=== PATIENT | male | born 1945 | race Caucasian/White ===

== ENCOUNTER 2024-07-08 11:10 | Inpatient (IN) ==
--- NOTE | 2024-07-08 13:04 | Emergency Department Note ---
Impression & Plan Acute right flank pain, Pneumonia ED Provider Note NAME: EPHRAIM PÉREZ AGE: 79 SEX: Male INFORMANT: Patient ED PROVIDER(S): Juan Membreno MD CHIEF COMPLAINT: Right flank pain PLAN: Disposition: Admitted Outpatient prescription management: none Referral: None MEDICAL DECISION MAKING: Patient presented with acute right flank pain. He noted a pleuritic component and on examination he did have tenderness in the right upper quadrant with Alvarez sign. Discussed the possible etiologies. Patient underwent CT imaging of the abdomen pelvis and blood work was obtained. He was given IV Dilaudid and Zofran for symptom control. Patient did require several doses. He had an unremarkable CT scan of the abdomen pelvis. His gallbladder seemed prominent and his bilirubin was mildly elevated. He underwent ultrasound imaging but no abnormalities were found to suggest cholecystitis or acute cholangitis. Patient did have a mild leukocytosis and radiology thought there may be an early infiltrative process in the right lower lobe with pleural effusion. Under the circumstances with his level of pleuritic chest pain on the right side he underwent CT PE study. No obvious pulmonary embolism was noted. I did review the CT with Dr. Palmer who did evaluate the patient's CT scan of the abdomen pelvis. He did feel there was a infiltrate and effusion noted on the right side. Initial report did not note this in the chest. Patient was treated with IV Rocephin and doxycycline. Cultures were ordered. Given the patient's level of discomfort and doses of pain medication received he was requiring supplemental nasal cannula oxygen. I discussed further management in the hospital with him and family and they were very much in agreement. Consultation [facility] with the [facility]. Patient was evaluated in the ER and admitted for further management Care/management discussed with: international marketing manager Level of care consideration(s): After review of the information above and other included data, I feel the patient requires escalation of care to admission Triage Nursing notes: reviewed and agree them. Vital Signs: reviewed and remarkable for no significant abnormalities Additional History obtained from: none Chronic Medical/Social Conditions affecting care: Hypertension Prior/ Outside/ External records reviewed: none Differential Diagnosis: Renal colic, UTI, appendicitis, diverticulitis, mesenteric ischemia, aortic pathology, infections, inflammatory bowel disease, PUD, biliary pathology, cardiac sources, PE, as well as other pathologies. Diagnostics, independently interpreted by me: ECG: Twelve-lead ECG reveals atrial fibrillation [address] elevation or depression. Cardiac Monitoring: Cardiac monitoring ordered by me: The patient was placed on continuous cardiac monitoring and observed. It revealed a atrial fibrillation at 74 bpm. Medical decision rules: none Imaging studies: CT scan of the abdomen pelvis and chest as above. Right pleural effusion and right infiltrate noted. HPI: 79 year old Male arrives for evaluation of right flank pain. This started this morning and is worsened by a deep breath. The patient also notes the following associated symptoms, none. The patient has not taken any medication for relieving factors. Current pain is rated as 8/10. Pt denies LOC, headache, fevers, chills, diaphoresis, visual changes, neck pain nausea, vomiting, L abdominal pain, L back pain, melena, hematochezia, urinary symptoms, numbness, weakness, lymphadenopathy, rash, or other complaints. . PAST MEDICAL HISTORY: See Below, CAD, Afib PAST SURGICAL HISTORY: See Below, SOCIAL HISTORY: See Below, HOME MEDICATIONS: See Below ALLERGIES: See Below VITALS: See Below PHYSICAL EXAMINATION: GENERAL: Awake, alert, well-appearing, in no distress HENT: Normocephalic, atraumatic. Oropharynx unremarkable. EYES: Normal conjunctiva. Sclera non-icteric. NECK: Inspection normal. Non-tender. Supple. No nuchal rigidity. FROM. No masses. RESPIRATORY: Clear to auscultation. No wheezes. No rales. Normal respiratory effort. CARDIAC: Normal rate. Normal rhythm. No murmurs. No rubs. Extremities warm and well perfused. Pulses equal. No JVD. GI: Soft, non-distended. RUQ tenderness to palpation. No rebound or guarding. No masses. RECTAL: Deferred. MUSCULOSKELETAL: Atraumatic. Chest examination reveals no tenderness. The back is symmetrical on inspection without obvious abnormality. There is no CVA tenderness to palpation. No joint edema. LOWER EXTREMITIES: Calves are equal size bilaterally and non-tender. No edema. No discoloration. NEURO: Normal sensorium. No sensory or motor deficits noted. SKIN: No rash or jaundice noted. PROCEDURES: none CRITICAL CARE: none OBSERVATION NOTE: none Past Med/Surg History Problem List (Updated 07/08/24 @ 22:16 by Juan Membreno MD) Pneumonia (Acute) Right lower lobe pneumonia Pleurisy Acute right flank pain (Acute) Encounter for pre-operative examination Hypercalcemia Medical History CAD (coronary artery disease) CABG x 4 (2020) Follows with [facility] cardio Peripheral neuropathy Sleep apnea Home study showed he was having periods of apnea. Formal sleep study recommended (not done yet) Atrial fibrillation Taking Eliquis Hypertension Hyperlipidemia Surgical History Hx of cardiac catheterization (04/2021) 04/2021 > CABG x4 (05/2021) History of tonsillectomy History of inguinal hernia repair x2, right side History of cataract surgery (2020) Bilateral History of cystoscopy History of colonoscopy History of coronary artery bypass graft CABG x4 (2020) Family History Mother Hypertension Father Viral encephalitis Brother Coronary heart disease Other History of coronary artery bypass graft Social History Smoking Status: Former smoker Tobacco Type: Cigarettes Second Hand Exposure: No; Do You Dip or Chew Tobacco: Yes (1/2 can per day); Hx Alcohol Use: Yes Hx Substance Use: Yes Last Used Substance Other:: medical maijuana every night to sleep Preferred Language: Azeri Communication Ability: Effective Comic Artist Required: No Beliefs That Will Affect Care: None Current Living Situation: Spouse current occupation: Retired Feels Safe at Home: Yes Assistive Devices: Cane, Denture - Upper, Denture - Lower, Glasses, Hearing Aid - Bilateral and Walker Allergies Allergies Allergy/AdvReac Type Severity Reaction Status Date / Time lisinopril Allergy Severe Angioedema Verified 07/01/24 11:22 Home Meds Home Medications Medication Instructions Recorded Confirmed apixaban 5 mg tablet 5 mg PO BID 05/24/21 07/08/24 atorvastatin 80 mg tablet 40 mg PO PM 05/24/21 07/08/24 magnesium oxide 500 mg PO DAILY 05/24/21 07/08/24 potassium chloride 20 mEq 20 meq PO QAM 05/24/21 07/08/24 tablet,extended release aspirin 81 mg tablet,delayed 81 mg PO QAM 12/16/21 07/08/24 release (Adult Aspirin Regimen) coenzyme Q10 200 mg capsule 200 mg PO DAILY 12/16/21 07/08/24 cyanocobalamin (vitamin B-12) 500 500 mcg PO DAILY 12/16/21 07/08/24 mcg tablet folic acid 0.8 mg capsule 0.8 mg PO DAILY 12/16/21 07/08/24 furosemide 40 mg tablet 40 mg PO QAM 12/16/21 07/08/24 losartan 50 mg tablet 100 mg PO QAM 12/16/21 07/08/24 metoprolol succinate 25 mg 25 mg PO QAM 12/16/21 07/08/24 tablet,extended release 24 hr nitroglycerin 0.4 mg sublingual 0.4 mg sublingual Q5M PRN Chest 12/16/21 07/08/24 tablet Pain omeprazole 20 mg capsule,delayed 20 mg PO QAM 12/16/21 07/08/24 release vit 168-iron 27 mg-folic 1 cap PO QAM 12/16/21 07/08/24 acid 800 mcg-omega3 235 mg capsule (One-A-Day -1) vit C 250 mg-vit E 90 mg-zinc 40 1 tab PO DAILY 12/16/21 07/08/24 mg-copper 1 [id number] capsule (PreserVision AREDS-2) vitamin B complex (B 1 tab PO DAILY 12/21/21 07/08/24 Complex-Vitamin B12 tablet) amlodipine 5 mg tablet 5 mg PO QAM 07/01/24 07/08/24 evolocumab 140 mg/mL subcutaneous 140 mg subcut UD 07/01/24 07/08/24 pen injector (Elizabeth Brown) hydralazine 25 mg tablet 25 mg PO TID 07/01/24 07/08/24 Results & Data (ED) Vital Signs Vital Signs - 24 hr 07/08/24 11:14 07/08/24 12:01 07/08/24 12:12 Temperature 37.4 C Temperature Source Temporal Artery Scan Pulse Rate 96 H 88 Pulse Rate [Apical] Pulse Rate from SpO2 Sensor Pulse Rhythm Respiratory Rate 22 Respiratory Effort / Characteristics Non-Labored Non-Labored Respiratory Depth Normal Normal Respiratory Pattern Regular Blood Pressure 141/78 H Blood Pressure [Left Arm] Blood Pressure [Right Arm] Blood Pressure Mean 99 Blood Pressure Mean [Left Arm] Blood Pressure Mean [Right Arm] Pulse Oximetry 95 Oxygen Delivery Method Room Air Room Air Oxygen Flow Rate Sepsis Recent Fever Within 48 Hours No Sepsis New/Unexplained Change in Mental Status No Sepsis Action Taken by Nursing No Action Required Oxygen Flow Rate - Titration Pulse Oximetry Post Tiitration 07/08/24 12:12 07/08/24 12:28 07/08/24 13:44 Temperature Temperature Source Pulse Rate 79 Pulse Rate [Apical] 84 Pulse Rate from SpO2 Sensor Pulse Rhythm Irregular Respiratory Rate 18 18 Respiratory Effort / Characteristics Respiratory Depth Respiratory Pattern Blood Pressure Blood Pressure [Left Arm] 123/64 Blood Pressure [Right Arm] Blood Pressure Mean Blood Pressure Mean [Left Arm] 83 Blood Pressure Mean [Right Arm] Pulse Oximetry 95 90 Oxygen Delivery Method Room Air Room Air Oxygen Flow Rate Sepsis Recent Fever Within 48 Hours Sepsis New/Unexplained Change in Mental Status Sepsis Action Taken by Nursing Oxygen Flow Rate - Titration Pulse Oximetry Post Tiitration 07/08/24 15:48 07/08/24 15:51 07/08/24 16:00 Temperature Temperature Source Pulse Rate 85 Pulse Rate [Apical] 86 Pulse Rate from SpO2 Sensor Pulse Rhythm Respiratory Rate 24 27 H Respiratory Effort / Characteristics Non-Labored Spontaneous Respiratory Depth Normal Respiratory Pattern Regular Blood Pressure Blood Pressure [Left Arm] Blood Pressure [Right Arm] 141/71 H Blood Pressure Mean Blood Pressure Mean [Left Arm] Blood Pressure Mean [Right Arm] 94 Pulse Oximetry 90 87 L Oxygen Delivery Method Room Air Nasal Cannula Oxygen Flow Rate 0 Sepsis Recent Fever Within 48 Hours Sepsis New/Unexplained Change in Mental Status Sepsis Action Taken by Nursing Oxygen Flow Rate - Titration 2 Pulse Oximetry Post Tiitration 95 07/08/24 16:02 07/08/24 16:12 07/08/24 16:20 Temperature Temperature Source Pulse Rate 94 H 89 Pulse Rate [Apical] Pulse Rate from SpO2 Sensor 92 H Pulse Rhythm Respiratory Rate 24 Respiratory Effort / Characteristics Respiratory Depth Respiratory Pattern Blood Pressure 139/80 Blood Pressure [Left Arm] Blood Pressure [Right Arm] Blood Pressure Mean 104 Blood Pressure Mean [Left Arm] Blood Pressure Mean [Right Arm] Pulse Oximetry 92 Oxygen Delivery Method Nasal Cannula Oxygen Flow Rate 2 Sepsis Recent Fever Within 48 Hours Sepsis New/Unexplained Change in Mental Status Sepsis Action Taken by Nursing Oxygen Flow Rate - Titration Pulse Oximetry Post Tiitration 07/08/24 17:00 07/08/24 17:21 07/08/24 17:42 Temperature Temperature Source Pulse Rate 91 H 91 H 90 Pulse Rate [Apical] Pulse Rate from SpO2 Sensor Pulse Rhythm Respiratory Rate 22 21 21 Respiratory Effort / Characteristics Respiratory Depth Respiratory Pattern Blood Pressure Blood Pressure [Left Arm] Blood Pressure [Right Arm] Blood Pressure Mean Blood Pressure Mean [Left Arm] Blood Pressure Mean [Right Arm] Pulse Oximetry 96 98 Oxygen Delivery Method Nasal Cannula Nasal Cannula Oxygen Flow Rate 2 2 Sepsis Recent Fever Within 48 Hours Sepsis New/Unexplained Change in Mental Status Sepsis Action Taken by Nursing Oxygen Flow Rate - Titration Pulse Oximetry Post Tiitration Laboratory Data 07/08/24 Unknown 07/08/24 Unknown Lab Results 07/08/24 07/08/24 Range/Units 12:01 14:11 Lactate 0.7 (0.4-2.0) mmol/L Urine Color Yellow Urine Appearance Clear (Clear) Urine pH 6.5 (4.5-7.5) Ur Specific [place] 1.005 (1.000-1.030) Urine Protein Negative (Negative) Urine Glucose (UA) Negative (Negative) Urine Ketones Negative (Negative) Urine Blood Negative (Negative) Urine Nitrite Negative (Negative) Urine Bilirubin Negative (Negative) Urine Urobilinogen Negative (Negative) Ur Leukocyte Esterase Negative (Negative) Administered Medications Discontinued Medications Hydromorphone HCl (Hydromorphone Inj 0.5 Mg/0.5 Ml Syr) 0.25 mg IV Q15M PRN PRN Reason: Pain Stop: 07/22/24 13:06 Last Admin: 07/08/24 14:47 Dose: 0.25 mg Documented By: Admin: 07/08/24 13:30 Dose: 0.25 mg Documented By: MANNY Ceftriaxone Sodium (Rocephin) 2,000 mg in 50 mls @ 100 mls/hr IV NOW STA Stop: 07/08/24 17:59 Last Infusion: 07/08/24 20:12 Dose: Infused Documented By: Admin: 07/08/24 18:57 Dose: 100 mls/hr Documented By: PERICO Doxycycline Hyclate 100 mg/ (Dextrose) 100 mls @ 50 mls/hr IV NOW STA Stop: 07/08/24 19:29 Last Infusion: 07/08/24 21:30 Dose: Infused Documented By: Admin: 07/08/24 19:27 Dose: 50 mls/hr Documented By: KIRAN Acetaminophen (Ofirmev) 1,000 mg in 100 mls @ 400 mls/hr IV NOW STA Stop: 07/08/24 17:49 Last Infusion: 07/08/24 18:51 Dose: Infused Documented By: Admin: 07/08/24 18:10 Dose: 400 mls/hr Documented By: JOEL Ioversol (Optiray 320 125ml) 119 ml IV ONCE ONE Stop: 07/08/24 16:27 Last Admin: 07/08/24 16:26 Dose: 119 ml Documented By: WILNER Ketorolac Tromethamine (Ketorolac Tromethamine 15 Mg/Ml Vial) 15 mg IV NOW ONE Stop: 07/08/24 18:39 Last Admin: 07/08/24 19:08 Dose: 15 mg Documented By: PERICO Lidocaine (Lidocaine 5% 1 Patch) 1 patch TD NOW STA Stop: 07/08/24 18:39 Last Admin: 07/08/24 19:09 Dose: 1 patch Documented By: PERICO Ondansetron HCl (Ondansetron Inj 2 Mg/Ml 2 Ml Vial) 4 mg IV NOW STA Stop: 07/08/24 13:08 Last Admin: 07/08/24 13:30 Dose: 4 mg Documented By: MANNY Imaging Data Radiologist's Impression: Abdomen/Pelvis CT 07/08/24 13:07 CT SCAN OF THE ABDOMEN AND PELVIS WITHOUT IV CONTRAST CLINICAL HISTORY: Right upper quadrant abdominal pain/right flank pain. COMPARISON STUDY: No priors. TECHNIQUE: CT scan of the abdomen and pelvis is performed from the lung bases to the proximal femora. Images are reviewed in the axial, sagittal, and coronal planes. IV contrast was not administered for this examination. A dose lowering technique was utilized adhering to the principles of ALARA. CT DOSE: 826.04 mGy.cm FINDINGS: Lung bases: The patient is status post midline sternotomy. The heart is enlarged and without pericardial effusion. The coronary arteries are densely calcified. The main pulmonary arteries are dilated suggesting pulmonary artery hypertension. Fibrotic changes seen at both lung bases. Question superimposed airspace opacities at the right lung base. Trace pleural fluid is seen on the right. A 6 mm pleural-based nodule in the right middle lobe along the minor fissure is seen on image #1. A 9 mm left basilar nodule as seen on image #18. There is a small hiatal hernia. Liver: The unenhanced liver is normal in size, contour, and attenuation. There is no intrahepatic biliary ductal dilatation. Gallbladder: Unremarkable. Spleen: Normal in size and attenuation. Pancreas: Unremarkable. Adrenal glands: Unremarkable. Kidneys: The unenhanced kidneys are normal in size and without hydronephrosis. There is a 3 mm nonobstructing right renal calculus. There are at least 5 nonobstructing left renal calculi which measure up to 4 mm. No ureteral stone is seen. Simple and complex renal cysts measuring up to 2.5 cm. Abdominal vasculature: The abdominal aorta is normal in course and caliber noting advanced atherosclerotic calcification. Bowel: There is mild colonic diverticulosis without CT evidence of acute diverticulitis. No bowel obstruction is seen. Mild fecal retention is seen throughout the colon. A duodenal diverticulum is noted. The appendix is well- visualized and normal. Peritoneum: There is no intraperitoneal free air or abdominal ascites. There is a small fat-containing umbilical hernia. Lymphadenopathy: None. Pelvic viscera: The prostate gland is diminutive and heterogeneous. The bladder is mildly distended, and the wall appears thickened/trabeculated indicating chronic outlet obstruction. Skeletal structures: The skeletal structures are osteopenic. There is moderate lumbosacral spondylosis. No lytic or blastic lesions are seen. IMPRESSION: 1. No acute infectious or inflammatory findings are identified in the abdomen or pelvis. 2. Cardiomegaly with fibrotic change seen at both lung bases. 3. Question superimposed airspace consolidation at the right lung base, and there is also trace pleural fluid on the right. Correlate clinically for evidence of a superimposed pneumonia/aspiration pneumonitis. 4. Bibasilar pulmonary nodules measuring up to 9 mm. Correlate with any prior outside imaging studies to assess for stability. If no prior studies are available a 3-4 month follow-up chest CT is recommended for reevaluation and full assessment of the thorax. 5. Bilateral nephrolithiasis. 6. Additional findings as above. ACT 112: Negative or not required by law. Electronically signed by: Ken Palmer M.D. 07/08/2024 1:40 PM Gallbladder Ultrasound 07/08/24 14:32 US gallbladder CLINICAL HISTORY: RUQ pain TECHNIQUE: Multiple real-time sonographic images of the right upper quadrant were obtained. Comparison: Comparison is made to CT abdomen pelvis 07/08/2024 FINDINGS: The liver is diffusely homogenous with normal contour and echogenicity. No focal mass lesions are seen. No intrahepatic ductal dilatation is seen. No gallstones or sludge are identified within the gallbladder. The gallbladder wall is not thickened. There is no pericholecystic fluid present. A sonographic Alvarez's sign was not elicited by the business intelligence administrator. The common duct measures 0.5 cm in diameter at the level of the hepatic artery. The visualized portions of the pancreas appear normal. The right kidney shows normal echogenicity, cortical thickness and renal contour. The right kidney shows no evidence of hydronephrosis. A cyst in the upper pole measures 1.5 x 1.6 x 1.3 cm. No ascites or free fluid is seen in Zimmer's pouch. IMPRESSION: Unremarkable right upper quadrant ultrasound. ACT 112: Negative or not required by law. Electronically signed by: Ramsey Fraga M.D. 07/08/2024 3:45 PM Chest CTA 07/08/24 15:47 CT angio chest PE protocol CLINICAL HISTORY: RUQ abd, pleuritic CP ?PE TECHNIQUE: Multidetector row helical CT of the chest was performed with angiographic protocol. Coronal and sagittal reformations were obtained. Coronal and sagittal MIPS were obtained from the axial data set and were submitted for review. Automated dose lowering techniques and/or adjustment according to patient size were utilized for this exam. CT DOSE: 483.27 mGy.cm Comparison: None available at the time of this dictation. FINDINGS: Lungs and pleura: Peripheral interstitial thickening is seen. Right fissural nodule is noted. There is an 8 mm nodule left lower lobe (series 4 image 96). Heart and pericardium: Cardiomegaly is seen with biatrial enlargement. Atrial appendage clip is seen. Vessels: No evidence of pulmonary embolism. Severe atherosclerotic disease is seen. Mediastinum and liz: Unremarkable. Chest wall and lower neck: Unremarkable. Abdomen: A hiatal hernia is seen. Bones: Degenerative changes in the thoracic spine. IMPRESSION: 1. No acute abnormality and in particular no evidence of pulmonary embolus. 2. Left lower lobe pulmonary nodule. According to Fleischner criteria, 3 month follow-up CT is recommended. 3. Interstitial lung disease. ACT 112: Negative or not required by law. Electronically signed by: Ramsey Fraga M.D. 07/08/2024 4:41 PM Discharge Plan Visit Data Chief Complaint: Back Injury/Pain Stated Complaint: BACK PAIN TO FRONT, SOB W/ PAIN, CONSTIPATION ED Provider: Juan Membreno Discharge Problem: Acute right flank pain, Pneumonia Discharge Instructions Interventions: ED Discharge Assessment Last Done: 07/08/24 21:18
[2024-07-08 13:09] LABS: Appearance Urine Clear (Clear); Bilirubin Urine Negative (Negative); Blood Urine Negative (Negative); Color Urine Yellow; Glucose Urine UA Negative (Negative); Ketones Urine Negative (Negative); Leukocyte Esterase Urine Negative (Negative); Nitrite Urine Negative (Negative); Protein Urine Negative (Negative); Specific Gravity Urine 1.005 (1.000-1.030); Urobilinogen Urine Negative (Negative); pH Urine 6.5 (4.5-7.5)
[2024-07-08 13:12] LABS: Basophils # (auto) 0.03 K/uL (0.00-0.20); Basophils % (auto) 0.3 %; Eosinophils # (auto) 0.04 K/uL (0.00-0.50); Eosinophils % (auto) 0.3 %; Hematocrit (blood only) 38.9 % (42.0-52.0); Hemoglobin 13.2 g/dl (14.0-18.0); Immature Granulocytes # (auto) 0.04 K/uL (0.01-0.20); Immature Granulocytes % (auto) 0.3 %; Lymphocytes % (auto) 8.7 %; Mean Corpuscular Hemoglobin 32.5 pg (25.0-34.0); Mean Corpuscular Hgb Conc 33.9 g/dL (32.0-36.0); Mean Corpuscular Volume 95.8 fL (80.0-100.0); Mean Platelet Volume 10.6 fL (9.4-12.4); Monocytes # (auto) 1.22 K/uL (0.11-0.59); Monocytes % (auto) 10.7 %; Neutrophils # (auto) 9.11 K/uL (1.40-6.50); Neutrophils % (auto) 79.7 %; Platelet Count 159 K/uL (130-400); RDW Standard Deviation 45.5 fL (36.4-46.3); Red Blood Count 4.06 M/uL (4.70-6.10); White Blood Count 11.44 K/ul (4.8-10.8)
[2024-07-08] MEDS: ONDANSETRON INJ 2 MG/ML 2 ML VIAL IV STA (13:30)
[2024-07-08] MEDS: HYDROmorphone INJ 0.5 MG/0.5 ML SYR IV PRN (13:30)
[2024-07-08 13:40] LABS: Albumin Globulin Ratio 1.4 (0.9-2); Albumin Level 4.7 gm/dl (3.4-5.0); BUN Creatinine Ratio 14.8 (10-20); Bilirubin,Total 1.2 mg/dl (0.2-1.0); Calcium 10.8 mg/dl (8.6-10.3); Creatinine Clr Calc Pharmacy 93.3 ml/min; Globulin 3.3 gm/dl (2.5-4.0); Potassium 3.5 mmol/L (3.5-5.1)
[2024-07-08 13:42] LABS: Troponin I High Sensitivity 5.3 pg/ml (0-20)
--- NOTE | 2024-07-08 13:42 | CT Scan Report ---
CT SCAN OF THE ABDOMEN AND PELVIS WITHOUT IV CONTRAST CLINICAL HISTORY: Right upper quadrant abdominal pain/right flank pain. COMPARISON STUDY: No priors. TECHNIQUE: CT scan of the abdomen and pelvis is performed from the lung bases to the proximal femora. Images are reviewed in the axial, sagittal, and coronal planes. IV contrast was not administered for this examination. A dose lowering technique was utilized adhering to the principles of ALARA. CT DOSE: 826.04 mGy.cm FINDINGS: Lung bases: The patient is status post midline sternotomy. The heart is enlarged and without pericard ial effusion. The coronary arteries are densely calcified. The main pulmonary arteries are dilated nj ggesting pulmonary artery hypertension. Fibrotic changes seen at both lung bases. Question superimpos ed airspace opacities at the right lung base. Trace pleural fluid is seen on the right. A 6 mm pleura l-based nodule in the right middle lobe along the minor fissure is seen on image #1. A 9 mm left basi lar nodule as seen on image #18. There is a small hiatal hernia. Liver: The unenhanced liver is normal in size, contour, and attenuation. There is no intrahepatic ruthie iary ductal dilatation. Gallbladder: Unremarkable. Spleen: Normal in size and attenuation. Pancreas: Unremarkable. Adrenal glands: Unremarkable. Kidneys: The unenhanced kidneys are normal in size and without hydronephrosis. There is a 3 mm nonobs tructing right renal calculus. There are at least 5 nonobstructing left renal calculi which measure u p to 4 mm. No ureteral stone is seen. Simple and complex renal cysts measuring up to 2.5 cm. Abdominal vasculature: The abdominal aorta is normal in course and caliber noting advanced atheroscle rotic calcification. Bowel: There is mild colonic diverticulosis without CT evidence of acute diverticulitis. No bowel obs truction is seen. Mild fecal retention is seen throughout the colon. A duodenal diverticulum is noted . The appendix is well-visualized and normal. Peritoneum: There is no intraperitoneal free air or abdominal ascites. There is a small fat-containin g umbilical hernia. Lymphadenopathy: None. Pelvic viscera: The prostate gland is diminutive and heterogeneous. The bladder is mildly distended, and the wall appears thickened/trabeculated indicating chronic outlet obstruction. Skeletal structures: The skeletal structures are osteopenic. There is moderate lumbosacral spondylosi s. No lytic or blastic lesions are seen. IMPRESSION: 1. No acute infectious or inflammatory findings are identified in the abdomen or pelvis. 2. Cardiomegaly with fibrotic change seen at both lung bases. 3. Question superimposed airspace consolidation at the right lung base, and there is also trace pleur al fluid on the right. Correlate clinically for evidence of a superimposed pneumonia/aspiration pneum onitis. 4. Bibasilar pulmonary nodules measuring up to 9 mm. Correlate with any prior outside imaging studies to assess for stability. If no prior studies are available a 3-4 month follow-up chest CT is recomme nded for reevaluation and full assessment of the thorax. 5. Bilateral nephrolithiasis. 6. Additional findings as above. ACT 112: Negative or not required by law. Electronically signed by: Ken Palmer M.D. 07/08/2024 1:40 PM
--- NOTE | 2024-07-08 15:46 | Ultrasound Report ---
US gallbladder CLINICAL HISTORY: RUQ pain TECHNIQUE: Multiple real-time sonographic images of the right upper quadrant were obtained. Comparison: Comparison is made to CT abdomen pelvis 07/08/2024 FINDINGS: The liver is diffusely homogenous with normal contour and echogenicity. No focal mass lesions are see n. No intrahepatic ductal dilatation is seen. No gallstones or sludge are identified within the g allbladder. The gallbladder wall is not thickened. There is no pericholecystic fluid present. A sonog raphic Alvarez's sign was not elicited by the extension service specialist in charge. The common duct measures 0.5 cm in diamet er at the level of the hepatic artery. The visualized portions of the pancreas appear normal. The right kidney shows normal echogenicity, cortical thickness and renal contour. The right kidney sh ows no evidence of hydronephrosis. A cyst in the upper pole measures 1.5 x 1.6 x 1.3 cm. No ascites or free fluid is seen in Zimmer's pouch. IMPRESSION: Unremarkable right upper quadrant ultrasound. ACT 112: Negative or not required by law. Electronically signed by: Ramsey Fraga M.D. 07/08/2024 3:45 PM
--- NOTE | 2024-07-08 16:24 | Electrocardiogram Report ---
Test Reason : Blood Pressure : */* mmHG Vent. Rate : 87 BPM Atrial Rate : * BPM P-R Int : * ms QRS Dur : 92 ms QT Int : 372 ms P-R-T Axes : * 42 56 degrees QTcB Int : 447 ms Atrial fibrillation Abnormal ECG No previous ECGs available Confirmed by Raman Dwyer ([id number]) on 07/08/2024 4:24:04 PM Referred By: REFERRED SELF Confirmed By: Raman Dwyer
[2024-07-08] MEDS: OPTIRAY 320 125ml IV ONE (16:26)
--- NOTE | 2024-07-08 16:43 | CT Scan Report ---
CT angio chest PE protocol CLINICAL HISTORY: RUQ abd, pleuritic CP ?PE TECHNIQUE: Multidetector row helical CT of the chest was performed with angiographic protocol. Alford l and sagittal reformations were obtained. Coronal and sagittal MIPS were obtained from the axial jd a set and were submitted for review. Automated dose lowering techniques and/or adjustment according to patient size were utilized for this exam. CT DOSE: 483.27 mGy.cm Comparison: None available at the time of this dictation. FINDINGS: Lungs and pleura: Peripheral interstitial thickening is seen. Right fissural nodule is noted. There i s an 8 mm nodule left lower lobe (series 4 image 96). Heart and pericardium: Cardiomegaly is seen with biatrial enlargement. Atrial appendage clip is seen. Vessels: No evidence of pulmonary embolism. Severe atherosclerotic disease is seen. Mediastinum and liz: Unremarkable. Chest wall and lower neck: Unremarkable. Abdomen: A hiatal hernia is seen. Bones: Degenerative changes in the thoracic spine. IMPRESSION: 1. No acute abnormality and in particular no evidence of pulmonary embolus. 2. Left lower lobe pulmonary nodule. According to Fleischner criteria, 3 month follow-up CT is recom mended. 3. Interstitial lung disease. ACT 112: Negative or not required by law. Electronically signed by: Ramsey Fraga M.D. 07/08/2024 4:41 PM
--- NOTE | 2024-07-08 18:02 | History & Physical Report ---
Date of Service July 08, 2024 Assessment & Plan (1) Pleurisy: (2) Right lower lobe pneumonia: (3) CAD (coronary artery disease): (4) Atrial fibrillation: (5) Hypertension: (6) Hyperlipidemia: Plan This is a 79-year-old male who has significant past medical history of CAD with CABG x 4 ((ANTUNEZ to LAD, SVG to ramus, OM, PDA), radiofrequency atrial ablation, and ligation of the left atrial appendage with a 45 mm Atricure clip by Dr. Lazo), PAF with history of maze procedure, HTN, HLD, prediabetes, mild aortic regurgitation, mild mitral regurgitation, suspected sleep apnea, cerebellar ataxia, chronic bilateral low back pain, autoimmune cerebellar degeneration who presents to ED secondary to shortness of breath and right flank pain x 1 day. Pt Underwent FERNIE on 07/03, ? if pt had episode of aspiration R lung Pleurisy RLL Pneumonia admit to Pager tx with IV unasyn and oral doxy, + probiotic incentive spirometry, prn neb, Lidocaine patch give one time dose of Toradol x 1 now biofire pending --CT Question superimposed airspace consolidation at the right lung base, and there is also trace pleural fluid on the right. Correlate clinically for evidence of a superimposed pneumonia/aspiration pneumonitis. CAD s/p CABG x 4 - no CP, continue asa, eliquis, losartan, hydralazine, repatha PAF with ANAMIKA - rate controlled on metoprolol, continue apixaban HTN: chronic, stable on losartan, hydralazine, lasix, metoprolol, amlodipine HLD: chronic, stable on statin and repatha Pulmonary Nodule: incidental finding on CT, Left lower lobe pulmonary nodule. According to Fleischner criteria, 3 month follow-up CT is recommended. DVT ppx: Eliquis FULL CODE PCP: Ariana Dispo: admit to Pager Pt was seen and examined in collaboration with Dr. Peres, please see addendum I spent a total of 76 minutes minutes reviewing notes, outpatient records, labs, medication, coordinating, documenting and providing care for this patient excluding time spent in the performance of separately billed services. History of Present Illness Chief Complaint: Shortness of breath and right flank pain x 1 day. Primary Care Provider: Dk Lane MD This is a 79-year-old male who has significant past medical history of CAD with CABG x 4 ((ANTUNEZ to LAD, SVG to ramus, OM, PDA), radiofrequency atrial ablation, and ligation of the left atrial appendage with a 45 mm Atricure clip by Dr. Lazo), PAF with history of maze procedure, HTN, HLD, prediabetes, mild aortic regurgitation, mild mitral regurgitation, suspected sleep apnea, cerebellar ataxia, chronic bilateral low back pain, autoimmune cerebellar degeneration who presents to ED secondary to shortness of breath and right flank pain x 1 day. History obtained from patient, family at bedside and chart review. Patient recently underwent Trans esophageal echocardiogram on 07/03/2024 which reserved a preserved EF 55 to 60%, status post a surgical left atrial appendage occlusion with atrial clip device. There is no residual flow within the left atrial appendage. There is a mobile linear echodensity on the aortic aspect of the aortic valve measuring 9 mm x 2 mm consistent with a Lambl's excrescence. Pt reports Pain to his R flank and around to this R lower abdomen since last evening. It abruptly woke him from sleep at 2 a.m. to the point he was having difficulty breathing. He states the pain is so severe it takes his breath away. He complains of severe pain with inspiration and inability to take a deep breath. He has a minimal cough. He is unaware of an aspirating event during his procedure. He denies f/c/s, hemoptysis, n/v/d, abd pain, change in bowel or urinary habits. Allergies Allergy/AdvReac Type Severity Reaction Status Date / Time lisinopril Allergy Severe Angioedema Verified 07/01/24 11:22 Home Medications Medication Instructions Recorded Confirmed Type apixaban 5 mg tablet 5 mg PO BID 05/24/21 07/08/24 History atorvastatin 80 mg tablet 40 mg PO PM 05/24/21 07/08/24 History magnesium oxide 500 mg PO DAILY 05/24/21 07/08/24 History potassium chloride 20 mEq 20 meq PO QAM 05/24/21 07/08/24 History tablet,extended release aspirin 81 mg tablet,delayed 81 mg PO QAM 12/16/21 07/08/24 History release (Adult Aspirin Regimen) coenzyme Q10 200 mg capsule 200 mg PO DAILY 12/16/21 07/08/24 History cyanocobalamin (vitamin B-12) 500 500 mcg PO DAILY 12/16/21 07/08/24 History mcg tablet folic acid 0.8 mg capsule 0.8 mg PO DAILY 12/16/21 07/08/24 History furosemide 40 mg tablet 40 mg PO QAM 12/16/21 07/08/24 History losartan 50 mg tablet 100 mg PO QAM 12/16/21 07/08/24 History metoprolol succinate 25 mg 25 mg PO QAM 12/16/21 07/08/24 History tablet,extended release 24 hr nitroglycerin 0.4 mg sublingual 0.4 mg sublingual Q5M PRN Chest 12/16/21 07/08/24 History tablet Pain omeprazole 20 mg capsule,delayed 20 mg PO QAM 12/16/21 07/08/24 History release vit 168-iron 27 mg-folic 1 cap PO QAM 12/16/21 07/08/24 History acid 800 mcg-omega3 235 mg capsule (One-A-Day -1) vit C 250 mg-vit E 90 mg-zinc 40 1 tab PO DAILY 12/16/21 07/08/24 History mg-copper 1 [id number]-olfguo capsule (PreserVision AREDS-2) vitamin B complex (B 1 tab PO DAILY 12/21/21 07/08/24 History Complex-Vitamin B12 tablet) amlodipine 5 mg tablet 5 mg PO QAM 07/01/24 07/08/24 History evolocumab 140 mg/mL subcutaneous 140 mg subcut UD 07/01/24 07/08/24 History pen injector (Elizabeth Brown) hydralazine 25 mg tablet 25 mg PO TID 07/01/24 07/08/24 History Past Med/Surg History Problem List (Updated 07/08/24 @ 18:52 by Jeimy Anderson PA-C) Right lower lobe pneumonia Pleurisy Acute right flank pain (Acute) Encounter for pre-operative examination Hypercalcemia Medical History CAD (coronary artery disease) CABG x 4 (2020) Follows with [facility] Peripheral neuropathy Sleep apnea Home study showed he was having periods of apnea. Formal sleep study recommended (not done yet) Atrial fibrillation Taking Eliquis Hypertension Hyperlipidemia Surgical History Hx of cardiac catheterization (04/2021) 04/2021 > CABG x4 (05/2021) History of tonsillectomy History of inguinal hernia repair x2, right side History of cataract surgery (2020) Bilateral History of cystoscopy History of colonoscopy History of coronary artery bypass graft CABG x4 (2020) Family History Mother Hypertension Father Viral encephalitis Brother Coronary heart disease Other History of coronary artery bypass graft Social History Smoking Status: Former smoker Tobacco Type: Cigarettes Second Hand Exposure: No; Do You Dip or Chew Tobacco: Yes (1/2 can per day); Hx Alcohol Use: Yes Hx Substance Use: Yes Last Used Substance Other:: medical joaquim every night to sleep Preferred Language: Stateless Communication Ability: Effective Web Knitter Required: No Beliefs That Will Affect Care: None Current Living Situation: Spouse current occupation: Retired Feels Safe at Home: Yes Assistive Devices: Cane, Denture - Upper, Denture - Lower, Glasses, Hearing Aid - Bilateral and Walker Review of Systems Review of Systems: All systems reviewed & are unremarkable except as noted in HPI & below Physical Exam Physical Exam: Constitutional: WD/WN, vitals as above, NAD, sitting up in bed, pleasant, conversing easily Head: Normocephalic, Atraumatic Eyes: PERRL, conjunctivae normal, anicteric sclerae ENMT: external ear and nose normal, oropharynx normal Neck: trachea midline, no thyromegaly normal visual inspection Respiratory: normal respiratory effort, +guarding with inspiration, + rales to RLL, lungs clear to auscultation, no wheeze,rhonchi. on 2L of O2 Heart: IRR/IRR, no murmur noted Chest: normal inspection of chest Abdomen: normal bowel sounds, soft, nontender, no hepatosplenomegaly Musculoskeletal: no cyanosis or clubbing, extremities motor strength 5/5 Skin: no rashes, warm and dry normal turgor Neurologic: PERRL, EOMI, accommodation nl, no face palsy, no dysarthria CN's II-XI intact bilaterally and moves all extremities Psychiatric: A+Ox3, euthymic affect Lymphatic: no cervical or axillary lymphadenopathy : deferred Results & Data Results & Data Vital Signs (Past 12 Hours) Vital Signs Temp Pulse Pulse Resp BP BP BP 07/08/24 16:20 89 07/08/24 15:51 07/08/24 15:48 86 24 141/71 H 07/08/24 13:44 84 18 123/64 07/08/24 12:28 79 18 07/08/24 12:12 07/08/24 12:12 07/08/24 12:01 88 07/08/24 11:14 37.4 C 96 H 22 141/78 H Pulse Ox O2 Del Method O2 Flow Rate 07/08/24 16:20 07/08/24 15:51 87 L Nasal Cannula 0 07/08/24 15:48 90 Room Air 07/08/24 13:44 90 07/08/24 12:28 95 Room Air 07/08/24 12:12 Room Air 07/08/24 12:12 Room Air 07/08/24 12:01 07/08/24 11:14 95 Room Air Laboratory Results I have independently reviewed and interpreted patient's admitting labs including CBC, CMP, trop, lipase, urine Diagnostic Findings Abdomen/Pelvis CT 07/08/24 13:07 CT SCAN OF THE ABDOMEN AND PELVIS WITHOUT IV CONTRAST CLINICAL HISTORY: Right upper quadrant abdominal pain/right flank pain. COMPARISON STUDY: No priors. TECHNIQUE: CT scan of the abdomen and pelvis is performed from the lung bases to the proximal femora. Images are reviewed in the axial, sagittal, and coronal planes. IV contrast was not administered for this examination. A dose lowering technique was utilized adhering to the principles of ALARA. CT DOSE: 826.04 mGy.cm FINDINGS: Lung bases: The patient is status post midline sternotomy. The heart is enlarged and without pericardial effusion. The coronary arteries are densely calcified. The main pulmonary arteries are dilated suggesting pulmonary artery hypertension. Fibrotic changes seen at both lung bases. Question superimposed airspace opacities at the right lung base. Trace pleural fluid is seen on the right. A 6 mm pleural-based nodule in the right middle lobe along the minor fissure is seen on image #1. A 9 mm left basilar nodule as seen on image #18. There is a small hiatal hernia. Liver: The unenhanced liver is normal in size, contour, and attenuation. There is no intrahepatic biliary ductal dilatation. Gallbladder: Unremarkable. Spleen: Normal in size and attenuation. Pancreas: Unremarkable. Adrenal glands: Unremarkable. Kidneys: The unenhanced kidneys are normal in size and without hydronephrosis. There is a 3 mm nonobstructing right renal calculus. There are at least 5 nonobstructing left renal calculi which measure up to 4 mm. No ureteral stone is seen. Simple and complex renal cysts measuring up to 2.5 cm. Abdominal vasculature: The abdominal aorta is normal in course and caliber noting advanced atherosclerotic calcification. Bowel: There is mild colonic diverticulosis without CT evidence of acute diverti culitis. No bowel obstruction is seen. Mild fecal retention is seen throughout the colon. A duodenal diverticulum is noted. The appendix is well-visualized and normal. Peritoneum: There is no intraperitoneal free air or abdominal ascites. There is a small fat-containing umbilical hernia. Lymphadenopathy: None. Pelvic viscera: The prostate gland is diminutive and heterogeneous. The bladder is mildly distended, and the wall appears thickened/trabeculated indicating chronic outlet obstruction. Skeletal structures: The skeletal structures are osteopenic. There is moderate lumbosacral spondylosis. No lytic or blastic lesions are seen. IMPRESSION: 1. No acute infectious or inflammatory findings are identified in the abdomen or pelvis. 2. Cardiomegaly with fibrotic change seen at both lung bases. 3. Question superimposed airspace consolidation at the right lung base, and there is also trace pleural fluid on the right. Correlate clinically for evidence of a superimposed pneumonia/aspiration pneumonitis. 4. Bibasilar pulmonary nodules measuring up to 9 mm. Correlate with any prior outside imaging studies to assess for stability. If no prior studies are available a 3-4 month follow-up chest CT is recommended for reevaluation and full assessment of the thorax. 5. Bilateral nephrolithiasis. 6. Additional findings as above. ACT 112: Negative or not required by law. Electronically signed by: Ken Palmer M.D. 07/08/2024 1:40 PM Gallbladder Ultrasound 07/08/24 14:32 US gallbladder CLINICAL HISTORY: RUQ pain TECHNIQUE: Multiple real-time sonographic images of the right upper quadrant were obtained. Comparison: Comparison is made to CT abdomen pelvis 07/08/2024 FINDINGS: The liver is diffusely homogenous with normal contour and echogenicity. No focal mass lesions are seen. No intrahepatic ductal dilatation is seen. No gallstones or sludge are identified within the gallbladder. The gallbladder wall is not thickened. There is no pericholecystic fluid present. A sonographic Alvarez's sign was not elicited by the supervisor print line. The common duct measures 0.5 cm in diameter at the level of the hepatic artery. The visualized portions of the pancreas appear normal. The right kidney shows normal echogenicity, cortical thickness and renal contour. The right kidney shows no evidence of hydronephrosis. A cyst in the upper pole measures 1.5 x 1.6 x 1.3 cm. No ascites or free fluid is seen in Zimmer's pouch. IMPRESSION: Unremarkable right upper quadrant ultrasound. ACT 112: Negative or not required by law. Electronically signed by: Ramsey Fraga M.D. 07/08/2024 3:45 PM Chest CTA 07/08/24 15:47 CT angio chest PE protocol CLINICAL HISTORY: RUQ abd, pleuritic CP ?PE TECHNIQUE: Multidetector row helical CT of the chest was performed with angiographic protocol. Coronal and sagittal reformations were obtained. Coronal and sagittal MIPS were obtained from the axial data set and were submitted for review. Automated dose lowering techniques and/or adjustment according to patient size were utilized for this exam. CT DOSE: 483.27 mGy.cm Comparison: None available at the time of this dictation. FINDINGS: Lungs and pleura: Peripheral interstitial thickening is seen. Right fissural nodule is noted. There is an 8 mm nodule left lower lobe (series 4 image 96). Heart and pericardium: Cardiomegaly is seen with biatrial enlargement. Atrial appendage clip is seen. Vessels: No evidence of pulmonary embolism. Severe atherosclerotic disease is seen. Mediastinum and liz: Unremarkable. Chest wall and lower neck: Unremarkable. Abdomen: A hiatal hernia is seen. Bones: Degenerative changes in the thoracic spine. IMPRESSION: 1. No acute abnormality and in particular no evidence of pulmonary embolus. 2. Left lower lobe pulmonary nodule. According to Fleischner criteria, 3 month follow-up CT is recommended. 3. Interstitial lung disease. ACT 112: Negative or not required by law. Electronically signed by: Ramsey Fraga M.D. 07/08/2024 4:41 PM Medications Administered Medication List Hydromorphone HCl (Hydromorphone Inj 0.5 Mg/0.5 Ml Syr) 0.25 mg IV Q15M PRN PRN Reason: Pain Stop: 07/22/24 13:06 Last Admin: 07/08/24 14:47 Dose: 0.25 mg Documented By: Admin: 07/08/24 13:30 Dose: 0.25 mg Documented By: MANNY Discontinued Medications Ioversol (Optiray 320 125ml) 119 ml IV ONCE ONE Stop: 07/08/24 16:27 Last Admin: 07/08/24 16:26 Dose: 119 ml Documented By: WILNER Ondansetron HCl (Ondansetron Inj 2 Mg/Ml 2 Ml Vial) 4 mg IV NOW STA Stop: 07/08/24 13:08 Last Admin: 07/08/24 13:30 Dose: 4 mg Documented By: MANNY ECG Additional Comments: I have independently reviewed and interpreted patient's admitting EKG which revealed: 87 atrial fib, qtc 447ms COVID-19 Results Results COVID-19 Adm Lab Results: RBC 4.06 M/uL (4.70-6.10) L 07/08/24 WBC 11.44 K/ul (4.8-10.8) H 07/08/24 Hgb 13.2 g/dl (14.0-18.0) L 07/08/24 Hct 38.9 % (42.0-52.0) L 07/08/24 Plt Count 159 K/uL (130-400) 07/08/24 Neutrophils (%) (Auto) 79.7 % 07/08/24 Lymphocytes (%) (Auto) 8.7 % 07/08/24 Monocytes # (Auto) 1.22 K/uL (0.11-0.59) H 07/08/24 Eosinophils # (Auto) 0.04 K/uL (0.00-0.50) 07/08/24 Immature Granulocyte % (Auto) 0.3 % 07/08/24 Lymphocytes # (Auto) 1.00 K/uL (1.20-3.40) L 07/08/24 Monocytes # (Auto) 1.22 K/uL (0.11-0.59) H 07/08/24 Eosinophils # (Auto) 0.04 K/uL (0.00-0.50) 07/08/24 Basophils # (Auto) 0.03 K/uL (0.00-0.20) 07/08/24 Immature Granulocyte # (Auto) 0.04 K/uL (0.01-0.20) 4 Na 137 mmol/L (136-145) 07/08/24 K 3.5 mmol/L (3.5-5.1) 07/08/24 Cl 100 mmol/L (98-107) 07/08/24 CO2 28 mmol/L (21-32) 07/08/24 Anion Gap 9 (3-11) 07/08/24 BUN 9 mg/dl (6-23) 07/08/24 Creatinine 0.61 mg/dl (0.6-1.4) 07/08/24 BUN/Creatinine Ratio 14.8 (10-20) 07/08/24 Glucose Level 103 mg/dl (70-99(Fasting)) H 07/08/24 Ca 10.8 mg/dl (8.6-10.3) H 07/08/24 Total Bilirubin 1.2 mg/dl (0.2-1.0) H 07/08/24 AST/SGOT 22 U/L (13-39) 07/08/24 ALT/SGPT 16 U/L (7-52) 07/08/24 Alkaline Phosphatase 48 U/L (34-104) 07/08/24 Total Protein 8.0 gm/dl (6.0-8.3) 07/08/24 Albumin 4.7 gm/dl (3.4-5.0) 07/08/24 Globulin 3.3 gm/dl (2.5-4.0) 07/08/24 Albumin/Globulin Ratio 1.4 (0.9-2) 07/08/24 Procalcitonin 0.03 ng/ml (0-0.5) 07/08/24 Adenovirus (PCR) Pending 07/08/24 B. parapertussis DNA (PCR) Pending 07/08/24 B. pertussis DNA (PCR) Pending 07/08/24 C. pneumoniae DNA (PCR) Pending 07/08/24 Coronavirus Type OC43 (PCR) Pending 07/08/24 Coronavirus Type HKU1 (PCR) Pending 07/08/24 Coronavirus Type 229E (PCR) Pending 07/08/24 COVID-19 PCR Pending 07/08/24 Coronavirus Type NL63 (PCR) Pending 07/08/24 Human Metapneumovirus (PCR) Pending 07/08/24 Influenza Virus Type B (PCR) Pending 07/08/24 M. pneumoniae (PCR) Pending 07/08/24 Parainfluenza Type 1 (PCR) Pending 07/08/24 Parainfluenza Type 2 (PCR) Pending 07/08/24 Parainfluenza Type 3 (PCR) Pending 07/08/24 Parainfluenza Type 4 (PCR) Pending 07/08/24 RSV (PCR) Pending 07/08/24 Enterovirus/Rhinovirus (PCR) Pending 07/08/24 Code Status & VTE Plan Code Status FULL CODE Supervising Physician Co-Signing Physician Notes Jamarcus Marinelli is a 79-year-old male with CAD with CABG x 4 ((ANTUNEZ to LAD, SVG to ramus, OM, PDA), radiofrequency atrial ablation, and ligation of the left atrial appendage with [place] [facility] [place] PAF with history of maze procedure, HTN, HLD, prediabetes, mild aortic regurgitation, mild mitral regurgitation, suspected sleep apnea, cerebellar ataxia, chronic bilateral low back pain and autoimmune cerebellar degeneration. He [place] 07[place]03[place]24 [place] [facility] [place] Pt presented to the ED today with RUQ pain and right flank pain. RUQ US is negative. CT PE study is negative for PE but positive for right lower lobe infiltrate and pleural effusion. General- adult elderly male seen at bedside with Jeimy Anderson PA-C. His son and are present. Head- atraumatic Eyes- PERRL, EOMI, anicteric ENT- oropharynx clear Neck- supple, no JVD, no adenopathy, no thyromegaly; carotids +2/2, no bruits appreciated Lungs-diminished breath sounds and crackles in the right base Heart-irregularly irregular with a controlled rate Abdomen- normal bowel sounds, soft, nontender, no masses or hepatosplenomegaly Extremities- no pretibial edema, no calf tenderness; peripheral pulses intact Neuro- alert, oriented x 3; PERRL, EOMI; no facial palsy; no dysarthria; motor 5/5 bilaterally; Chart and data reviewed. Continue IV Unasyn for suspected aspiration pneumonitis. I agree with the assessment and plan by the JOAN as outlined above. Total of 35 minutes spent in documentation, chart review, x-ray reviews and care coordination for this patient
[2024-07-08] MEDS: ACETAMINOPHEN 1,000 MG/100 ML VIAL IV STA (18:10)
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
--- OUTSIDE RECORDS SUMMARY | 2024-07-08 18:46 | External Medical Summary | Summary of Care ---
Author Name Unknown Organization [facility] Address [address] [place] [address] Phone [phone] Care Team Providers Care It Infrastructure Architect Name Role Phone Dk Lane MD Primary Care Provide r Encounter Details Date Type Department Care Team (Late st Contact Info) Description 07/03/2024 Result Scan Unspecified Department <No scans attached> Allergies Active Allergy Reactions Criticality Noted Date [...] . Active Furosemide 40 MG Oral Tablet (Lasix)Indications :Essential hypertension with goal blood pressure less than 140/90 TAKE ONE TABLET BY MOUTH EVERY DAY 100 Tablet 3 07/26/2023 4 Active Losartan Potassium 100 MG Oral Tablet (Cozaar)Indication s:Essential hypertension with goal blood pressure less than 140/90 TAKE ONE TABLET BY MOUTH EVERY MORNING 100 Tablet 3 07/26/2023 5 Active Omeprazole 20 MG Oral Capsule Delayed Release (PriLOSEC)Indicati ons:Gastroesophage al reflux disease TAKE ONE CAPSULE BY MOUTH EVERY DAY 100 Capsule 2 07/27/2023 4 Active Apixaban 5 MG Oral Tablet (Eliquis)Indicatio ns:Paroxysmal atrial fibrillation (HCC) TAKE ONE TABLET BY MOUTH TWICE A DAY 180 Tablet 3 08/21/2023 4 Active hydrALAZINE HCl 25 MG Oral Tablet (Apresoline)Indica tions:Essential hypertension with goal blood pressure less than 140/90 Take 1 Tablet by mouth in the morning and 1 Tablet at noon and 1 Tablet before bedtime. 270 Tablet 3 09/05/2023 Active Potassium Chloride Shawna ER 20 MEQ Oral Tablet Extended ReleaseIndications :Hypokalemia TAKE ONE TABLET BY MOUTH EVERY DAY 100 Tablet 3 11/16/2023 5 Active Atorvastatin Calcium 40 MG Oral Tablet (Lipitor)Indicatio ns:Dyslipidemia, goal LDL below 70 Take 1 Tablet by mouth daily. 100 Tablet 3 11/21/2023 Active 27-1 MG Oral TabletIndications: Dyslipidemia, goal LDL below 70,S/P CABG x 4,Atherosclerosis of [place] coronary artery of [place] heart without angina pectoris TAKE ONE TABLET BY MOUTH EVERY DAY IN THE MORNING 90 Tablet 3 12/03/2023 5 Active Metoprolol Succinate ER 25 MG Oral Tablet Extended Release 24 Hour (toPROL XL)Indications:Par oxysmal atrial fibrillation (HCC),Essential hypertension with goal blood [...] Active amLODIPine Besylate 5 MG Oral Tablet (Norvasc)Indicatio ns:Essential hypertension with goal blood pressure less than 140/90 Take 1 Tablet by mouth in the morning. 100 Tablet 1 05/15/2024 Active Magnesium 500 MG Oral Capsule Take 1 Capsule by mouth in the morning. Active documented as of this encounter (statuses as [...] CABG x 4 06/14/2021 Coronary atherosclerosis of [place] coronary sneha ry 06/09/2021 Paroxysmal atrial fibrillation [...] MCG/0.3 mL, 12 YRS AND ABOVE, IM (RuffaloCODY-ComirnatEnhanced Surface Dynamics) 07/12/2023 COVID-19, MRNA-LNP, 24-25, P R, 30MCG/0.3ML, IM, 12YRS AND ABOVE (Convozine-ComirnatEnhanced Surface Dynamics) 06/23/2024 COVID-19, mRNA, LNP-s, PF, B ooster, [...] money to buy more. Never true 09/07/20 Within the past 12 months, t he [...] No 09/07/2023 Does the household have a [facility] source of income? (Household - for ages [...] No 06/10/2021 documented as of this encounter Plan of Treatment Upcoming Encounters Date Type Department Care Team (Late st Contact Info) Description 08/08/2024 11:20 AM EST Office Visit Neurology [facility] [place] [address] [facility] [place] [address] Susan Sheriff MD [address] [facility] [place] [address] 09/09/2024 11:00 AM EST Nurse Only Ancillary Tenisha Reyes [address] [place] [address] Stefan, Nurse [address] [place] [address] 10/08/2024 10:00 AM EST Office Visit Sleep [facility]tr [facility] [address] [facility] [place] [phone] Sarah Byrd CRNP [address] [place] [address] 12/17/2024 11:45 AM EDT Office Visit Urology, [facility] [address] [place] [address] Marlo Prescott MD [address] [place] [address] 01/08/2025 10:00 AM EDT Office Visit Cardiology [address] [place] [address] Isauro King PA-C [address] [place] [address] 01/21/2025 11:00 AM EDT Office Visit Nephrology, [facility] [address] [facility] [place] [address] Shiv Kinney MD [address] [facility] [place] [address] 02/02/2025 6:20 PM EDT Office Visit Family Medicine [address] [place] [phone] MD [address] [place] [address] [place] [address] 02/11/2025 10:00 AM EDT Imaging Radiology [facility] [address] [place] [address] Scheduled Procedures Name Priority Associated Diagnoses Date/Ti [...] this encounter Medical Devices Implanted Type Area Hoisting Pile Driving Engineer Device Identifier Shelf Expiration Date Model / Serial / Lot Lens Intraoc 17.5 - [id number] - [id number] Implanted:Qty : 1 on 03/24/2021 by Tomi Duarte MD at OR [facility] Right: Eye BAUSCH [employer] LOMB 06/23/2025 [id number] / [id number] Lens Intraoc 17.0 - [id number] - [id number] Implanted:Qty : 1 on 03/31/2021 by Tomi Duarte MD at OR [facility] Left: Eye BAUSCH & LOMB 10/24/2025 [id number] / [id number] / Clip Occl Atri Flex V 45mm - [id number] Implanted:Qty : 1 on 06/09/2021 by Lester Lazo MD at [place] [facility] [place] N/A: Heart ATRICURE [id number] 02/23/2024 [id number] / / [id number] Suture Steel 6 B&S19 M654g - [id number] Implanted:Qty : 7 on 06/09/2021 at OR [facility] [place] N/A: Sternum JNJ : [employer] 01/21/2026 M654G / / [id number] documented as of this encounter Procedures Procedure Name Priority Date/Time Associated Diagnosis Comments ECHOCARDIOLOGY SCANNED RESULT 07/03/2024 documented in this encounter Results * ECHOCARDIOLOGY SCANNED RESULT (07/03/2024) 07/03/2024 No Physician Data Unknown ECHOCARDIOLOGY documented in this encounter Advance Directives * Full Code (Latest Code Status on File) Date Activated Date Inactivated Comments 06/09/2021 7:33 PM 06/14/2021 4:55 PM This order r eflects the patients wishes and were consensually agreed upon. Care Teams It Infrastructure Architect Relationship Specialty Start Date End Date Dk Lane MD [address] [place] [address] [place] [phone] PCP - General Family Medicine 09/03/15 documented as of this encounter
[2024-07-08] MEDS: cefTRIAXone SODIUM 2,000 MG/50 ML BAG IV STA (18:57)
[2024-07-08] MEDS: KETOROLAC TROMETHAMINE 15 MG/ML VIAL IV ONE (19:08)
[2024-07-08] MEDS: LIDOCAINE 5% 1 PATCH TD STA (19:09)
[2024-07-08] MEDS: DOXYCYCLINE HYCLATE 100 MG in DEXTROSE 5% MINI-B 100 ML IV STA (19:27)
[2024-07-08 20:13] LABS: Adenovirus PCR Not Detected (NotDetected); Bordetella parapertussis PCR Not Detected (NotDetected); Bordetella pertussis PCR Not Detected (NotDetected); Chlamydia pneumoniae PCR Not Detected (NotDetected); Coronavirus 229E PCR Not Detected (NotDetected); Coronavirus CoV-2 (COVID19)PCR Not Detected (NotDetected); Coronavirus HKU1 PCR Not Detected (NotDetected); Coronavirus NL63 PCR Not Detected (NotDetected); Coronavirus OC43PCR Not Detected (NotDetected); Human Metapneumovirus PCR Not Detected (NotDetected); Influenza A PCR Not Detected (NotDetected); Influenza B PCR Not Detected (NotDetected); Mycoplasma pneumoniae PCR Not Detected (NotDetected); Parainfluenza Virus 1 PCR Not Detected (NotDetected); Parainfluenza Virus 2 PCR Not Detected (NotDetected); Parainfluenza Virus 3 PCR Not Detected (NotDetected); Parainfluenza Virus 4 PCR Not Detected (NotDetected); Respiratory Syncytial VirusPCR Not Detected (NotDetected); Rhinovirus/Enterovirus PCR Not Detected (NotDetected)
[2024-07-08] MEDS ORDERED: FAMOTIDINE 20 MG TAB PO PRN (21:59)
[2024-07-08] MEDS ORDERED: ALUMINUM/MAGNESIUM SUSP 30 ML UDC PO PRN (21:59)
[2024-07-08] MEDS ORDERED: LEVALBUTEROL HCL 0.63 MG/3 ML NEB NEB PRN (21:59)
[2024-07-08] MEDS ORDERED: ONDANSETRON INJ 2 MG/ML 2 ML VIAL IV PRN (21:59)
[2024-07-08] MEDS: APIXABAN 5 MG TABLET PO SCH (22:41)
[2024-07-08] MEDS: ATORVASTATIN 40 MG TAB PO SCH (22:42)
[2024-07-08] MEDS: hydrALAZINE HCL 25 MG TAB PO SCH (22:42)
[2024-07-08] MEDS: MELATONIN 3 MG TAB PO PRN (22:42)
[2024-07-08] MEDS: AMPICILLIN/SULBACTAM SOD 3,000 MG/100 ML BAG IV SCH (22:43)
[2024-07-09] MEDS ORDERED: ACETAMINOPHEN 1,000 MG/100 ML VIAL IV STA (01:56)
[2024-07-09] MEDS: ACETAMINOPHEN 10MG/ML Custom 550 MG in EMPTY BAG 0 ML IV ONE (02:15)
[2024-07-09 06:26] LABS: Basophils # (auto) 0.04 K/uL (0.00-0.20); Basophils % (auto) 0.2 %; Eosinophils # (auto) 0.03 K/uL (0.00-0.50); Eosinophils % (auto) 0.2 %; Hematocrit (blood only) 33.9 % (42.0-52.0); Hemoglobin 11.8 g/dl (14.0-18.0); Immature Granulocytes # (auto) 0.09 K/uL (0.01-0.20); Immature Granulocytes % (auto) 0.5 %; Lymphocytes # (auto) 0.83 K/uL (1.20-3.40); Lymphocytes % (auto) 4.9 %; Mean Corpuscular Hemoglobin 32.9 pg (25.0-34.0); Mean Corpuscular Hgb Conc 34.8 g/dL (32.0-36.0); Mean Corpuscular Volume 94.4 fL (80.0-100.0); Mean Platelet Volume 10.3 fL (9.4-12.4); Monocytes # (auto) 1.71 K/uL (0.11-0.59); Neutrophils # (auto) 14.32 K/uL (1.40-6.50); Neutrophils % (auto) 84.2 %; Platelet Count 147 K/uL (130-400); RDW Standard Deviation 44.8 fL (36.4-46.3); Red Blood Count 3.59 M/uL (4.70-6.10); White Blood Count 17.02 K/ul (4.8-10.8)
[2024-07-09 06:29] LABS: Albumin Globulin Ratio 1.3 (0.9-2); BUN Creatinine Ratio 18.6 (10-20); Bilirubin,Total 1.1 mg/dl (0.2-1.0); Calcium 9.8 mg/dl (8.6-10.3); Creatinine Clr Calc Pharmacy 44.8 ml/min; Potassium 3.6 mmol/L (3.5-5.1)
[2024-07-09] MEDS: oxyCODONE HCL IR 5 MG TAB (IMMEDIATE RELEASE) PO STA ×2 (06:47→11:38)
[2024-07-09] MEDS ORDERED: NON-FORMULARY MEDICATION (Prenatal 168-Iron-Folic-Omega3 [One-A-Day Prenatal-1] 27 mg iron PO SCH (09:00)
[2024-07-09] MEDS ORDERED: NON-FORMULARY MEDICATION (Coenzyme Q10 200 mg capsule) PO SCH (09:00)
[2024-07-09] MEDS: amLODIPine BESYLATE 5 MG TAB PO SCH (10:34)
[2024-07-09] MEDS: DOXYCYCLINE HYCLATE 100 MG CAP PO SCH (10:36)
[2024-07-09] MEDS: ASPIRIN 81 MG ECTAB PO SCH (10:37)
[2024-07-09] MEDS: FUROSEMIDE 40 MG TAB PO SCH (10:38)
[2024-07-09] MEDS: LOSARTAN POTASSIUM 50 MG TAB PO SCH (10:41)
[2024-07-09] MEDS: ADVANCED PROBIOTIC 625 MG CAPSULE PO SCH (10:41)
[2024-07-09] MEDS: METOPROLOL SUCC 25MG EXT REL TAB PO SCH (10:42)
[2024-07-09] MEDS: PANTOprazole 40 MG TAB PO SCH (10:42)
--- NOTE | 2024-07-09 10:48 | Hospitalist Progress Note ---
Date of Service July 09, 2024 Assessment & Plan (1) Pleurisy: (2) Right lower lobe pneumonia: (3) CAD (coronary artery disease): (4) Atrial fibrillation: (5) Hypertension: (6) Hyperlipidemia: Plan This is a 79-year-old male who has significant past medical history of CAD with CABG x 4 ((ANTUNEZ to LAD, SVG to ramus, OM, PDA), radiofrequency atrial ablation, and ligation of the left atrial appendage with a 45 mm Atricure clip by Dr. Lazo), PAF with history of maze procedure, HTN, HLD, prediabetes, mild aortic regurgitation, mild mitral regurgitation, suspected sleep apnea, cerebellar ataxia, chronic bilateral low back pain, autoimmune cerebellar degeneration who presents to the ED secondary to shortness of breath and right flank pain x 1 day. R flank Pain RLQ abdominal Pain Possible Bronchitis interstitial lung disease patient with increased oxygen requirement as well as right flank and lower abdominal pain also with leukocytosis and tachycardic at times respiratory panel negative CT abdomen pelvis with no noted acute findings Chest CT with no acute findings Liver enzymes currently within normal limits except for elevated T. bili, gallbladder ultrasound unremarkable There was a question of pneumonia, possible aspiration. Pulmonology was consulted for further recs -Recommended discontinuing IV Unasyn and continuing with oral doxycycline - advises that findings are not suggestive of pleurisy or pneumonia as a cause of symptoms Incentive spirometry, prn neb, Lidocaine patch As needed oxycodone which provides relief however would not want to suppress respiratory drive As needed Flexeril ordered for possible musculoskeletal cause if pain persists consider repeat imaging of the area continue with p.o. doxycycline Continue to monitor Pulmonary Nodules chest imaging noting the following: "Bibasilar pulmonary nodules measuring up to 9 mm. Correlate with any prior outside imaging studies to assess for stability. If no prior studies are available a 3-4 month follow-up chest CT is recommended for reevaluation and full assessment of the thorax." PCP follow-up on discharge CAD s/p CABG x 4 - no CP, continue asa, eliquis, losartan, hydralazine, repatha PAF with ANAMIKA - rate controlled on metoprolol, continue apixaban HTN: chronic, stable on losartan, hydralazine, lasix, metoprolol, amlodipine HLD: chronic, stable on statin and repatha Pulmonary Nodule: incidental finding on CT, Left lower lobe pulmonary nodule. According to Fleischner criteria, 3 month follow-up CT is recommended. DVT ppx: Eliquis FULL CODE PCP: Ariana Dispo: home once medically stable Admission and Anticipated Discharge Date Admission Date: July 08, 2024 Subjective patient was seen in the morning. Still having right lower abdomen and flank pain. States it is mostly relieved by IV Tylenol as well as p.o. oxycodone Notes he does not use oxygen at home States he is unable to take very deep breaths Review of Systems Review of Systems: All systems reviewed & are unremarkable except as noted in Subjective Physical Exam Physical Exam: General: Alert, oriented. No acute distress Psych: Appropriate mood and affect Neuro: difficulty with movements in the bed HEENT: NC/AT CV: RRR Resp: Breath sounds clear bilaterally, patient unable to take deep breaths Abdomen: Soft, tender in right lower quadrant and right flank Extremities: No edema in lower extremities bilaterally. Results & Data Results & Data Vital Signs (Past 12 Hours) Vital Signs Temp Pulse Pulse Resp BP Pulse Ox O2 Del Method 07/09/24 07:45 83 07/09/24 07:35 37 C 90 18 123/67 96 Nasal Cannula 07/09/24 03:12 37.7 C H 86 20 111/60 96 Nasal Cannula 07/08/24 22:53 Nasal Cannula 07/08/24 22:53 36.4 C L 67 17 119/71 97 Nasal Cannula O2 Flow Rate 07/09/24 07:45 07/09/24 07:35 2 07/09/24 03:12 2 07/08/24 22:53 2 07/08/24 22:53 2 Diagnostic Findings Abdomen/Pelvis CT 07/08/24 13:07 CT SCAN OF THE ABDOMEN AND PELVIS WITHOUT IV CONTRAST CLINICAL HISTORY: Right upper quadrant abdominal pain/right flank pain. COMPARISON STUDY: No priors. TECHNIQUE: CT scan of the abdomen and pelvis is performed from the lung bases to the proximal femora. Images are reviewed in the axial, sagittal, and coronal planes. IV contrast was not administered for this examination. A dose lowering technique was utilized adhering to the principles of ALARA. CT DOSE: 826.04 mGy.cm FINDINGS: Lung bases: The patient is status post midline sternotomy. The heart is enlarged and without pericardial effusion. The coronary arteries are densely calcified. The main pulmonary arteries are dilated suggesting pulmonary artery hypertension. Fibrotic changes seen at both lung bases. Question superimposed airspace opacities at the right lung base. Trace pleural fluid is seen on the right. A 6 mm pleural-based nodule in the right middle lobe along the minor fissure is seen on image #1. A 9 mm left basilar nodule as seen on image #18. There is a small hiatal hernia. Liver: The unenhanced liver is normal in size, contour, and attenuation. There is no intrahepatic biliary ductal dilatation. Gallbladder: Unremarkable. Spleen: Normal in size and attenuation. Pancreas: Unremarkable. Adrenal glands: Unremarkable. Kidneys: The unenhanced kidneys are normal in size and without hydronephrosis. There is a 3 mm nonobstructing right renal calculus. There are at least 5 nonobstructing left renal calculi which measure up to 4 mm. No ureteral stone is seen. Simple and complex renal cysts measuring up to 2.5 cm. Abdominal vasculature: The abdominal aorta is normal in course and caliber noting advanced atherosclerotic calcification. Bowel: There is mild colonic diverticulosis without CT evidence of acute diverticulitis. No bowel obstruction is seen. Mild fecal retention is seen throughout the colon. A duodenal diverticulum is noted. The appendix is well- visualized and normal. Peritoneum: There is no intraperitoneal free air or abdominal ascites. There is a small fat-containing umbilical hernia. Lymphadenopathy: None. Pelvic viscera: The prostate gland is diminutive and heterogeneous. The bladder is mildly distended, and the wall appears thickened/trabeculated indicating chronic outlet obstruction. Skeletal structures: The skeletal structures are osteopenic. There is moderate lumbosacral spondylosis. No lytic or blastic lesions are seen. IMPRESSION: 1. No acute infectious or inflammatory findings are identified in the abdomen or pelvis. 2. Cardiomegaly with fibrotic change seen at both lung bases. 3. Question superimposed airspace consolidation at the right lung base, and there is also trace pleural fluid on the right. Correlate clinically for evidence of a superimposed pneumonia/aspiration pneumonitis. 4. Bibasilar pulmonary nodules measuring up to 9 mm. Correlate with any prior outside imaging studies to assess for stability. If no prior studies are available a 3-4 month follow-up chest CT is recommended for reevaluation and full assessment of the thorax. 5. Bilateral nephrolithiasis. 6. Additional findings as above. ACT 112: Negative or not required by law. Electronically signed by: Ken Palmer M.D. 07/08/2024 1:40 PM Gallbladder Ultrasound 07/08/24 14:32 US gallbladder CLINICAL HISTORY: RUQ pain TECHNIQUE: Multiple real-time sonographic images of the right upper quadrant were obtained. Comparison: Comparison is made to CT abdomen pelvis 07/08/2024 FINDINGS: The liver is diffusely homogenous with normal contour and echogenicity. No focal mass lesions are seen. No intrahepatic ductal dilatation is seen. No gallstones or sludge are identified within the gallbladder. The gallbladder wall is not thickened. There is no pericholecystic fluid present. A sonographic Alvarez's sign was not elicited by the gun repair clerk. The common duct measures 0.5 cm in diameter at the level of the hepatic artery. The visualized portions of the pancreas appear normal. The right kidney shows normal echogenicity, cortical thickness and renal contour. The right kidney shows no evidence of hydronephrosis. A cyst in the upper pole measures 1.5 x 1.6 x 1.3 cm. No ascites or free fluid is seen in Zimmer's pouch. IMPRESSION: Unremarkable right upper quadrant ultrasound. ACT 112: Negative or not required by law. Electronically signed by: Ramsey Fraga M.D. 07/08/2024 3:45 PM Chest CTA 07/08/24 15:47 CT angio chest PE protocol CLINICAL HISTORY: RUQ abd, pleuritic CP ?PE TECHNIQUE: Multidetector row helical CT of the chest was performed with angiographic protocol. Coronal and sagittal reformations were obtained. Coronal and sagittal MIPS were obtained from the axial data set and were submitted for review. Automated dose lowering techniques and/or adjustment according to patient size were utilized for this exam. CT DOSE: 483.27 mGy.cm Comparison: None available at the time of this dictation. FINDINGS: Lungs and pleura: Peripheral interstitial thickening is seen. Right fissural nodule is noted. There is an 8 mm nodule left lower lobe (series 4 image 96). Heart and pericardium: Cardiomegaly is seen with biatrial enlargement. Atrial appendage clip is seen. Vessels: No evidence of pulmonary embolism. Severe atherosclerotic disease is seen. Mediastinum and liz: Unremarkable. Chest wall and lower neck: Unremarkable. Abdomen: A hiatal hernia is seen. Bones: Degenerative changes in the thoracic spine. IMPRESSION: 1. No acute abnormality and in particular no evidence of pulmonary embolus. 2. Left lower lobe pulmonary nodule. According to Fleischner criteria, 3 month follow-up CT is recommended. 3. Interstitial lung disease. ACT 112: Negative or not required by law. Electronically signed by: Ramsey Fraga M.D. 07/08/2024 4:41 PM
[2024-07-09] MEDS: CYANOCOBALAMIN (B-12) 500 MCG TABLET PO SCH (10:55)
[2024-07-09] MEDS: FOLIC ACID 400 MCG TAB PO SCH (10:55)
[2024-07-09] MEDS: CEROVITE ADV FORMULA TAB PO SCH (10:56)
[2024-07-09] MEDS: VITAMIN B COMPLEX TAB PO SCH (10:56)
[2024-07-09] MEDS: MAGNESIUM OXIDE 400 MG TAB PO SCH (10:56)
[2024-07-09] MEDS: POTASSIUM CHLORIDE CRTAB 20 MEQ TABCR PO SCH (10:57)
[2024-07-09] MEDS: ACETAMINOPHEN 325 MG TAB PO PRN (11:18)
--- NOTE | 2024-07-09 11:56 | Pulmonary Consultation ---
Date of Consultation July 09, 2024 Assessment & Plan (1) Acute right flank pain: (2) Interstitial lung disease: Plan Impression: 79-year-old male admitted with right upper quadrant pain and flank pain. CT scan confirms interstitial lung disease of unclear temporal stability. The patient reports being asymptomatic from pulmonary standpoint at baseline. Has been given a diagnosis of pneumonia however he is afebrile with no significant lower respiratory symptoms and a normal procalcitonin. He describes his pain as subcostal anteriorly which is unlikely to be related to pleurisy. Recommendations: 1. I do not see clear evidence of pneumonia on his CT scan. He has a small pleural effusion which is too small to sample at this point in time. Discontinue parenteral antibiotics. Can complete a 5-day course of oral doxycycline. 2. Workup of the patient's flank and right upper quadrant pain deferred to the patient's primary admitting service. Again I am not suspicious that there is a pulmonary etiology. Alternative etiologies would include the renal cysts, GI pathology, nephrolithiasis, etc.. 3. Interstitial lung disease: Incidental finding. The patient reports he gets CT scans performed through [facility] on a regular basis. Correlation with those films would be appropriate. Would recommend outpatient follow-up pulmonary function testing. The patient can establish with [facility] pulmonary in the outpatient setting for long-term follow-up. Patient does not appear to have significant active pulmonary issues currently. Pulmonary will sign off. Disposition per primary service. Feel free to contact us with questions or concerns History of Present Illness Attending Physician: Naty Weems MD History of Present Illness Asked by hospitalist to assist in evaluation management this patient with interstitial lung disease admitted with right upper quadrant and flank pain. History is obtained from discussion with the patient as well as review the electronic medical record. The patient is a 79-year-old male who is followed at [facility]. He states he gets CT scans on a regular basis due to his prior history of coronary artery bypass grafting. This films are not available to review. He developed the acute onset of right upper quadrant right flank pain yesterday which prompted him to seek care in the emergency room. He was initial concern about potential cholecystitis however his LFTs were normal with the exception of a mild elevation in his total bilirubin. Ultrasound of the right upper quadrant was unrevealing. He had a CT of the abdomen performed which revealed bilateral nephrolithiasis with some perinephric stranding. Urinalysis was unrevealing. Bases of the lung demonstrated interstitial lung disease with small pleural effusion. He was given a diagnosis of pneumonia and placed on antibiotics and admitted to the hospitalist and pulmonary was consulted for additional evaluation management. Patient is not had prior pulmonary evaluation conducted. He is never had PFTs. He does not report any shortness of breath associated with this discomfort. He continues to complain of pain which is underneath his rib cage on the right side and worse with deep palpation. He may have somewhat of a pleuritic component. He has not had fevers, chills, or night sweats. No nausea or vomiting. Allergies Allergy/AdvReac Type Severity Reaction Status Date / Time lisinopril Allergy Severe Angioedema Verified 07/01/24 11:22 Home Medications Medication Instructions Recorded Confirmed Type apixaban 5 mg tablet 5 mg PO BID 05/24/21 07/08/24 History atorvastatin 80 mg tablet 40 mg PO PM 05/24/21 07/08/24 History magnesium oxide 500 mg PO DAILY 05/24/21 07/08/24 History potassium chloride 20 mEq 20 meq PO QAM 05/24/21 07/08/24 History tablet,extended release aspirin 81 mg tablet,delayed 81 mg PO QAM 12/16/21 07/08/24 History release (Adult Aspirin Regimen) coenzyme Q10 200 mg capsule 200 mg PO DAILY 12/16/21 07/08/24 History cyanocobalamin (vitamin B-12) 500 500 mcg PO DAILY 12/16/21 07/08/24 History mcg tablet folic acid 0.8 mg capsule 0.8 mg PO DAILY 12/16/21 07/08/24 History furosemide 40 mg tablet 40 mg PO QAM 12/16/21 07/08/24 History losartan 50 mg tablet 100 mg PO QAM 12/16/21 07/08/24 History metoprolol succinate 25 mg 25 mg PO QAM 12/16/21 07/08/24 History tablet,extended release 24 hr nitroglycerin 0.4 mg sublingual 0.4 mg sublingual Q5M PRN Chest 12/16/21 07/08/24 History tablet Pain omeprazole 20 mg capsule,delayed 20 mg PO QAM 12/16/21 07/08/24 History release vit 168-iron 27 mg-folic 1 cap PO QAM 12/16/21 07/08/24 History acid 800 mcg-omega3 235 mg capsule (One-A-Day -1) vit C 250 mg-vit E 90 mg-zinc 40 1 tab PO DAILY 12/16/21 07/08/24 History mg-copper 1 ex-jwjjfl-smjwvh capsule (PreserVision AREDS-2) vitamin B complex (B 1 tab PO DAILY 12/21/21 07/08/24 History Complex-Vitamin B12 tablet) amlodipine 5 mg tablet 5 mg PO QAM 07/01/24 07/08/24 History evolocumab 140 mg/mL subcutaneous 140 mg subcut UD 07/01/24 07/08/24 History pen injector (Elizabeth Brown) hydralazine 25 mg tablet 25 mg PO TID 07/01/24 07/08/24 History Patient History Medical History CAD (coronary artery disease) CABG x 4 (2020) Follows with [facility] Peripheral neuropathy Sleep apnea Home study showed he was having periods of apnea. Formal sleep study recommended (not done yet) Atrial fibrillation Taking Eliquis Hypertension Hyperlipidemia Surgical History Hx of cardiac catheterization (04/2021) 04/2021 > CABG x4 (05/2021) History of tonsillectomy History of inguinal hernia repair x2, right side History of cataract surgery (2020) Bilateral History of cystoscopy History of colonoscopy History of coronary artery bypass graft CABG x4 (2020) Family History Mother Hypertension Father Viral encephalitis Brother Coronary heart disease Other History of coronary artery bypass graft Social History Smoking Status: Former smoker Tobacco Type: Smokeless Tobacco (Dip or Chew) Second Hand Exposure: No; Do You Dip or Chew Tobacco: Yes; Tobacco Cessation Education Requested by Patient: No Hx Alcohol Use: No Hx Substance Use: Yes Last Used Substance: Days (ago) Last Used Substance Othe r:: 07-07-24 Substance Use Type Other:: 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 No additions or deletions Physical Exam Constitutional: WD/WN, vitals as above Neck: trachea midline, no thyromegaly Respiratory: normal respiratory effort, lungs clear to auscultation Cardiovascular: RRR, no murmur, no edema Gastrointestinal (Abdomen): normal bowel sounds, soft, nontender, no hepatosplenomegaly Musculoskeletal: Extremities: extremities normal to inspection Skin: no rashes, warm and dry Neurologic: Nonfocal exam Lymphatic: no cervical lymphadenopathy Results & Data Results & Data Vital Signs (Past 12 Hours) Vital Signs Temp Pulse Pulse Resp BP Pulse Ox O2 Del Method 07/09/24 11:37 37.1 C 95 H 18 143/78 H 95 Nasal Cannula 07/09/24 07:45 83 07/09/24 07:35 37 C 90 18 123/67 96 Nasal Cannula 07/09/24 03:12 37.7 C H 86 20 111/60 96 Nasal Cannula O2 Flow Rate 07/09/24 11:37 2 07/09/24 07:45 07/09/24 07:35 2 07/09/24 03:12 2 Critical Care Results & Data Vital Signs (Past 12 Hours) Vital Signs Temp Pulse Pulse Resp BP Pulse Ox O2 Del Method 07/09/24 11:37 37.1 C 95 H 18 143/78 H 95 Nasal Cannula 07/09/24 07:45 83 07/09/24 07:35 37 C 90 18 123/67 96 Nasal Cannula 07/09/24 03:12 37.7 C H 86 20 111/60 96 Nasal Cannula O2 Flow Rate 07/09/24 11:37 2 07/09/24 07:45 07/09/24 07:35 2 07/09/24 03:12 2 Lab & Micro Results (Past 24 Hours) RBC 3.59 M/uL (4.70-6.10) L 07/09/24 WBC 17.02 K/ul (4.8-10.8) H 07/09/24 Hgb 11.8 g/dl (14.0-18.0) L 07/09/24 Hct 33.9 % (42.0-52.0) L 07/09/24 MCV 94.4 fL (80.0-100.0) 07/09/24 MCH 32.9 pg (25.0-34.0) 07/09/24 MCHC 34.8 g/dL (32.0-36.0) 07/09/24 RDW Standard Deviation 44.8 fL (36.4-46.3) 07/09/24 RDW Coefficient of Variation 13.0 % (11.5-14.5) 07/09/24 Plt Count 147 K/uL (130-400) 07/09/24 MPV 10.3 fL (9.4-12.4) 07/09/24 Neutrophils (%) (Auto) 84.2 % 07/09/24 Lymphocytes (%) (Auto) 4.9 % 07/09/24 Monocytes # (Auto) 1.71 K/uL (0.11-0.59) H 07/09/24 Eosinophils # (Auto) 0.03 K/uL (0.00-0.50) 07/09/24 Immature Granulocyte % (Auto) 0.5 % 07/09/24 Neutrophils # (Auto) 14.32 K/uL (1.40-6.50) H 07/09/24 Lymphocytes # (Auto) 0.83 K/uL (1.20-3.40) L 07/09/24 Monocytes # (Auto) 1.71 K/uL (0.11-0.59) H 07/09/24 Eosinophils # (Auto) 0.03 K/uL (0.00-0.50) 07/09/24 Basophils # (Auto) 0.04 K/uL (0.00-0.20) 07/09/24 Immature Granulocyte # (Auto) 0.09 K/uL (0.01-0.20) 4 Na 139 mmol/L (136-145) 07/09/24 K 3.6 mmol/L (3.5-5.1) 07/09/24 Cl 103 mmol/L (98-107) 07/09/24 CO2 27 mmol/L (21-32) 07/09/24 Anion Gap 9 (3-11) 07/09/24 BUN 13 mg/dl (6-23) 07/09/24 Creatinine 0.70 mg/dl (0.6-1.4) 07/09/24 BUN/Creatinine Ratio 18.6 (10-20) 07/09/24 Glu 108 mg/dl (70-99(Fasting)) H 07/09/24 Ca 9.8 mg/dl (8.6-10.3) 07/09/24 Total Bilirubin 1.1 mg/dl (0.2-1.0) H 07/09/24 AST 17 U/L (13-39) 07/09/24 ALT 13 U/L (7-52) 07/09/24 Alkaline Phosphatase 41 U/L (34-104) 07/09/24 TP 7.0 gm/dl (6.0-8.3) 07/09/24 Albumin 4.0 gm/dl (3.4-5.0) 07/09/24 Globulin 3.0 gm/dl (2.5-4.0) 07/09/24 Albumin/Globulin Ratio 1.3 (0.9-2) 07/09/24 Calcium Level 9.8 mg/dl (8.6-10.3) 07/09/24 05:48 Diagnostic Findings (Past 24 Hours) Abdomen/Pelvis CT 07/08/24 13:07 CT SCAN OF THE ABDOMEN AND PELVIS WITHOUT IV CONTRAST CLINICAL HISTORY: Right upper quadrant abdominal pain/right flank pain. COMPARISON STUDY: No priors. TECHNIQUE: CT scan of the abdomen and pelvis is performed from the lung bases to the proximal femora. Images are reviewed in the axial, sagittal, and coronal planes. IV contrast was not administered for this examination. A dose lowering technique was utilized adhering to the principles of ALARA. CT DOSE: 826.04 mGy.cm FINDINGS: Lung bases: The patient is status post midline sternotomy. The heart is enlarged and without pericardial effusion. The coronary arteries are densely calcified. The main pulmonary arteries are dilated suggesting pulmonary artery hypertension. Fibrotic changes seen at both lung bases. Question superimposed airspace opacities at the right lung base. Trace pleural fluid is seen on the right. A 6 mm pleural-based nodule in the right middle lobe along the minor fissure is seen on image #1. A 9 mm left basilar nodule as seen on image #18. There is a small hiatal hernia. Liver: The unenhanced liver is normal in size, contour, and attenuation. There is no intrahepatic biliary ductal dilatation. Gallbladder: Unremarkable. Spleen: Normal in size and attenuation. Pancreas: Unremarkable. Adrenal glands: Unremarkable. Kidneys: The unenhanced kidneys are normal in size and without hydronephrosis. There is a 3 mm nonobstructing right renal calculus. There are at least 5 nonobstructing left renal calculi which measure up to 4 mm. No ureteral stone is seen. Simple and complex renal cysts measuring up to 2.5 cm. Abdominal vasculature: The abdominal aorta is normal in course and caliber noting advanced atherosclerotic calcification. Bowel: There is mild colonic diverticulosis without CT evidence of acute diverticulitis. No bowel obstruction is seen. Mild fecal retention is seen throughout the colon. A duodenal diverticulum is noted. The appendix is well- visualized and normal. Peritoneum: There is no intraperitoneal free air or abdominal ascites. There is a small fat-containing umbilical hernia. Lymphadenopathy: None. Pelvic viscera: The prostate gland is diminutive and heterogeneous. The bladder is mildly distended, and the wall appears thickened/trabeculated indicating chronic outlet obstruction. Skeletal structures: The skeletal structures are osteopenic. There is moderate lumbosacral spondylosis. No lytic or blastic lesions are seen. IMPRESSION: 1. No acute infectious or inflammatory findings are identified in the abdomen or pelvis. 2. Cardiomegaly with fibrotic change seen at both lung bases. 3. Question superimposed airspace consolidation at the right lung base, and there is also trace pleural fluid on the right. Correlate clinically for evidence of a superimposed pneumonia/aspiration pneumonitis. 4. Bibasilar pulmonary nodules measuring up to 9 mm. Correlate with any prior outside imaging studies to assess for stability. If no prior studies are available a 3-4 month follow-up chest CT is recommended for reevaluation and full assessment of the thorax. 5. Bilateral nephrolithiasis. 6. Additional findings as above. ACT 112: Negative or not required by law. Electronically signed by: Ken Palmer M.D. 07/08/2024 1:40 PM Gallbladder Ultrasound 07/08/24 14:32 US gallbladder CLINICAL HISTORY: RUQ pain TECHNIQUE: Multiple real-time sonographic images of the right upper quadrant were obtained. Comparison: Comparison is made to CT abdomen pelvis 07/08/2024 FINDINGS: The liver is diffusely homogenous with normal contour and echogenicity. No focal mass lesions are seen. No intrahepatic ductal dilatation is seen. No gallstones or sludge are identified within the gallbladder. The gallbladder wall is not thickened. There is no pericholecystic fluid present. A sonographic Alvarez's sign was not elicited by the health careers instructor. The common duct measures 0.5 cm in diameter at the level of the hepatic artery. The visualized portions of the pancreas appear normal. The right kidney shows normal echogenicity, cortical thickness and renal contour. The right kidney shows no evidence of hydronephrosis. A cyst in the upper pole measures 1.5 x 1.6 x 1.3 cm. No ascites or free fluid is seen in Zimmer's pouch. IMPRESSION: Unremarkable right upper quadrant ultrasound. ACT 112: Negative or not required by law. Electronically signed by: Ramsey Fraga M.D. 07/08/2024 3:45 PM Chest CTA 07/08/24 15:47 CT angio chest PE protocol CLINICAL HISTORY: RUQ abd, pleuritic CP ?PE TECHNIQUE: Multidetector row helical CT of the chest was performed with angiographic protocol. Coronal and sagittal reformations were obtained. Coronal and sagittal MIPS were obtained from the axial data set and were submitted for review. Automated dose lowering techniques and/or adjustment according to patient size were utilized for this exam. CT DOSE: 483.27 mGy.cm Comparison: None available at the time of this dictation. FINDINGS: Lungs and pleura: Peripheral interstitial thickening is seen. Right fissural nodule is noted. There is an 8 mm nodule left lower lobe (series 4 image 96). Heart and pericardium: Cardiomegaly is seen with biatrial enlargement. Atrial appendage clip is seen. Vessels: No evidence of pulmonary embolism. Severe atherosclerotic disease is seen. Mediastinum and liz: Unremarkable. Chest wall and lower neck: Unremarkable. Abdomen: A hiatal hernia is seen. Bones: Degenerative changes in the thoracic spine. IMPRESSION: 1. No acute abnormality and in particular no evidence of pulmonary embolus. 2. Left lower lobe pulmonary nodule. According to Fleischner criteria, 3 month follow-up CT is recommended. 3. Interstitial lung disease. ACT 112: Negative or not required by law. Electronically signed by: Ramsey Fraga M.D. 07/08/2024 4:41 PM I & O Totals 24 Hours 07/08/24 07/09/24 07/10/24 06:59 06:59 06:59 Intake Total 945 / 945 100 / 100 Balance 945 / 945 100 / 100 Cumulative 07/08/24 11:10 thru 07/09/24 11:22 Intake Total 1045 Balance 1045 RT Ventilator Mngmt (Last Documented) Ventilator Ordered Settings Respiratory Rate 18 07/09/24 11:37 Ventilator - PT Measurements Respiratory Rate 18 PG Care Time/CCT Total # of Minutes Spent Total Time Spent with Patient: Total time spent is greater than 50% in coordination of care (as documented) at patient's floor/unit and/or counseling patient: Coding Level of Care Code 37813 INT INP/OBS CARE 3/75MIN Diagnoses Acute right flank pain R10.9 Interstitial lung disease J84.9
[2024-07-09] MEDS ORDERED: ACETAMINOPHEN 1,000 MG/100 ML VIAL IV SCH (16:30)
[2024-07-09] MEDS: ACETAMINOPHEN 500 MG TAB PO SCH (18:09)
[2024-07-09] MEDS: CYCLOBENZAPRINE HCL 5 MG TAB PO PRN (20:30)
[2024-07-10 06:50] LABS: Basophils # (auto) 0.04 K/uL (0.00-0.20); Basophils % (auto) 0.3 %; Hematocrit (blood only) 34.3 % (42.0-52.0); Hemoglobin 11.5 g/dl (14.0-18.0); Immature Granulocytes # (auto) 0.06 K/uL (0.01-0.20); Immature Granulocytes % (auto) 0.4 %; Lymphocytes # (auto) 1.19 K/uL (1.20-3.40); Mean Corpuscular Hemoglobin 32.5 pg (25.0-34.0); Mean Corpuscular Hgb Conc 33.5 g/dL (32.0-36.0); Mean Corpuscular Volume 96.9 fL (80.0-100.0); Mean Platelet Volume 10.2 fL (9.4-12.4); Monocytes # (auto) 1.46 K/uL (0.11-0.59); Monocytes % (auto) 9.8 %; Neutrophils # (auto) 11.78 K/uL (1.40-6.50); Neutrophils % (auto) 79.5 %; Platelet Count 152 K/uL (130-400); RDW Standard Deviation 46.7 fL (36.4-46.3); Red Blood Count 3.54 M/uL (4.70-6.10); White Blood Count 14.83 K/ul (4.8-10.8)
[2024-07-10 07:15] LABS: Albumin Globulin Ratio 1.2 (0.9-2); Albumin Level 3.7 gm/dl (3.4-5.0); BUN Creatinine Ratio 26.7 (10-20); Bilirubin,Total 1.1 mg/dl (0.2-1.0); Creatinine Clr Calc Pharmacy 78.5 ml/min; Globulin 3.2 gm/dl (2.5-4.0); Magnesium 1.8 mg/dl (1.7-2.4); Phosphorus 2.9 mg/dl (2.5-4.9); Total Protein 6.9 gm/dl (6.0-8.3)
--- NOTE | 2024-07-10 08:09 | Pulmonology Progress Note ---
Date of Service July 10, 2024 Assessment & Plan (1) Acute right flank pain: (2) Interstitial lung disease: Plan Impression: 79-year-old male admitted with right upper quadrant pain and flank pain. He had incidental finding of interstitial lung disease. Etiology of his abdominal pain is unclear. Please refer to prior notes and hospitalist notes. He is being treated for bronchitis. Recommendations: 1. Bronchitis: Can complete a 5-day course of oral doxycycline. 2. Right upper quadrant pain-resolved: Management per primary admitting service 3. Interstitial lung disease: Incidental finding. The patient reports he gets CT scans performed through [facility] on a regular basis. Correlation with those films would be appropriate. Would recommend outpatient follow-up pulmonary function testing. The patient can establish with [facility] pulmonary in the outpatient setting for long-term follow-up. 4. Pulmonary nodule: The patient reports multiple prior CT scans performed through the [facility] system. Correlation with prior imaging will be required. If the nodule is demonstrated greater than 12 months of stability, no additional radiographic follow-up is needed. If the nodule is new, consideration for a follow-up CT scan in 3 months might be appropriate Patient does not appear to have significant active pulmonary issues currently. Pulmonary will sign off. Disposition per primary service. Feel free to contact us with questions or concerns Admission and Anticipated Discharge Date Admission Date: July 08, 2024 Subjective Patient seen and examined. EMR reviewed. He feels better this morning. He continues to cough and expectorate some white to yellow phlegm. He is not had any hemoptysis. No fevers or chills overnight. His pain is also significantly improved. He is not experiencing any nausea or vomiting. No diarrhea or loose stools. No melena hematochezia or hematemesis. He has been ambulatory and feels markedly better than when he came into the hospital Review of Systems 2 Review of Systems: All systems reviewed & are unremarkable except as noted in Subjective Physical Exam 2 Constitutional: WD/WN, vitals as above Neck: trachea midline, no thyromegaly Respiratory: normal respiratory effort, lungs clear to auscultation Cardiovascular: RRR, no murmur, no edema Gastrointestinal (Abdomen): normal bowel sounds, soft, nontender, no hepatosplenomegaly Musculoskeletal: Extremities: extremities normal to inspection Skin: no rashes, warm and dry Lymphatic: no cervical lymphadenopathy Results & Data Results & Data Vital Signs (Past 12 Hours) Vital Signs Temp Pulse Pulse Resp BP Pulse Ox O2 Del Method 07/10/24 07:39 77 07/10/24 07:29 37.5 C 87 16 111/69 90 Room Air 07/10/24 03:19 37.2 C 84 20 101/49 L 92 Room Air 07/09/24 23:38 37.3 C 80 20 108/63 92 Room Air 07/09/24 21:55 84 07/09/24 21:08 Room Air Laboratory Results 07/10/24 06:03 07/10/24 06:03 Diagnostic Findings No new imaging PG Care Time/CCT Total # of Minutes Spent Total Time Spent with Patient: Total time spent is greater than 50% in coordination of care (as documented) at patient's floor/unit and/or counseling patient: Coding Level of Care Code 19246 SUB INP/OBS CARE 2/35MIN Diagnoses Acute right flank pain R10.9 Interstitial lung disease J84.9
[2024-07-10] MEDS: POLYETHYLENE (MIRALAX) 17 GM PACK PO PRN (08:59)
--- NOTE | 2024-07-10 13:22 | CT Scan Report ---
CT OF THE CHEST WITHOUT IV CONTRAST CLINICAL HISTORY: Chest pain. COMPARISON STUDY: Chest CT July 08, 2024. CT DOSE: 388.11 mGy.cm TECHNIQUE: Axial images of the chest were obtained without IV contrast. Images were reviewed in the axial, sagittal, and coronal planes. IV contrast was not administered for this examination. Automat ed exposure control was utilized for the study. A dose lowering technique was utilized adhering to t he principles of ALARA. FINDINGS: Prominent right hilar lymph nodes are better depicted on contrast enhanced CT of June 242023. There are median sternotomy wires, postoperative findings from bypass grafting and a left at rial appendage occluder device. The heart is moderately enlarged. There is no pericardial effusion. S mall right pleural effusion has increased in size since prior exam. Right lower lobe airspace opacity with volume loss has increased. Subpleural reticulation is again noted. There is no pneumothorax. Ce ntral airways are patent. A 6 mm subpleural left lower lobe nodule on image 140 of 229 is again noted . There are no acute fractures within the bony thorax. IMPRESSION: 1. Increase in size of a small right pleural effusion with associated fissural fluid. 2. Increase in right lower lobe airspace opacity with slight loss. This favors atelectasis although p neumonia could appear similar. 3. Moderate cardiomegaly. 4. 6 mm subpleural left lower lobe nodule. A chest CT in 6 months to ensure stability is recommended. 5. Subpleural reticulation consistent with interstitial lung disease. ACT 112: Negative or not required by law. Electronically signed by: Donnie Biswas M.D. 07/10/2024 1:21 PM
--- NOTE | 2024-07-10 15:50 | Urology Consultation ---
Date of Consultation July 10, 2024 Assessment & Plan (1) Acute right flank pain: We reviewed his right flank pain. This may have been passing a stone, however he had a completely negative urinalysis and CT scan did not identify any hydronephrosis. Since he is not having any flank pain at this point, would continue to monitor. If flank pain recurs, could consider reimaging to see if he is passing a stone. (2) Nephrolithiasis: We reviewed the stones in his kidney that they are nonobstructing. For now, I would recommend we continue to monitor while he is hospitalized for other issues. We briefly discussed that there are surgical options such as shockwave lithotripsy or ureteroscopy and laser lithotripsy to remove stones. We will discuss these options further as an outpatient. Plan No plan for acute urologic intervention at this point. Would continue to monitor urine output. We will coordinate outpatient follow-up. Urology will sign off for now. Please call with any questions or concerns. History of Present Illness Reason for Consultation: Flank pain, nephrolithiasis Attending Physician: Naty Weems MD History of Present Illness This is a 79-year-old male who presented to the emergency department on 07/08/2024 with acute onset of right-sided flank pain which was associated with deep breaths and pressure in the right upper quadrant. Of note, in the days leading up to his presentation, he had undergone a transesophageal echocardiogram. In the emergency department, he was requiring supplemental oxygen. Workup at that time was notable for mild leukocytosis (11.44, increased to 17.02 on 07/09/2024). His creatinine on presentation was normal at 0.61. Urinalysis was negative. He underwent a CT scan of the abdomen and pelvis on 07/08/2024. I independently reviewed these images. These were limited by lack of contrast for full evaluation of his kidneys. There is a punctate stone that does not appear to be obstructing on the right side. On the left he has small scattered calcifications which may represent stones or possible phleboliths. There are hypodense areas on the left kidney suspicious for cysts. I do not appreciate any hydronephrosis or ureteral stones bilaterally. Bladder is fairly distended. Radiology made note of possible airspace consolidation at the right lung base. Urology was consulted regarding his flank pain and kidney stones. At the bedside today, he reports that the flank pain has essentially resolved. He denies any prior history of stones or urologic intervention. Allergies Allergy/AdvReac Type Severity Reaction Status Date / Time lisinopril Allergy Severe Angioedema Verified 07/01/24 11:22 Home Medications Medication Instructions Recorded Confirmed Type apixaban 5 mg tablet 5 mg PO BID 05/24/21 07/08/24 History atorvastatin 80 mg tablet 40 mg PO PM 05/24/21 07/08/24 History magnesium oxide 500 mg PO DAILY 05/24/21 07/08/24 History potassium chloride 20 mEq 20 meq PO QAM 05/24/21 07/08/24 History tablet,extended release aspirin 81 mg tablet,delayed 81 mg PO QAM 12/16/21 07/08/24 History release (Adult Aspirin Regimen) coenzyme Q10 200 mg capsule 200 mg PO DAILY 12/16/21 07/08/24 History cyanocobalamin (vitamin B-12) 500 500 mcg PO DAILY 12/16/21 07/08/24 History mcg tablet folic acid 0.8 mg capsule 0.8 mg PO DAILY 12/16/21 07/08/24 History furosemide 40 mg tablet 40 mg PO QAM 12/16/21 07/08/24 History losartan 50 mg tablet 100 mg PO QAM 12/16/21 07/08/24 History metoprolol succinate 25 mg 25 mg PO QAM 12/16/21 07/08/24 History tablet,extended release 24 hr nitroglycerin 0.4 mg sublingual 0.4 mg sublingual Q5M PRN Chest 12/16/21 07/08/24 History tablet Pain omeprazole 20 mg capsule,delayed 20 mg PO QAM 12/16/21 07/08/24 History release vit 168-iron 27 mg-folic 1 cap PO QAM 12/16/21 07/08/24 History acid 800 mcg-omega3 235 mg capsule (One-A-Day -1) vit C 250 mg-vit E 90 mg-zinc 40 1 tab PO DAILY 12/16/21 07/08/24 History mg-copper 1 [id number] capsule (PreserVision AREDS-2) vitamin B complex (B 1 tab PO DAILY 12/21/21 07/08/24 History Complex-Vitamin B12 tablet) amlodipine 5 mg tablet 5 mg PO QAM 07/01/24 07/08/24 History evolocumab 140 mg/mL subcutaneous 140 mg subcut UD 07/01/24 07/08/24 History pen injector (Elizabeth Brown) hydralazine 25 mg tablet 25 mg PO TID 07/01/24 07/08/24 History Patient History Medical History CAD (coronary artery disease) CABG x 4 (2020) Follows with [facility] Peripheral neuropathy Sleep apnea Home study showed he was having periods of apnea. Formal sleep study recommended (not done yet) Atrial fibrillation Taking Eliquis Hypertension Hyperlipidemia Surgical History Hx of cardiac catheterization (04/2021) 04/2021 > CABG x4 (05/2021) History of tonsillectomy History of inguinal hernia repair x2, right side History of cataract surgery (2020) Bilateral History of cystoscopy History of colonoscopy History of coronary artery bypass graft CABG x4 (2020) Family History Mother Hypertension Father Viral encephalitis Brother Coronary heart disease Other History of coronary artery bypass graft Social History Smoking Status: Former smoker Tobacco Type: Smokeless Tobacco (Dip or Chew) Second Hand Exposure: No; Do You Dip or Chew Tobacco: Yes; Tobacco Cessation Education Requested by Patient: No Hx Alcohol Use: No Hx Substance Use: Yes Last Used Substance: Days (ago) Last Used Substance Other:: 07-07-24 Substance Use Type Other:: 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 Physical Exam Constitutional: well developed and well nourished; no acute distress Eyes: + anicteric sclerae; pupils not irregula r Respiratory: normal respiratory effort; no respiratory distress, does not use accessory muscles and no cough Cardiovascular: well perfused Gastrointestinal (Abdomen): Inspection/Auscultation: abdomen normal to inspection; abdomen not distended Musculoskeletal: Extremities: extremities normal to inspection Skin: normal turgor; no rashes and no lesions Neurologic: moves all extremities and awake Psychiatric: Orientation: alert and oriented x 3 Results & Data Vital Signs (Past 12 Hours) Vital Signs Temp Pulse Pulse Resp BP Pulse Ox O2 Del Method 07/10/24 15:08 37.2 C 93 H 18 94/56 L 91 Room Air 07/10/24 11:41 113/63 07/10/24 11:19 37.3 C 88 16 93/55 L 91 Room Air 07/10/24 10:00 Room Air, Nasal Cannula 07/10/24 07:39 77 07/10/24 07:29 37.5 C 87 16 111/69 90 Room Air O2 Flow Rate 07/10/24 15:08 07/10/24 11:41 07/10/24 11:19 07/10/24 10:00 2 07/10/24 07:39 07/10/24 07:29 PG Care Time/CCT Total # of Minutes Spent Total Time Spent with Patient: Total time spent is greater than 50% in coordination of care (as documented) at patient's floor/unit and/or counseling patient: Coding Level of Care Code 45245 INT INP/OBS CARE 2/55MIN Diagnoses Acute right flank pain R10.9 Nephrolithiasis N20.0
--- NOTE | 2024-07-10 17:41 | Hospitalist Progress Note ---
Date of Service July 10, 2024 Assessment & Plan (1) Pleurisy: (2) Right lower lobe pneumonia: (3) CAD (coronary artery disease): (4) Atrial fibrillation: (5) Hypertension: (6) Hyperlipidemia: Plan This is a 79-year-old male who has significant past medical history of CAD with CABG x 4 ((ANTUNEZ to LAD, SVG to ramus, OM, PDA), radiofrequency atrial ablation, and ligation of the left atrial appendage with a 45 mm Atricure clip by Dr. Lazo), PAF with history of maze procedure, HTN, HLD, prediabetes, mild aortic regurgitation, mild mitral regurgitation, suspected sleep apnea, cerebellar ataxia, chronic bilateral low back pain, autoimmune cerebellar degeneration who presents to the ED secondary to shortness of breath and right flank pain x 1 day. R flank Pain RLQ abdominal Pain Possible Bronchitis interstitial lung disease patient with increased oxygen requirement as well as right flank and lower abdominal pain also with leukocytosis and tachycardic at times respiratory panel negative CT abdomen pelvis with no noted acute findings Chest CT with no acute findings Repeat chest CT on 07/10/2024 noting increasing right-sided pleural effusion. Liver enzymes currently within normal limits except for elevated T. bili, gallbladder ultrasound unremarkable There was a question of pneumonia, possible aspiration with recent FERNIE. Pulmonology was consulted for further recs -Recommended discontinuing IV Unasyn and continuing with oral doxycycline - advises that findings are not suggestive of pleurisy or pneumonia as a cause of symptoms Incentive spirometry, prn neb, Lidocaine patch As needed oxycodone which provides relief however would not want to suppress respiratory drive As needed Flexeril ordered for possible musculoskeletal cause- has been helping if pain persists consider repeat imaging of the area continue with p.o. doxycycline Urology also consulted given location of pain and noted nonobstructive kidney stones on CT. Appreciate recs Continue to monitor CAD s/p CABG x 4 PAF with ANAMIKA Hyperlipidemia rate controlled on metoprolol, continue apixaban no CP, continue asa, losartan, hydralazine, repatha patient with history of congestive heart failure -07/10/24 Episode of right-sided chest pain. Pending EKG, Trop, repeat echo. Repeat chest CT noting increase in right-sided pleural effusion. Likely cause of right-sided chest pain and right abdomen or flank pain - cardiology consulted given findings above, appreciate recs HTN: chronic, stable on losartan, hydralazine, lasix, metoprolol, amlodipine Pulmonary Nodules chest imaging noting the following: "Bibasilar pulmonary nodules measuring up to 9 mm. Correlate with any prior outside imaging studies to assess for stability. If no prior studies are available a 3-4 month follow-up chest CT is recommended for reevaluation and full assessment of the thorax." According to Fleischner criteria, 3 month follow-up CT is recommended. PCP follow-up on discharge DVT ppx: Malcolm FULL CODE PCP: Ariana Dispo: PT/OT ordered for further recs Admission and Anticipated Discharge Date Admission Date: July 08, 2024 Subjective patient was seen multiple times during the day Initially with at bedside. Has been trying to have bowel movements Noting episode of chest pain, states its right-sided denies any associated shortness of breath but does note that it hurts to take a deep breath States that the right flank pain has improved especially with use of the as needed Flexeril Review of Systems Review of Systems: All systems reviewed & are unremarkable except as noted in Subjective Physical Exam Physical Exam: General: Alert, oriented. No acute distress Psych: Appropriate mood and affect Neuro: difficulty with movements in the bed HEENT: NC/AT CV: RRR Resp: Breath sounds clear bilaterally, patient unable to take deep breaths Abdomen: Soft, no longer tender in right lower quadrant and right flank Extremities: No edema in lower extremities bilaterally. Results & Data Results & Data Vital Signs (Past 12 Hours) Vital Signs Temp Pulse Pulse Resp BP Pulse Ox O2 Del Method 07/10/24 11:41 113/63 07/10/24 11:19 37.3 C 88 16 93/55 L 91 Room Air 07/10/24 10:00 Room Air, Nasal Cannula 07/10/24 07:39 77 07/10/24 07:29 37.5 C 87 16 111/69 90 Room Air 07/10/24 03:19 37.2 C 84 20 101/49 L 92 Room Air O2 Flow Rate 07/10/24 11:41 07/10/24 11:19 07/10/24 10:00 2 07/10/24 07:39 07/10/24 07:29 07/10/24 03:19 Diagnostic Findings Abdomen/Pelvis CT 07/08/24 13:07 CT SCAN OF THE ABDOMEN AND PELVIS WITHOUT IV CONTRAST CLINICAL HISTORY: Right upper quadrant abdominal pain/right flank pain. COMPARISON STUDY: No priors. TECHNIQUE: CT scan of the abdomen and pelvis is performed from the lung bases to the proximal femora. Images are reviewed in the axial, sagittal, and coronal planes. IV contrast was not administered for this examination. A dose lowering technique was utilized adhering to the principles of ALARA. CT DOSE: 826.04 mGy.cm FINDINGS: Lung bases: The patient is status post midline sternotomy. The heart is enlarged and without pericardial effusion. The coronary arteries are densely calcified. The main pulmonary arteries are dilated suggesting pulmonary artery hypertension. Fibrotic changes seen at both lung bases. Question superimposed airspace opacities at the right lung base. Trace pleural fluid is seen on the right. A 6 mm pleural-based nodule in the right middle lobe along the minor fissure is seen on image #1. A 9 mm left basilar nodule as seen on image #18. There is a small hiatal hernia. Liver: The unenhanced liver is normal in size, contour, and attenuation. There is no intrahepatic biliary ductal dilatation. Gallbladder: Unremarkable. Spleen: Normal in size and attenuation. Pancreas: Unremarkable. Adrenal glands: Unremarkable. Kidneys: The unenhanced kidneys are normal in size and without hydronephrosis. There is a 3 mm nonobstructing right renal calculus. There are at least 5 nonobstructing left renal calculi which measure up to 4 mm. No ureteral stone is seen. Simple and complex renal cysts measuring up to 2.5 cm. Abdominal vasculature: The abdominal aorta is normal in course and caliber noting advanced atherosclerotic calcification. Bowel: There is mild colonic diverticulosis without CT evidence of acute diverticulitis. No bowel obstruction is seen. Mild fecal retention is seen throughout the colon. A duodenal diverticulum is noted. The appendix is well- visualized and normal. Peritoneum: There is no intraperitoneal free air or abdominal ascites. There is a small fat-containing umbilical hernia. Lymphadenopathy: None. Pelvic viscera: The prostate gland is diminutive and heterogeneous. The bladder is mildly distended, and the wall appears thickened/trabeculated indicating chronic outlet obstruction. Skeletal structures: The skeletal structures are osteopenic. There is moderate lumbosacral spondylosis. No lytic or blastic lesions are seen. IMPRESSION: 1. No acute infectious or inflammatory findings are identified in the abdomen or pelvis. 2. Cardiomegaly with fibrotic change seen at both lung bases. 3. Question superimposed airspace consolidation at the right lung base, and there is also trace pleural fluid on the right. Correlate clinically for evidence of a superimposed pneumonia/aspiration pneumonitis. 4. Bibasilar pulmonary nodules measuring up to 9 mm. Correlate with any prior outside imaging studies to assess for stability. If no prior studies are available a 3-4 month follow-up chest CT is recommended for reevaluation and full assessment of the thorax. 5. Bilateral nephrolithiasis. 6. Additional findings as above. ACT 112: Negative or not required by law. Electronically signed by: Ken Palmer M.D. 07/08/2024 1:40 PM Gallbladder Ultrasound 07/08/24 14:32 US gallbladder CLINICAL HISTORY: RUQ pain TECHNIQUE: Multiple real-time sonographic images of the right upper quadrant were obtained. Comparison: Comparison is made to CT abdomen pelvis 07/08/2024 FINDINGS: The liver is diffusely homogenous with normal contour and echogenicity. No focal mass lesions are seen. No intrahepatic ductal dilatation is seen. No gallstones or sludge are identified within the gallbladder. The gallbladder wall is not thickened. There is no pericholecystic fluid present. A sonographic Alvarez's sign was not elicited by the baby nurse. The common duct measures 0.5 cm in diameter at the level of the hepatic artery. The visualized portions of the pancreas appear normal. The right kidney shows normal echogenicity, cortical thickness and renal contour. The right kidney shows no evidence of hydronephrosis. A cyst in the upper pole measures 1.5 x 1.6 x 1.3 cm. No ascites or free fluid is seen in Zimmer's pouch. IMPRESSION: Unremarkable right upper quadrant ultrasound. ACT 112: Negative or not required by law. Electronically signed by: Ramsey Fraga M.D. 07/08/2024 3:45 PM Chest CTA 07/08/24 15:47 CT angio chest PE protocol CLINICAL HISTORY: RUQ abd, pleuritic CP ?PE TECHNIQUE: Multidetector row helical CT of the chest was performed with angiographic protocol. Coronal and sagittal reformations were obtained. Coronal and sagittal MIPS were obtained from the axial data set and were submitted for review. Automated dose lowering techniques and/or adjustment according to patient size were utilized for this exam. CT DOSE: 483.27 mGy.cm Comparison: None available at the time of this dictation. FINDINGS: Lungs and pleura: Peripheral interstitial thickening is seen. Right fissural nodule is noted. There is an 8 mm nodule left lower lobe (series 4 image 96). Heart and pericardium: Cardiomegaly is seen with biatrial enlargement. Atrial appendage clip is seen. Vessels: No evidence of pulmonary embolism. Severe atherosclerotic disease is seen. Mediastinum and liz: Unremarkable. Chest wall and lower neck: Unremarkable. Abdomen: A hiatal hernia is seen. Bones: Degenerative changes in the thoracic spine. IMPRESSION: 1. No acute abnormality and in particular no evidence of pulmonary embolus. 2. Left lower lobe pulmonary nodule. According to Fleischner criteria, 3 month follow-up CT is recommended. 3. Interstitial lung disease. ACT 112: Negative or not required by law. Electronically signed by: Ramsey Fraga M.D. 07/08/2024 4:[address] 07/10/24 11:52 CT OF THE CHEST WITHOUT IV CONTRAST CLINICAL HISTORY: Chest pain. COMPARISON STUDY: Chest CT July 08, 2024. CT DOSE: 388.11 mGy.cm TECHNIQUE: Axial images of the chest were obtained without IV contrast. Images were reviewed in the axial, sagittal, and coronal planes. IV contrast was not administered for this examination. Automated exposure control was utilized for the study. A dose lowering technique was utilized adhering to the principles of ALARA. FINDINGS: Prominent right hilar lymph nodes are better depicted on contrast enhanced CT of July 08, 2024. There are median sternotomy wires, postoperative findings from bypass grafting and a left atrial appendage occluder device. The heart is moderately enlarged. There is no pericardial effusion. Small right pleural effusion has increased in size since prior exam. Right lower lobe airspace opacity with volume loss has increased. Subpleural reticulation is again noted. There is no pneumothorax. Central airways are patent. A 6 mm subpleural left lower lobe nodule on image 140 of 229 is again noted. There are no acute fractures within the bony thorax. IMPRESSION: 1. Increase in size of a small right pleural effusion with associated fissural fluid. 2. Increase in right lower lobe airspace opacity with slight loss. This favors atelectasis although pneumonia could appear similar. 3. Moderate cardiomegaly. 4. 6 mm subpleural left lower lobe nodule. A chest CT in 6 months to ensure stability is recommended. 5. Subpleural reticulation consistent with interstitial lung disease. ACT 112: Negative or not required by law. Electronically signed by: Donnie Biswas M.D. 07/10/2024 1:21 PM
[2024-07-11] MEDS ORDERED: oxyCODONE HCL IR 5 MG TAB (IMMEDIATE RELEASE) PO PRN (01:07)
[2024-07-11 06:55] LABS: Basophils # (auto) 0.03 K/uL (0.00-0.20); Basophils % (auto) 0.3 %; Eosinophils # (auto) 0.41 K/uL (0.00-0.50); Eosinophils % (auto) 3.5 %; Hematocrit (blood only) 33.6 % (42.0-52.0); Hemoglobin 11.3 g/dl (14.0-18.0); Immature Granulocytes # (auto) 0.08 K/uL (0.01-0.20); Immature Granulocytes % (auto) 0.7 %; Lymphocytes % (auto) 7.7 %; Mean Corpuscular Hemoglobin 32.6 pg (25.0-34.0); Mean Corpuscular Hgb Conc 33.6 g/dL (32.0-36.0); Mean Corpuscular Volume 96.8 fL (80.0-100.0); Monocytes # (auto) 1.38 K/uL (0.11-0.59); Monocytes % (auto) 11.8 %; Neutrophils # (auto) 8.85 K/uL (1.40-6.50); Platelet Count 169 K/uL (130-400); RDW Coefficient of Variation 12.9 % (11.5-14.5); RDW Standard Deviation 46.1 fL (36.4-46.3); Red Blood Count 3.47 M/uL (4.70-6.10); White Blood Count 11.65 K/ul (4.8-10.8)
[2024-07-11 07:17] LABS: Albumin Globulin Ratio 1.1 (0.9-2); Albumin Level 3.6 gm/dl (3.4-5.0); BUN Creatinine Ratio 32.8 (10-20); Calcium 9.9 mg/dl (8.6-10.3); Globulin 3.2 gm/dl (2.5-4.0); Magnesium 1.8 mg/dl (1.7-2.4); Phosphorus 2.5 mg/dl (2.5-4.9); Potassium 3.8 mmol/L (3.5-5.1); Total Protein 6.8 gm/dl (6.0-8.3)
--- NOTE | 2024-07-11 07:50 | Electrocardiogram Report ---
Test Reason : Blood Pressure : */* mmHG Vent. Rate : 87 BPM Atrial Rate : 75 BPM P-R Int : * ms QRS Dur : 88 ms QT Int : 348 ms P-R-T Axes : * 60 50 degrees QTcB Int : 418 ms Atrial fibrillation Abnormal ECG When compared with ECG of 08-Jul-2024 12:37, No significant change was found Confirmed by Raman Dwyer ([id number]) on 07/11/2024 7:49:56 AM Referred By: REFERRED SELF Confirmed By: Raman Dwyer
--- NOTE | 2024-07-11 08:43 | Cardiology Consultation ---
Date of Consultation July 11, 2024 Assessment & Plan (1) Right lower lobe pneumonia: (2) Pleurisy: (3) Permanent atrial fibrillation: Plan 79-year-old male admitted with right-sided flank pain and x-ray evidence of possible right lower lobe infiltrate with small pleural effusion. Concerns regarding right lower lobe pneumonia and/or aspiration related to recent transesophageal echocardiogram. No plans for thoracentesis currently. Continue antibiotic treatment as per internal medicine and pulmonology. Telemetry reveals rate controlled atrial fibrillation. Although his recent transesophageal echocardiogram demonstrated adequate occlusion of the left atrial appendage, there were concerns regarding presence of Lambl's excrescence. Oral anticoagulation continued. No medication changes or further cardiac testing recommended at this time. Routine outpatient cardiology follow-up as scheduled. Thank you for allowing me to participate in the care of your patient. History of Present Illness Reason for Consultation: CHF, Right sided pleural effusion, right sided CP Requesting Physician: Dr. Weems Attending Physician: Naty Weems MD History of Present Illness 79-year-old male presented to the emergency department with acute right-sided flank pain. Initially, x-ray with evidence of possible right lower lobe pneumonia and small right-sided pleural effusion. Patient recently underwent transesophageal echocardiogram 07/03/2024 for evaluation of left atrial appendage clip. The transesophageal echocardiogram demonstrated appropriate, adequate closure of the left atrial appendage.Lambl's excrescences noted. Feeling better since admission. Notes mild, right sided abdominal and flank discomfort. Also notes a mild right-sided pleuritic discomfort with deep inspiration and cough. No sputum production. Denies orthopnea, PND, or lower extremity edema. No recurrent abdominal discomfort. Denies nausea, vomiting, or diarrhea. No left-sided chest discomfort Cardiac history: 1. Longstanding hypertension. 2. Preoperative EKG prior to cataract extraction in early March 2021 revealed new onset asymptomatic atrial fibrillation with a rapid ventricular response. 3. [id number] Score 4 points. 4. Multivessel coronary artery disease status post June 09, 2021 CABG x 4 (ANTUNEZ to LAD, SVG to ramus, OM, PDA), radiofrequency atrial ablation, and ligation of the left atrial appendage with a 45 mm [address] clip by Dr. Lazo. 5. Postoperative CABG course complicated by bleeding requiring transfusion of PRBCs as well as postoperative atrial fibrillation for which he was transiently prescribed amiodarone. 6. 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 Impotence. 10. BPH with LUTS 11. Suspected sleep apnea. 12. Anemia. FOBT positive in 04/2021. Prior colonoscopy in 2006 and 2016 with diverticulosis and internal hemorrhoids Allergies Allergy/AdvReac Type Severity Reaction Status Date / Time lisinopril Allergy Severe Angioedema Verified 07/01/24 11:22 Home Medications Medication Instructions Recorded Confirmed Type apixaban 5 mg tablet 5 mg PO BID 05/24/21 07/08/24 History atorvastatin 80 mg tablet 40 mg PO PM 05/24/21 07/08/24 History magnesium oxide 500 mg PO DAILY 05/24/21 07/08/24 History potassium chloride 20 mEq 20 meq PO QAM 05/24/21 07/08/24 History tablet,extended release aspirin 81 mg tablet,delayed 81 mg PO QAM 12/16/21 07/08/24 History release (Adult Aspirin Regimen) coenzyme Q10 200 mg capsule 200 mg PO DAILY 12/16/21 07/08/24 History cyanocobalamin (vitamin B-12) 500 500 mcg PO DAILY 12/16/21 07/08/24 History mcg tablet folic acid 0.8 mg capsule 0.8 mg PO DAILY 12/16/21 07/08/24 History furosemide 40 mg tablet 40 mg PO QAM 12/16/21 07/08/24 History losartan 50 mg tablet 100 mg PO QAM 12/16/21 07/08/24 History metoprolol succinate 25 mg 25 mg PO QAM 12/16/21 07/08/24 History tablet,extended release 24 hr nitroglycerin 0.4 mg sublingual 0.4 mg sublingual Q5M PRN Chest 12/16/21 07/08/24 History tablet Pain omeprazole 20 mg capsule,delayed 20 mg PO QAM 12/16/21 07/08/24 History release vit 168-iron 27 mg-folic 1 cap PO QAM 12/16/21 07/08/24 History acid 800 mcg-omega3 235 mg capsule (One-A-Day -1) vit C 250 mg-vit E 90 mg-zinc 40 1 tab PO DAILY 12/16/21 07/08/24 History mg-copper 1 qn-exxzed-ecxosy capsule (PreserVision AREDS-2) vitamin B complex (B 1 tab PO DAILY 12/21/21 07/08/24 History Complex-Vitamin B12 tablet) amlodipine 5 mg tablet 5 mg PO QAM 07/01/24 07/08/24 History evolocumab 140 mg/mL subcutaneous 140 mg subcut UD 07/01/24 07/08/24 History pen injector (lEizabeth Brown) hydralazine 25 mg tablet 25 mg PO TID 07/01/24 07/08/24 History Patient History Medical History CAD (coronary artery disease) CABG x 4 (2020) Follows with [facility] Peripheral neuropathy Sleep apnea Home study showed he was having periods of apnea. Formal sleep study recomme nded (not done yet) Atrial fibrillation Taking Eliquis Hypertension Hyperlipidemia Surgical History Hx of cardiac catheterization (04/2021) 04/2021 > CABG x4 (05/2021) History of tonsillectomy History of inguinal hernia repair x2, right side History of cataract surgery (2020) Bilateral History of cystoscopy History of colonoscopy History of coronary artery bypass graft CABG x4 (2020) Family History Mother Hypertension Father Viral encephalitis Brother Coronary heart disease Other History of coronary artery bypass graft Social History Smoking Status: Former smoker Tobacco Type: Smokeless Tobacco (Dip or Chew) Second Hand Exposure: No; Do You Dip or Chew Tobacco: Yes; Tobacco Cessation Education Requested by Patient: No Hx Alcohol Use: No Hx Substance Use: Yes Last Used Substance: Days (ago) Last Used Substance Other:: 07-07-24 Substance Use Type Other:: 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 Preferred Language: Nigerian Communication Ability: Effective Paint Grinder Required: No Beliefs That Will Affect Care: None Current Living Situation: Spouse and Family Current Living Situation Comment: lives with and 2 grown sons current occupation: Retired Other Information That Helps Us Care for You: No Feels Safe at Home: Yes Safety Concerns: Feels Safe At This Time Assistive Devices: Cane and Walker Assistive Devices Comment: Pt uses a cane with ambulation Review of Systems Review of Systems: All systems reviewed & are unremarkable except as noted in Subjective Physical Exam Constitutional: well nourished; no acute distress and not ill appearing Respiratory: no respiratory distress, no labored breathing and no retractions Auscultation: + rales (Right base); no rhonchi and no wheezes Cardiovascular: Rate/Rhythm: + irregularly irregular Heart Sounds: normal S1 and normal S2; no murmur Vessels: radial pulses present; no JVD and no carotid bruit Extremities: no edema Gastrointestinal (Abdomen): Inspection/Auscultation: abdomen normal to inspection and normal bowel sounds; abdomen not distended Percussion/Palpation: abdomen nontender, no guarding, abdomen not rigid and + abdomen not soft Neurologic: CN's II-XI intact bilaterally and moves all extremities; no focal motor deficits Results & Data Vital Signs (Past 12 Hours) Vital Signs Temp Pulse Pulse Resp BP Pulse Ox O2 Del Method 07/11/24 07:53 36.7 C 97 H 20 138/75 91 Room Air 07/11/24 07:13 88 07/11/24 03:35 37.1 C 79 20 108/57 L 90 Room Air 07/10/24 23:39 37.2 C 85 20 119/65 92 Room Air 07/10/24 21:52 90 Laboratory Results Cardiac Enzymes 07/10/24 07/11/24 Range/Units 17:35 06:12 AST 21 (13-39) U/L Troponin I High Sens 7.1 (0-20) pg/ml CBC 07/11/24 Range/Units 06:12 WBC 11.65 H (4.8-10.8) K/ul RBC 3.47 L (4.70-6.10) M/uL Hgb 11.3 L (14.0-18.0) g/dl Hct 33.6 L (42.0-52.0) % Plt Count 169 (130-400) K/uL Neut # (Auto) 8.85 H (1.40-6.50) K/uL Lymph # (Auto) 0.90 L (1.20-3.40) K/uL [place] # (Auto) 1.38 H (0.11-0.59) K/uL Eos # (Auto) 0.41 (0.00-0.50) K/uL Baso # (Auto) 0.03 (0.00-0.20) K/uL Comprehensive Metabolic Panel 07/11/24 Range/Units 06:12 Sodium 138 (136-145) mmol/L Potassium 3.8 (3.5-5.1) mmol/L Chloride 104 (98-107) mmol/L Carbon Dioxide 28 (21-32) mmol/L BUN 21 (6-23) mg/dl Creatinine 0.64 (0.6-1.4) mg/dl Glucose 105 H (70-99(Fasting)) mg/dl Calcium 9.9 (8.6-10.3) mg/dl AST 21 (13-39) U/L ALT 21 (7-52) U/L Alkaline Phosphatase 74 (34-104) U/L Total Protein 6.8 (6.0-8.3) gm/dl Albumin 3.6 (3.4-5.0) gm/dl Intake and Output 07/10/24 07/11/24 07/11/24 22:59 06:59 14:59 Intake Total 240 / 580 100 / 580 Balance 240 / 580 100 / 580 Intake: Oral 240 / 580 100 / 580 Other: Weight 74.2 kg Weight Measurement Method Built in [facility]
--- NOTE | 2024-07-11 08:55 | Pulmonology Progress Note ---
Date of Service July 11, 2024 Assessment & Plan (1) Acute right flank pain: (2) Interstitial lung disease: Plan Impression: 79-year-old male admitted with right upper quadrant pain and flank pain. He had incidental finding of interstitial lung disease. He has had slight progression of the right-sided effusion and patchy basilar airspace disease but his white count is normal and his fevers resolved. Unclear if this represents a sympathetic effusion or other potential alternative etiology. Effusion is still too small to sample Recommendations: 1. Transition from doxycycline to oral Augmentin with plans for 5-day course 2. Right upper quadrant pain-resolved: Unclear if this is related to a pulmonary process or not. He has multiple potential etiologies but at this point in time his pain appears resolved. For pleural inflammation, we will place him on scheduled ibuprofen 600 mg every 8 to see if this offers him a benefit. 3. Interstitial lung disease: Incidental finding. The patient reports he gets CT scans performed through [facility] on a regular basis. Correlation with those films would be appropriate. Would recommend outpatient follow-up pulmonary function testing. The patient can establish with [facility] in the outpatient setting for long-term follow-up. 4. Pulmonary nodule: The patient reports multiple prior CT scans performed through the [facility] system. Correlation with prior imaging will be required. If the nodule is demonstrated greater than 12 months of stability, no additional radiographic follow-up is needed. If the nodule is new, consideration for a follow-up CT scan in 3 months might be appropriate Will repeat his chest x-ray in the a.m. to assess whether or not there is been any significant progression. Thoracentesis would necessitate his full anticoagulation being discontinued for at least 48 hours. Admission and Anticipated Discharge Date Admission Date: July 08, 2024 Subjective Asked by hospitalist to reevaluate this patient. He was seen previously with questionable bronchitic symptoms. He had recurrence of his pain last evening and had a repeat CT scan performed which revealed slight progression of the right-sided effusion. This morning the patient states he feels well. He states the pain recurred in his right upper quadrant last evening. It was not associated with cough or sputum production. He relates that all of the symptoms have manifested since he underwent FERNIE and he queries whether there could have been something going on with his esophagus. Review of Systems Review of Systems: All systems reviewed & are unremarkable except as noted in Subjective Physical Exam Constitutional: WD/WN, vitals as above Neck: trachea midline, no thyromegaly Respiratory: normal respiratory effort, lungs clear to auscultation Cardiovascular: RRR, no murmur, no edema Gastrointestinal (Abdomen): normal bowel sounds, soft, nontender, no hepatosplenomegaly Musculoskeletal: Extremities: extremities normal to inspection Skin: no rashes, warm and dry Lymphatic: no cervical lymphadenopathy Results & Data Results & Data Vital Signs (Past 12 Hours) Vital Signs Temp Pulse Pulse Resp BP Pulse Ox O2 Del Method 07/11/24 07:53 36.7 C 97 H 20 138/75 91 Room Air 07/11/24 07:13 88 07/11/24 03:35 37.1 C 79 20 108/57 L 90 Room Air 07/10/24 23:39 37.2 C 85 20 119/65 92 Room Air 07/10/24 21:52 90 Critical Care Results & Data Vital Signs (Past 12 Hours) Vital Signs Temp Pulse Pulse Resp BP Pulse Ox O2 Del Method 07/11/24 07:53 36.7 C 97 H 20 138/75 91 Room Air 07/11/24 07:13 88 07/11/24 03:35 37.1 C 79 20 108/57 L 90 Room Air 07/10/24 23:39 37.2 C 85 20 119/65 92 Room Air 07/10/24 21:52 90 Lab & Micro Results (Past 24 Hours) RBC 3.47 M/uL (4.70-6.10) L 07/11/24 WBC 11.65 K/ul (4.8-10.8) H 07/11/24 Hgb 11.3 g/dl (14.0-18.0) L 07/11/24 Hct 33.6 % (42.0-52.0) L 07/11/24 MCV 96.8 fL (80.0-100.0) 07/11/24 MCH 32.6 pg (25.0-34.0) 07/11/24 MCHC 33.6 g/dL (32.0-36.0) 07/11/24 RDW Standard Deviation 46.1 fL (36.4-46.3) 07/11/24 RDW Coefficient of Variation 12.9 % (11.5-14.5) 07/11/24 Plt Count 169 K/uL (130-400) 07/11/24 MPV 10.0 fL (9.4-12.4) 07/11/24 Neutrophils (%) (Auto) 76.0 % 07/11/24 Lymphocytes (%) (Auto) 7.7 % 07/11/24 Monocytes # (Auto) 1.38 K/uL (0.11-0.59) H 07/11/24 Eosinophils # (Auto) 0.41 K/uL (0.00-0.50) 07/11/24 Immature Granulocyte % (Auto) 0.7 % 07/11/24 Neutrophils # (Auto) 8.85 K/uL (1.40-6.50) H 07/11/24 Lymphocytes # (Auto) 0.90 K/uL (1.20-3.40) L 07/11/24 Monocytes # (Auto) 1.38 K/uL (0.11-0.59) H 07/11/24 Eosinophils # (Auto) 0.41 K/uL (0.00-0.50) 07/11/24 Basophils # (Auto) 0.03 K/uL (0.00-0.20) 07/11/24 Immature Granulocyte # (Auto) 0.08 K/uL (0.01-0.20) 4 Na 138 mmol/L (136-145) 07/11/24 K 3.8 mmol/L (3.5-5.1) 07/11/24 Cl 104 mmol/L (98-107) 07/11/24 CO2 28 mmol/L (21-32) 07/11/24 Anion Gap 6 (3-11) 07/11/24 BUN 21 mg/dl (6-23) 07/11/24 Creatinine 0.64 mg/dl (0.6-1.4) 07/11/24 BUN/Creatinine Ratio 32.8 (10-20) H 07/11/24 Glu 105 mg/dl (70-99(Fasting)) H 07/11/24 Ca 9.9 mg/dl (8.6-10.3) 07/11/24 Phosphorus Level 2.5 mg/dl (2.5-4.9) 07/11/24 Total Bilirubin 1.0 mg/dl (0.2-1.0) 07/11/24 AST 21 U/L (13-39) 07/11/24 ALT 21 U/L (7-52) 07/11/24 Alkaline Phosphatase 74 U/L (34-104) 07/11/24 TP 6.8 gm/dl (6.0-8.3) 07/11/24 Albumin 3.6 gm/dl (3.4-5.0) 07/11/24 Globulin 3.2 gm/dl (2.5-4.0) 07/11/24 Albumin/Globulin Ratio 1.1 (0.9-2) 07/11/24 Mg 1.8 mg/dl (1.7-2.4) 07/11/24 06:12 Calcium Level 9.9 mg/dl (8.6-10.3) 07/11/24 06:12 Microbiology 07/08/24 17:38 Aerobic Blood Culture - Preliminary Blood No growth in Aerobic bottle after 48 hours. Anaerobic Blood Culture - Preliminary No growth in Anaerobic bottle after 48 hours. 07/08/24 17:45 Aerobic Blood Culture - Preliminary Blood No growth in Aerobic bottle after 48 hours. Anaerobic Blood Culture - Preliminary No growth in Anaerobic bottle after 48 hours. Diagnostic Findings (Past 24 Hours) Chest CT 07/10/24 11:52 CT OF THE CHEST WITHOUT IV CONTRAST CLINICAL HISTORY: Chest pain. COMPARISON STUDY: Chest CT July 08, 2024. CT DOSE: 388.11 mGy.cm TECHNIQUE: Axial images of the chest were obtained without IV contrast. Images were reviewed in the axial, sagittal, and coronal planes. IV contrast was not administered for this examination. Automated exposure control was utilized for the study. A dose lowering technique was utilized adhering to the principles of ALARA. FINDINGS: Prominent right hilar lymph nodes are better depicted on contrast enhanced CT of July 08, 2024. There are median sternotomy wires, postoperative findings from bypass grafting and a left atrial appendage occluder device. The heart is moderately enlarged. There is no pericardial effusion. Small right pleural effusion has increased in size since prior exam. Right lower lobe airspace opacity with volume loss has increased. Subpleural reticulation is again noted. There is no pneumothorax. Central airways are patent. A 6 mm subpleural left lower lobe nodule on image 140 of 229 is again noted. There are no acute fractures within the bony thorax. IMPRESSION: 1. Increase in size of a small right pleural effusion with associated fissural fluid. 2. Increase in right lower lobe airspace opacity with slight loss. This favors atelectasis although pneumonia could appear similar. 3. Moderate cardiomegaly. 4. 6 mm subpleural left lower lobe nodule. A chest CT in 6 months to ensure stability is recommended. 5. Subpleural reticulation consistent with interstitial lung disease. ACT 112: Negative or not required by law. Electronically signed by: Donnie Biswas M.D. 07/10/2024 1:21 PM I & O Totals 24 Hours 07/10/24 07/11/24 07/12/24 06:59 06:59 06:59 Intake Total 1060 / 1060 580 / 580 Balance 1060 / 1060 580 / 580 Cumulative 07/08/24 11:10 thru 07/11/24 06:13 Intake Total 2585 Balance 2585 RT Ventilator Mngmt (Last Documented) Ventilator Ordered Settings Respiratory Rate 20 07/11/24 07:53 Ventilator - PT Measurements Respiratory Rate 20 PG Care Time/CCT Total # of Minutes Spent Total Time Spent with Patient: Total time spent is greater than 50% in coordination of care (as documented) at patient's floor/unit and/or counseling patient: Coding Level of Care Code 52109 SUB INP/OBS CARE 2/35MIN Diagnoses Acute right flank pain R10.9 Interstitial lung disease J84.9
[2024-07-11] MEDS: IBUPROFEN 600 MG TAB PO SCH (10:43)
--- NOTE | 2024-07-11 13:23 | Hospitalist Progress Note ---
Date of Service July 11, 2024 Assessment & Plan (1) Pleurisy: (2) Right lower lobe pneumonia: (3) CAD (coronary artery disease): (4) Atrial fibrillation: (5) Hypertension: (6) Hyperlipidemia: Plan This is a 79-year-old male who has significant past medical history of CAD with CABG x 4 ((ANTUNEZ to LAD, SVG to ramus, OM, PDA), radiofrequency atrial ablation, and ligation of the left atrial appendage with a 45 mm Atricure clip by Dr. Lazo), PAF with history of maze procedure, HTN, HLD, prediabetes, mild aortic regurgitation, mild mitral regurgitation, suspected sleep apnea, cerebellar ataxia, chronic bilateral low back pain, autoimmune cerebellar degeneration who presents to the ED secondary to shortness of breath and right flank pain x 1 day. R flank Pain RLQ abdominal Pain Possible Bronchitis interstitial lung disease patient with increased oxygen requirement as well as right flank and lower abdominal pain also with leukocytosis and tachycardic at times respiratory panel negative CT abdomen pelvis with no noted acute findings Chest CT with no acute findings Repeat chest CT on 07/10/2024 noting increasing right-sided pleural effusion. Liver enzymes currently within normal limits except for elevated T. bili, gallbladder ultrasound unremarkable There was a question of pneumonia, possible aspiration with recent FERNIE. Pulmonology was consulted for further recs -Recommended discontinuing IV Unasyn and continuing with oral doxycycline - advises that findings are not suggestive of pleurisy or pneumonia as a cause of symptoms Incentive spirometry, prn neb, Lidocaine patch As needed oxycodone which provides relief however would not want to suppress respiratory drive As needed Flexeril ordered for possible musculoskeletal cause- has been helping if pain persists consider repeat imaging of the area continue with p.o. doxycycline Urology also consulted given location of pain and noted nonobstructive kidney stones on CT. Appreciate recs Continue to monitor 07/11/2024-reevaluated by pulmonology, started on ibuprofen for pain and possible inflammatory cause and antibiotic switched to Augmentin. Repeat chest x-ray ordered by pulmonology for the a.m. no thoracentesis needed at this time CAD s/p CABG x 4 PAF with ANAMIKA Hyperlipidemia rate controlled on metoprolol, continue apixaban no CP, continue asa, losartan, hydralazine, repatha patient with history of congestive heart failure -07/10/24 Episode of right-sided chest pain. Pending EKG, Trop, repeat echo. Repeat chest CT noting increase in right-sided pleural effusion. Likely cause of right-sided chest pain and right abdomen or flank pain - cardiology consulted given findings above, appreciate recs 07/11/2024-patient evaluated by cardiology, no medication changes or further cardiac testing recommended at this time. HTN: chronic, stable on losartan, hydralazine, lasix, metoprolol, amlodipine Pulmonary Nodules chest imaging noting the following: "Bibasilar pulmonary nodules measuring up to 9 mm. Correlate with any prior outside imaging studies to assess for stability. If no prior studies are available a 3-4 month follow-up chest CT is recommended for reevaluation and full assessment of the thorax." According to Fleischner criteria, 3 month follow-up CT is recommended. PCP follow-up on discharge DVT ppx: Elicorrine FULL CODE PCP: Ariana Dispo: PT/OT ordered for further recs Admission and Anticipated Discharge Date Admission Date: July 08, 2024 Subjective Patient was seen laying in bed Anxious for discharge but admits that he would like to stay to get better States still having occasional right-sided flank and abdominal pain. No more chest pain Concerned about the ibuprofen being recommended by pulmonology with his use of Eliquis patient reassured that he is in the hospital and being monitored for any bleeding Review of Systems Review of Systems: All systems reviewed & are unremarkable except as noted in Subjective Physical Exam Physical Exam: General: Alert, oriented. No acute distress Psych: Appropriate mood and affect Neuro: difficulty with movements in the bed HEENT: NC/AT CV: RRR Resp: Breath sounds clear bilaterally, patient unable to take deep breaths Abdomen: Soft, tender in right lower quadrant and right flank Extremities: No edema in lower extremities bilaterally. Results & Data Results & Data Vital Signs (Past 12 Hours) Vital Signs Temp Pulse Pulse Resp BP Pulse Ox O2 Del Method 07/11/24 11:41 36.7 C 87 18 129/76 94 Room Air 07/11/24 09:16 Room Air 07/11/24 07:53 36.7 C 97 H 20 138/75 91 Room Air 07/11/24 07:13 88 07/11/24 03:35 37.1 C 79 20 108/57 L 90 Room Air
[2024-07-11] MEDS: AMOXICILLIN/CLAVULANATE 875 MG TAB PO SCH (16:48)
[2024-07-11 19:36] VITALS: O2SAT 95
[2024-07-12 06:09] LABS: Basophils # (auto) 0.03 K/uL (0.00-0.20); Basophils % (auto) 0.3 %; Eosinophils # (auto) 0.42 K/uL (0.00-0.50); Eosinophils % (auto) 4.6 %; Hematocrit (blood only) 32.4 % (42.0-52.0); Hemoglobin 10.7 g/dl (14.0-18.0); Immature Granulocytes # (auto) 0.04 K/uL (0.01-0.20); Immature Granulocytes % (auto) 0.4 %; Lymphocytes # (auto) 0.89 K/uL (1.20-3.40); Lymphocytes % (auto) 9.8 %; Mean Platelet Volume 9.9 fL (9.4-12.4); Monocytes # (auto) 1.16 K/uL (0.11-0.59); Monocytes % (auto) 12.8 %; Neutrophils % (auto) 72.1 %; Platelet Count 173 K/uL (130-400); RDW Coefficient of Variation 12.9 % (11.5-14.5); Red Blood Count 3.34 M/uL (4.70-6.10); White Blood Count 9.04 K/ul (4.8-10.8)
[2024-07-12 06:17] LABS: Albumin Globulin Ratio 1.1 (0.9-2); Albumin Level 3.5 gm/dl (3.4-5.0); BUN Creatinine Ratio 30.5 (10-20); Bilirubin,Total 0.6 mg/dl (0.2-1.0); Calcium 9.8 mg/dl (8.6-10.3); Creatinine Clr Calc Pharmacy 49.9 ml/min; Globulin 3.2 gm/dl (2.5-4.0); Magnesium 1.9 mg/dl (1.7-2.4); Phosphorus 3.3 mg/dl (2.5-4.9); Total Protein 6.7 gm/dl (6.0-8.3)
[2024-07-12 08:12] VITALS: RESP 16; TEMP 97.6
--- NOTE | 2024-07-12 08:20 | XRay Report ---
XR chest 1V portable CLINICAL HISTORY: effusion TECHNIQUE: Single frontal radiograph of the chest was obtained. Comparison: Comparison is made to CT chest 07/10/2024 FINDINGS: Median sternotomy wires are unchanged. Cardiomegaly is noted. Right lower lung airspace opacities are seen. Small right pleural effusion. IMPRESSION: Small right pleural effusion with underlying airspace opacity. This may represent atelectasis, pneumo vielka, and/or aspiration. ACT 112: Negative or not required by law. Electronically signed by: Ramsey Fraga M.D. 07/12/2024 8:19 AM
--- NOTE | 2024-07-12 08:23 | Pulmonology Progress Note ---
Date of Service July 12, 2024 Assessment & Plan (1) Acute right flank pain: (2) Interstitial lung disease: Plan Impression: 79-year-old male admitted with right upper quadrant pain and flank pain. He had incidental finding of interstitial lung disease. He has a small effusion but the pain is resolved with nonsteroidal anti-inflammatories and he appears to be improving clinically Recommendations: 1. Pneumonia: Continue l Augmentin with plans for 7-day course 2. Pleural effusion: Stable on imaging and exam. 2 small to sample. Recommend completing course of antibiotics and follow-up chest x-ray in 2 to 3 weeks. 3. Interstitial lung disease: Incidental finding. The patient reports he gets CT scans performed through [facility] on a regular basis. Correlation with those films would be appropriate. Would recommend outpatient follow-up pulmonary function testing. The patient can establish with [facility] in the outpatient setting for long-term follow-up. 4. Pulmonary nodule: The patient reports multiple prior CT scans performed through the [facility] system. Correlation with prior imaging will be required. If the nodule is demonstrated greater than 12 months of stability, no additional radiographic follow-up is needed. If the nodule is new, consideration for a follow-up CT scan in 3 months might be appropriate Patient appears stable to consider dismissal from the hospital. Again he should have a follow-up chest x-ray in 2 to 3 weeks and workup of his interstitial lung disease in the outpatient setting. Pulmonary will sign off. Feel free to contact us with questions or concerns Admission and Anticipated Discharge Date Admission Date: July 08, 2024 Subjective Patient seen and examined. EMR reviewed. The patient reports he is feeling better. His pain is resolved. He did have night sweats last night. He continues to cough and expectorate small amount of phlegm but this is decreasing as well. He is not experiencing any chest pain. He is been weaned off oxygen. Review of Systems Review of Systems: All systems reviewed & are unremarkable except as noted in Subjective Physical Exam Constitutional: WD/WN, vitals as above Neck: trachea midline, no thyromegaly Respiratory: normal respiratory effort, lungs clear to auscultation Cardiovascular: RRR, no murmur, no edema Gastrointestinal (Abdomen): normal bowel sounds, soft, nontender, no hepatosplenomegaly Musculoskeletal: Extremities: extremities normal to inspection Skin: no rashes, warm and dry Lymphatic: no cervical lymphadenopathy Results & Data Results & Data Vital Signs (Past 12 Hours) Vital Signs Temp Pulse Pulse Resp BP Pulse Ox O2 Del Method 07/12/24 08:11 36.4 C 83 16 134/82 95 Room Air 07/12/24 07:26 76 07/12/24 03:40 36.5 C 83 18 125/51 L 95 Room Air 07/11/24 21:35 85 07/11/24 21:15 Room Air Critical Care Results & Data Vital Signs (Past 12 Hours) Vital Signs Temp Pulse Pulse Resp BP Pulse Ox O2 Del Method 07/12/24 08:11 36.4 C 83 16 134/82 95 Room Air 07/12/24 07:26 76 07/12/24 03:40 36.5 C 83 18 125/51 L 95 Room Air 07/11/24 21:35 85 07/11/24 21:15 Room Air Lab & Micro Results (Past 24 Hours) RBC 3.34 M/uL (4.70-6.10) L 07/12/24 WBC 9.04 K/ul (4.8-10.8) 07/12/24 Hgb 10.7 g/dl (14.0-18.0) L 07/12/24 Hct 32.4 % (42.0-52.0) L 07/12/24 MCV 97.0 fL (80.0-100.0) 07/12/24 MCH 32.0 pg (25.0-34.0) 07/12/24 MCHC 33.0 g/dL (32.0-36.0) 07/12/24 RDW Standard Deviation 46.0 fL (36.4-46.3) 07/12/24 RDW Coefficient of Variation 12.9 % (11.5-14.5) 07/12/24 Plt Count 173 K/uL (130-400) 07/12/24 MPV 9.9 fL (9.4-12.4) 07/12/24 Neutrophils (%) (Auto) 72.1 % 07/12/24 Lymphocytes (%) (Auto) 9.8 % 07/12/24 Monocytes # (Auto) 1.16 K/uL (0.11-0.59) H 07/12/24 Eosinophils # (Auto) 0.42 K/uL (0.00-0.50) 07/12/24 Immature Granulocyte % (Auto) 0.4 % 07/12/24 Neutrophils # (Auto) 6.50 K/uL (1.40-6.50) 07/12/24 Lymphocytes # (Auto) 0.89 K/uL (1.20-3.40) L 07/12/24 Monocytes # (Auto) 1.16 K/uL (0.11-0.59) H 07/12/24 Eosinophils # (Auto) 0.42 K/uL (0.00-0.50) 07/12/24 Basophils # (Auto) 0.03 K/uL (0.00-0.20) 07/12/24 Immature Granulocyte # (Auto) 0.04 K/uL (0.01-0.20) 4 Na 137 mmol/L (136-145) 07/12/24 K 4.0 mmol/L (3.5-5.1) 07/12/24 Cl 106 mmol/L (98-107) 07/12/24 CO2 25 mmol/L (21-32) 07/12/24 Anion Gap 6 (3-11) 07/12/24 BUN 36 mg/dl (6-23) H 07/12/24 Creatinine 1.18 mg/dl (0.6-1.4) 07/12/24 BUN/Creatinine Ratio 30.5 (10-20) H 07/12/24 Glu 100 mg/dl (70-99(Fasting)) H 07/12/24 Ca 9.8 mg/dl (8.6-10.3) 07/12/24 Phosphorus Level 3.3 mg/dl (2.5-4.9) 07/12/24 Total Bilirubin 0.6 mg/dl (0.2-1.0) 07/12/24 AST 42 U/L (13-39) H 07/12/24 ALT 48 U/L (7-52) 07/12/24 Alkaline Phosphatase 106 U/L (34-104) H 07/12/24 TP 6.7 gm/dl (6.0-8.3) 07/12/24 Albumin 3.5 gm/dl (3.4-5.0) 07/12/24 Globulin 3.2 gm/dl (2.5-4.0) 07/12/24 Albumin/Globulin Ratio 1.1 (0.9-2) 07/12/24 Mg 1.9 mg/dl (1.7-2.4) 07/12/24 05:36 Calcium Level 9.8 mg/dl (8.6-10.3) 07/12/24 05:36 Diagnostic Findings (Past 24 Hours) Chest X-Ray 07/12/24 07:00 XR chest 1V portable CLINICAL HISTORY: effusion TECHNIQUE: Single frontal radiograph of the chest was obtained. Comparison: Comparison is made to CT chest 07/10/2024 FINDINGS: Median sternotomy wires are unchanged. Cardiomegaly is noted. Right lower lung airspace opacities are seen. Small right pleural effusion. IMPRESSION: Small right pleural effusion with underlying airspace opacity. This may represent atelectasis, pneumonia, and/or aspiration. ACT 112: Negative or not required by law. Electronically signed by: Ramsey Fraga M.D. 07/12/2024 8:19 AM I & O Totals 24 Hours 07/11/24 07/12/24 07/13/24 06:59 06:59 06:59 Intake Total 580 / 580 760 / 760 Output Total 1 / Balance 580 / 580 759 / 759 Cumulative 07/08/24 11:10 thru 07/12/24 06:10 Intake Total 3345 Output Total 1 Balance 3344 RT Ventilator Mngmt (Last Documented) Ventilator Ordered Settings Respiratory Rate 16 07/12/24 08:11 Ventilator - PT Measurements Respiratory Rate 16 PG Care Time/CCT Total # of Minutes Spent Total Time Spent with Patient: Total time spent is greater than 50% in coordination of care (as documented) at patient's floor/unit and/or counseling patient: Coding Level of Care Code 61126 SUB INP/OBS CARE 2/35MIN Diagnoses Acute right flank pain R10.9 Interstitial lung disease J84.9
--- NOTE | 2024-07-12 08:56 | Discharge Summary ---
Discharge Summary Date of Service July 12, 2024 Principal Dx & Hospital Course #1 = Principal Diagnosis (1) Pleurisy: (2) CAD (coronary artery disease): (3) Atrial fibrillation: (4) Hypertension: (5) Hyperlipidemia: (6) Acute right flank pain: Plan This is a 79-year-old male who has significant past medical history of CAD with CABG x 4 ((ANTUNEZ to LAD, SVG to ramus, OM, PDA), radiofrequency atrial ablation, and ligation of the left atrial appendage with a 45 mm Atricure clip by Dr. Lazo), PAF with history of maze procedure, HTN, HLD, prediabetes, mild aortic regurgitation, mild mitral regurgitation, suspected sleep apnea, cerebellar ataxia, chronic bilateral low back pain, autoimmune cerebellar degeneration who presents to the ED secondary to shortness of breath and right flank pain x 1 day. R flank Pain RLQ abdominal Pain Possible Bronchitis interstitial lung disease patient with increased oxygen requirement as well as right flank and lower abdominal pain also with leukocytosis and tachycardic at times respiratory panel negative CT abdomen pelvis with no noted acute findings Chest CT initially with the following findings: "No acute abnormality and in particular no evidence of pulmonary embolus. Left lower lobe pulmonary nodule. According to Fleischner criteria, 3 month follow-up CT is recommended. Interst itial lung disease." Repeat chest CT on 07/10/2024 noting "Increase in size of a small right pleural effusion with associated fissural fluid. Increase in right lower lobe airspace opacity with slight loss. This favors atelectasis although pneumonia could appear similar." Liver enzymes currently within normal limits except for elevated T. bili, gallbladder ultrasound unremarkable There was a question of pneumonia, possible aspiration with recent FERNIE. Pulmonology was consulted for further recs. Dr Brody recommended the following on the day of discharge: "79-year-old male admitted with right upper quadrant pain and flank pain. He had incidental finding of interstitial lung disease. He has a small effusion but the pain is resolved with nonsteroidal anti-inflammatories and he appears to be improving clinically Recommendations: 1. Pneumonia: Continue l Augmentin with plans for 7-day course 2. Pleural effusion: Stable on imaging and exam. 2 small to sample. Recommend completing course of antibiotics and follow-up chest x-ray in 2 to 3 weeks. 3. Interstitial lung disease: Incidental finding. The patient reports he gets CT scans performed through [facility] on a regular basis. Correlation with those films would be appropriate. Would recommend outpatient follow-up pulmonary function testing. The patient can establish with [facility] in the outpatient setting for long-term follow-up. 4. Pulmonary nodule: The patient reports multiple prior CT scans performed through the [facility] system. Correlation with prior imaging will be required. If the nodule is demonstrated greater than 12 months of stability, no additional radiographic follow-up is needed. If the nodule is new, consideration for a follow-up CT scan in 3 months might be appropriate. Patient appears stable to consider dismissal from the hospital. Again he should have a follow-up chest x-ray in 2 to 3 weeks and workup of his interstitial lung disease in the outpatient setting." Patient was treated with IV Unasyn which was later transitioned to doxycycline per the recommendations of pulmonology before further transition to Augmentin. Patient was discharged on Augmentin 875 mg twice daily per pulmonology recommendations to complete a 7-day course of treatment. Patient's pain was treated with as needed Tylenol, oxycodone and Flexeril. On the day before discharge he was also started on ibuprofen per pulmonology. However, patient with concern about ibuprofen given he is on Eliquis and a baby aspirin. Prefers to treat pain at home with as needed Tylenol and oxycodone which were prescribed. Notes no significant relief from as needed Flexeril. Incentive spirometry, prn neb, Lidocaine patch Urology also consulted given location of pain and noted nonobstructive kidney stones on CT. Recommended/stated the following: "We reviewed his right flank pain. This may have been passing a stone, however he had a completely negative urinalysis and CT scan did not identify any hydronephrosis. Since he is not having any flank pain at this point, would continue to monitor. If flank pain recurs, could consider reimaging to see if he is passing a stone. Nephrolithiasis: We reviewed the stones in his kidney that they are nonobstructing. For now, I would recommend we continue to monitor while he is hospitalized for other issues. We briefly discussed that there are surgical options such as shockwave lithotripsy or ureteroscopy and laser lithotripsy to remove stones. We will discuss these options further as an outpatient. No plan for acute urologic intervention at this point. Would continue to monitor urine output. We will coordinate outpatient follow-up." Please ensure followup with Pulmonology after discharge. Please ensure repeat chest x-ray in 2 to 3 weeks per pulmonology recommendation. Please ensure pulmonary nodule follow up. Please ensure Urology follow up after discharge CAD s/p CABG x 4 PAF with ANAMIKA Hyperlipidemia rate controlled on metoprolol, continue apixaban no CP, continue asa, losartan, hydralazine, repatha patient with history of congestive heart failure EKG with atrial fibrillation Troponin normal Echo with no significant change compared to prior Cardiology was consulted, noted the following: "No plans for thoracentesis currently. Continue antibiotic treatment as per internal medicine and pulmonology. Telemetry reveals rate controlled atrial fibrillation. Although his recent transesophageal echocardiogram demonstrated adequate occlusion of the left atrial appendage, there were concerns regarding presence of Lambl's excrescence. Oral anticoagulation continued. No medication changes or further cardiac testing recommended at this time. Routine outpatient cardiology follow-up as scheduled." Please ensure cardiology follow up after discharge. HTN: chronic, stable on losartan, hydralazine, lasix, metoprolol, amlodipine Pulmonary Nodules chest imaging noting the following: "Bibasilar pulmonary nodules measuring up to 9 mm. Correlate with any prior outside imaging studies to assess for stability. If no prior studies are asad ilable a 3-4 month follow-up chest CT is recommended for reevaluation and full assessment of the thorax." According to Fleischner criteria, 3 month follow-up CT is recommended. PCP follow-up on discharge Notes For Next Care Provider Please ensure followup with Pulmonology after discharge. Please ensure repeat chest x-ray in 2 to 3 weeks per pulmonology recommendation. Please ensure pulmonary nodule follow up. Please ensure Urology follow up after discharge Medication Changes From Visit Augmentin 875 mg twice daily for 11 more doses Oxycodone 5 mg every 8 hours as needed for severe pain Admission HPI Per Admitting Provider This is a 79-year-old male who has significant past medical history of CAD with CABG x 4 ((ANTUNEZ to LAD, SVG to ramus, OM, PDA), radiofrequency atrial ablation, and ligation of the left atrial appendage with a 45 mm Atricure clip by Dr. Lazo), PAF with history of maze procedure, HTN, HLD, prediabetes, mild aortic regurgitation, mild mitral regurgitation, suspected sleep apnea, cerebellar ataxia, chronic bilateral low back pain, autoimmune cerebellar degeneration who presents to ED secondary to shortness of breath and right flank pain x 1 day. History obtained from patient, family at bedside and chart review. Patient recently underwent Trans esophageal echocardiogram on 07/03/2024 which reserved a preserved EF 55 to 60%, status post a surgical left atrial appendage occlusion with atrial clip device. There is no residual flow within the left atrial appendage. There is a mobile linear echodensity on the aortic aspect of the aortic valve measuring 9 mm x 2 mm consistent with a Lambl's excrescence. Pt reports Pain to his R flank and around to this R lower abdomen since last evening. It abruptly woke him from sleep at 2 a.m. to the point he was having difficulty breathing. He states the pain is so severe it takes his breath away. He complains of severe pain with inspiration and inability to take a deep breath. He has a minimal cough. He is unaware of an aspirating event during his procedure. He denies f/c/s, hemoptysis, n/v/d, abd pain, change in bowel or urinary habits. Admission Exam Per Admitting Provider Constitutional: WD/WN, vitals as above, NAD, sitting up in bed, pleasant, conversing easily Head: Normocephalic, Atraumatic Eyes: PERRL, conjunctivae normal, anicteric sclerae ENMT: external ear and nose normal, oropharynx normal Neck: trachea midline, no thyromegaly normal visual inspection Respiratory: normal respiratory effort, +guarding with inspiration, + rales to RLL, lungs clear to auscultation, no wheeze,rhonchi. on 2L of O2 Heart: IRR/IRR, no murmur noted Chest: normal inspection of chest Abdomen: normal bowel sounds, soft, nontender, no hepatosplenomegaly Musculoskeletal: no cyanosis or clubbing, extremities motor strength 5/5 Skin: no rashes, warm and dry normal turgor Neurologic: PERRL, EOMI, accommodation nl, no face palsy, no dysarthria CN's II-XI intact bilaterally and moves all extremities Psychiatric: A+Ox3, euthymic affect Lymphatic: no cervical or axillary lymphadenopathy : deferred Discharge Exam General: Alert, oriented. No acute distress Psych: Appropriate mood and affect Neuro: difficulty with movements in the bed HEENT: NC/AT CV: RRR Resp: Breath sounds clear bilaterally, patient unable to take deep breaths Abdomen: Soft, tender in right lower quadrant and right flank Extremities: No edema in lower extremities bilaterally. Updated Medication List Medication Instructions Recorded Confirmed Type apixaban 5 mg tablet 5 mg PO BID 05/24/21 07/08/24 History atorvastatin 80 mg tablet 40 mg PO PM 05/24/21 07/08/24 History magnesium oxide 500 mg PO DAILY 05/24/21 07/08/24 History potassium chloride 20 mEq 20 meq PO QAM 05/24/21 07/08/24 History tablet,extended release aspirin 81 mg tablet,delayed 81 mg PO QAM 12/16/21 07/08/24 History release (Adult Aspirin Regimen) coenzyme Q10 200 mg capsule 200 mg PO DAILY 12/16/21 07/08/24 History cyanocobalamin (vitamin B-12) 500 500 mcg PO DAILY 12/16/21 07/08/24 History mcg tablet folic acid 0.8 mg capsule 0.8 mg PO DAILY 12/16/21 07/08/24 History furosemide 40 mg tablet 40 mg PO QAM 12/16/21 07/08/24 History losartan 50 mg tablet 100 mg PO QAM 12/16/21 07/08/24 History metoprolol succinate 25 mg 25 mg PO QAM 12/16/21 07/08/24 History tablet,extended release 24 hr nitroglycerin 0.4 mg sublingual 0.4 mg sublingual Q5M PRN Chest 12/16/21 07/08/24 History tablet Pain omeprazole 20 mg capsule,delayed 20 mg PO QAM 12/16/21 07/08/24 History release vit 168-iron 27 mg-folic 1 cap PO QAM 12/16/21 07/08/24 History acid 800 mcg-omega3 235 mg capsule (One-A-Day -1) vit C 250 mg-vit E 90 mg-zinc 40 1 tab PO DAILY 12/16/21 07/08/24 History mg-copper 1 [id number] capsule (PreserVision AREDS-2) vitamin B complex (B 1 tab PO DAILY 12/21/21 07/08/24 History Complex-Vitamin B12 tablet) amlodipine 5 mg tablet 5 mg PO QAM 07/01/24 07/08/24 History evolocumab 140 mg/mL subcutaneous 140 mg subcut UD 07/01/24 07/08/24 History pen injector (Elizabeth Brown) hydralazine 25 mg tablet 25 mg PO TID 07/01/24 07/08/24 History amoxicillin 875 mg-potassium 1 tab PO BIDM #11 tabs 07/12/24 Rx clavulanate 125 mg tablet oxycodone 5 mg tablet 5 mg PO Q8H PRN severe pain (scale 07/12/24 Rx score 7-10) #10 tabs Hospital Stay Data Consultations 07/09/24 08:01 Consult Pulmonology Routine 07/10/24 11:41 Consult Urology Routine 07/10/24 17:04 Consult Cardiology Routine Diagnostic Imagining Performed 07/08/24 13:07 CT abd pelvis wo con Stat 07/08/24 14:32 US gallbladder Stat 07/08/24 15:47 CT for pulmonary embolism PE [CT angio chest PE protocol] Stat 07/10/24 11:52 CT chest diagnostic wo con Urgent Abdomen/Pelvis CT 07/08/24 13:07 CT SCAN OF THE ABDOMEN AND PELVIS WITHOUT IV CONTRAST CLINICAL HISTORY: Right upper quadrant abdominal pain/right flank pain. COMPARISON STUDY: No priors. TECHNIQUE: CT scan of the abdomen and pelvis is performed from the lung bases to the proximal femora. Images are reviewed in the axial, sagittal, and coronal planes. IV contrast was not administered for this examination. A dose lowering technique was utilized adhering to the principles of ALARA. CT DOSE: 826.04 mGy.cm FINDINGS: Lung bases: The patient is status post midline sternotomy. The heart is enlarged and without pericardial effusion. The coronary arteries are densely calcified. The main pulmonary arteries are dilated suggesting pulmonary artery hypertension. Fibrotic changes seen at both lung bases. Question superimposed airspace opacities at the right lung base. Trace pleural fluid is seen on the right. A 6 mm pleural-based nodule in the right middle lobe along the minor fissure is seen on image #1. A 9 mm left basilar nodule as seen on image #18. There is a small hiatal hernia. Liver: The unenhanced liver is normal in size, contour, and attenuation. There is no intrahepatic biliary ductal dilatation. Gallbladder: Unremarkable. Spleen: Normal in size and attenuation. Pancreas: Unremarkable. Adrenal glands: Unremarkable. Kidneys: The unenhanced kidneys are normal in size and without hydronephrosis. There is a 3 mm nonobstructing right renal calculus. There are at least 5 nonobstructing left renal calculi which measure up to 4 mm. No ureteral stone is seen. Simple and complex renal cysts measuring up to 2.5 cm. Abdominal vasculature: The abdominal aorta is normal in course and caliber noting advanced atherosclerotic calcification. Bowel: There is mild colonic diverticulosis without CT evidence of acute diverticulitis. No bowel obstruction is seen. Mild fecal retention is seen throughout the colon. A duodenal diverticulum is noted. The appendix is well- visualized and normal. Peritoneum: There is no intraperitoneal free air or abdominal ascites. There is a small fat-containing umbilical hernia. Lymphadenopathy: None. Pelvic viscera: The prostate gland is diminutive and heterogeneous. The bladder is mildly distended, and the wall appears thickened/trabeculated indicating chronic outlet obstruction. Skeletal structures: The skeletal structures are osteopenic. There is moderate lumbosacral spondylosis. No lytic or blastic lesions are seen. IMPRESSION: 1. No acute infectious or inflammatory findings are identified in the abdomen or pelvis. 2. Cardiomegaly with fibrotic change seen at both lung bases. 3. Question superimposed airspace consolidation at the right lung base, and there is also trace pleural fluid on the right. Correlate clinically for evidence of a superimposed pneumonia/aspiration pneumonitis. 4. Bibasilar pulmonary nodules measuring up to 9 mm. Correlate with any prior outside imaging studies to assess for stability. If no prior studies are available a 3-4 month follow-up chest CT is recommended for reevaluation and full assessment of the thorax. 5. Bilateral nephrolithiasis. 6. Additional findings as above. ACT 112: Negative or not required by law. Electronically signed by: Ken Palmer M.D. 07/08/2024 1:40 PM Gallbladder Ultrasound 07/08/24 14:32 US gallbladder CLINICAL HISTORY: RUQ pain TECHNIQUE: Multiple real-time sonographic images of the right upper quadrant were obtained. Comparison: Comparison is made to CT abdomen pelvis 07/08/2024 FINDINGS: The liver is diffusely homogenous with normal contour and echogenicity. No focal mass lesions are seen. No intrahepatic ductal dilatation is seen. No gallstones or sludge are identified within the gallbladder. The gallbladder wall is not thickened. There is no pericholecystic fluid present. A sonographic Alvarez's sign was not elicited by the repairer screen crusher. The common duct measures 0.5 cm in diameter at the level of the hepatic artery. The visualized portions of the pancreas appear normal. The right kidney shows normal echogenicity, cortical thickness and renal contour. The right kidney shows no evidence of hydronephrosis. A cyst in the upper pole measures 1.5 x 1.6 x 1.3 cm. No ascites or free fluid is seen in Zimmer's pouch. IMPRESSION: Unremarkable right upper quadrant ultrasound. ACT 112: Negative or not required by law. Electronically signed by: Ramsey Fraga M.D. 07/08/2024 3:45 PM Chest CTA 07/08/24 15:47 CT angio chest PE protocol CLINICAL HISTORY: RUQ abd, pleuritic CP ?PE TECHNIQUE: Multidetector row helical CT of the chest was performed with angiographic protocol. Coronal and sagittal reformations were obtained. Coronal and sagittal MIPS were obtained from the axial data set and were submitted for review. Automated dose lowering techniques and/or adjustment according to patient size were utilized for this exam. CT DOSE: 483.27 mGy.cm Comparison: None available at the time of this dictation. FINDINGS: Lungs and pleura: Peripheral interstitial thickening is seen. Right fissural nodule is noted. There is an 8 mm nodule left lower lobe (series 4 image 96). Heart and pericardium: Cardiomegaly is seen with biatrial enlargement. Atrial appendage clip is seen. Vessels: No evidence of pulmonary embolism. Severe atherosclerotic disease is seen. Mediastinum and liz: Unremarkable. Chest wall and lower neck: Unremarkable. Abdomen: A hiatal hernia is seen. Bones: Degenerative changes in the thoracic spine. IMPRESSION: 1. No acute abnormality and in particular no evidence of pulmonary embolus. 2. Left lower lobe pulmonary nodule. According to Fleischner criteria, 3 month follow-up CT is recommended. 3. Interstitial lung disease. ACT 112: Negative or not required by law. Electronically signed by: Ramsye Fraga M.D. 07/08/2024 4:[address] 07/10/24 11:52 CT OF THE CHEST WITHOUT IV CONTRAST CLINICAL HISTORY: Chest pain. COMPARISON STUDY: Chest CT July 08, 2024. CT DOSE: 388.11 mGy.cm TECHNIQUE: Axial images of the chest were obtained without IV contrast. Images were reviewed in the axial, sagittal, and coronal planes. IV contrast was not administered for this examination. Automated exposure control was utilized for the study. A dose lowering technique was utilized adhering to the principles of ALARA. FINDINGS: Prominent right hilar lymph nodes are better depicted on contrast enhanced CT of July 08, 2024. There are median sternotomy wires, postoperative findings from bypass grafting and a left atrial appendage occluder device. The heart is moderately enlarged. There is no pericardial effusion. Small right pleural effusion has increased in size since prior exam. Right lower lobe airspace opacity with volume loss has increased. Subpleural reticulation is again noted. There is no pneumothorax. Central airways are patent. A 6 mm subpleural left lower lobe nodule on image 140 of 229 is again noted. There are no acute fractures within the bony thorax. IMPRESSION: 1. Increase in size of a small right pleural effusion with associated fissural fluid. 2. Increase in right lower lobe airspace opacity with slight loss. This favors atelectasis although pneumonia could appear similar. 3. Moderate cardiomegaly. 4. 6 mm subpleural left lower lobe nodule. A chest CT in 6 months to ensure stability is recommended. 5. Subpleural reticulation consistent with interstitial lung disease. ACT 112: Negative or not required by law. Electronically signed by: Donnie Biswas M.D. 07/10/2024 1:21 PM Chest X-Ray 07/12/24 07:00 XR chest 1V portable CLINICAL HISTORY: effusion TECHNIQUE: Single frontal radiograph of the chest was obtained. Comparison: Comparison is made to CT chest 07/10/2024 FINDINGS: Median sternotomy wires are unchanged. Cardiomegaly is noted. Right lower lung airspace opacities are seen. Small right pleural effusion. IMPRESSION: Small right pleural effusion with underlying airspace opacity. This may represent atelectasis, pneumonia, and/or aspiration. ACT 112: Negative or not required by law. Electronically signed by: Ramsey Fraga M.D. 07/12/2024 8:19 AM Discharge Instructions Given to Patient (Per Discharging Provider) Mr. Marinelli, Adan are admitted and treated for right-sided chest, flank, abdominal pain. You were seen by multiple specialists including the interactive media marketing strategist, urologist and oil and gas superintendent. Imaging indicated concern for a pleural effusion on the right. You were seen by the interactive media marketing strategist who noted that it was stable on imaging and exam and that it was too small to sample. Recommends follow-up chest x-ray in 2 to 3 weeks. There was also concern that you might have had a possible right-sided pneumonia causing your symptoms as well. The interactive media marketing strategist recommended treatment for a total of 7 days with the antibiotic Augmentin. You started that while in the hospital and you are being discharged with an additional 6 days of treatment. Please take as prescribed. It was also noted that you had pulmonary nodules for which you will need close followup as well. Please continue with the Tylenol as needed at home to help with your pain and the prescribed oxycodone to use only for SEVERE pain. Please keep close follow-up with urology as an outpatient for your noted kidney stones Please keep close follow-up with cardiology after discharge as well. They recommend no changes to your medications at this time. Please also keep close follow up with your primary care provider after discharge. Please do not hesitate to come back to the emergency room if your symptoms worsen or return. It was a pleasure taking care of you while you were here. Total Time Total Time Spent Total Time Spent (In Minutes): 65
[2024-07-12 11:03] VITALS: BP 123/64; PULSE 67
--- NOTE | 2024-07-14 13:02 | Coding Query ---
CODING QUERY To promote full compliance with coding requirements relating to patient care, provider participation is requested in all cases of him coder uncertainty. Please assist us with the question(s) below: 07/12 Pulm PN 79-year-old male admitted with right upper quadrant pain and flank pain. He had incidental finding of interstitial lung disease. He has a small effusion but the pain is resolved with nonsteroidal anti-inflammatories and he appears to be improving clinically Recommendations: 1. Pneumonia: Continue l Augmentin with plans for 7-day course 2. Pleural effusion: Stable on imaging and exam. 2 small to sample. Recommend completing course of antibiotics and follow-up chest x-ray in 2 to 3 weeks. 3. Interstitial lung disease: Incidental finding. The patient reports he gets CT scans performed through [facility] on a regular basis. Correlation with those films would be appropriate. DS: Possible Bronchitis interstitial lung disease There was a question of pneumonia, possible aspiration with recent FERNIE. Coding Question(s): Due to multiple conflicting documentation, can you clarify if pneumonia has been ruled in our ruled out? [ x ] Pneumonia ruled in, likely aspiration Pls specify type (i.e. bacterial, aspiration, interstitial, other ) [ ] Pneumonia ruled out--bronchitis only [ ] Other Physician's Response(s): Thank you Loreta Oro Principal Diagnosis: "that condition established after study, to be chiefly responsible for occasioning the admission of the patient to the hospital for care." Co-Existing Principal Diagnosis: "when two or more diagnoses equally meet the criteria for principal diagnosis as determined by the circumstances of admission, diagnostic work up, and/or therapy provided, and the Alphabetic Index, Tabular List, or another coding guideline does not provide sequencing direction, any one of the diagnoses may be sequenced first." "When the physician has documented what appears to be a current diagnosis in the body of the record, but has not included the diagnosis in the final diagnostic statement, the physician should be asked whether the diagnosis should be added." ([facility] 2 QTR90. p3-4) FLAQUITO
== END 2024-07-12 11:49 | disposition home or self-care (01) | DRG 178 ==
LOC: ED 11:10 → SUATTDRO 18:09 → 2N 18:09

== ENCOUNTER 2024-07-19 14:30 | Inpatient (IN) ==
--- OUTSIDE RECORDS SUMMARY | 2024-07-19 14:34 | External Medical Summary | Summary of Care ---
Author Name Unknown Organization [facility] Address [address] [facility] [address] Phone [phone] Care Team Providers Care Ground Source Heat Pump Technician Name Role Phone Dk Lane MD Primary Care Provide r Reason for Visit * Reason Comments Outpatient Testing Encounter Details Date Type Department Care Team (Late st Contact Info) Description 07/18/2024 12:40 PM EDT Laboratory Laboratory [address] [place] [phone] [place] [address] Anemia, unspecified type; Hypomagnesemia Allergies Active Allergy Reactions Criticality Noted Date Comments Lisinopril Edema face/lips/tongue High 03/10/2016 Other reaction(s): swelling in his face documented as of this encounter (statuses as of 07/18/2024) Medications Medication Sig Dispensed Refills Start Date [...] 5 Active Apixaban 5 MG Oral Tablet (Eliquis)Indicatio [...] LDL below 70,S/P CABG x 4,Atherosclerosis of [place] coronary artery of [place] heart without angina pectoris TAKE ONE TABLET [...] MOUTH EVERY DAY 100 Capsule 2 07/07/2024 Active Acetaminophen 325 MG Oral Tablet (Tylenol) Take 1 Tablet by mouth every 6 hours as needed. Active Amoxicillin-Pot Clavulanate 875-125 MG Oral Tablet (Augmentin) Take 1 Tablet by mouth in the morning and 1 Tablet before bedtime. 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 Coronary atherosclerosis of [place] coronary sneha ry 06/09/2021 Paroxysmal atrial fibrillation [...] as of this encounter (statuses as of 07/18/2024) Resolved Problems Problem Noted Date Diagnosed Date Resolved Date Neuropathy 03/06/2023 03/06/2023 Degenerative disease of nerv ous system, unspecified 08/03/2022 10/04/2022 Prediabetes 01/02/2022 07/10/2024 Overview: Per Prediabetes protocol Dyslipidemia, goal to be determined 08/31/2009 01/18/2010 [...] as of this encounter (statuses as of 07/18/2024) Immunizations Name Administration Dates Next Due COVID-19 mRNA, LNP-s, No Pre serve, 2-Dose Series (Moderna) 12/03/2020,11/03/2020 COVID-19, MRNA-LNP, 23-24, P F, 30 MCG/0.3 mL, 12 YRS AND ABOVE, IM (PFIZER-Comirnaty) 07/12/2023 COVID-19, MRNA-LNP, 24-25, P R, 30MCG/0.3ML, IM, 12YRS AND ABOVE (Pfizer-Comirnaty) 06/23/2024 COVID-19, mRNA, LNP-s, PF, B ooster, [...] Care Team (Late st Contact Info) Description 07/18/2024 1:00 PM EDT Office Visit Family Medicine [address] [phone] MD [address] [place] [address] [place] [address] Arrived 08/08/2024 11:20 AM EST Office Visit Neurology [facility] [address] [facility] [place] [address] Susan Sheriff MD [address] [facility] [place] [address] 08/27/2024 1:00 PM EST Office Visit Cardiology, [facility] [address] [facility] [place] [address] Ursula Prince IV, MD [address] [place] [address] 09/09/2024 11:00 AM EST Nurse Only Ancillary [address] [place] [address] [place], Nurse Annual [address] [place] [address] 10/08/2024 10:00 AM EST Office Visit Sleep Disorders Ctr [facility] [address] [facility] [place] [phone] Sarah Byrd CRNP [address] [facility] [place] [address] 12/17/2024 11:45 AM EDT Office Visit Urology, [facility] [address] [facility] [place] [address] Marlo Prescott MD [address] [place] [address] 01/08/2025 10:00 AM EDT Office Visit Cardiology [address] [place] [address] Isauro King PA-C [address] [place] [address] 01/21/2025 11:00 AM EDT Office Visit Nephrology, [facility] [address] [place] [address] Shiv Kinney MD [address] [place] [address] 02/02/2025 6:20 PM EDT Office Visit Family Medicine [address] [place] [phone] MD [address] [place] [address] [place] [address] 02/11/2025 10:00 AM EDT Imaging Radiology [address], [place] [facility] [place] [address] Pending Results Name Type Priority Associated Diagnoses Date /Time CBC Lab Routine Anemia, unspecified type 07/18/2024 12:30 PM EDT MAGNESIUM Lab Routine Hypomagnesemia 07/18/2024 12:30 PM EDT Scheduled Procedures Name Priority Associated Diagnoses Date/Ti me COLONOSCOPY FLEXIBLE PROXIMAL DIAGNOSTIC Recall Colon cancer screening Health Maintenance Due Date Last Done Comments Adult Wellness Visit 09/07/2024 09/07/2023, 09/04/2022, 08/30/2021 Depression Screening 09/07/2024 09/07/2023 GFR 06/25/2025 06/25/2024, 10/26, 08/14/2023, Additional history exists Albumin/Creatinine Ratio 08/07/2025 022, 07/13/2011, 12/01/2010 DTap/Tdap Vaccines (3 - Td or Tdap) 03/15/2028 03/15/2018, 01/15/2008 Pneumococcal Vaccine: 65+ Years Completed 10/27/2014, 09/11/2011 Zoster Vaccines Completed 08/25/2020, 06/03/2020 Influenza Vaccine (FLU shot) Completed , 07/03/2023, 07/14/2022, Additional history exists COVID-19 Vaccine Completed 06/23/2024, , 07/12/2023, Additional history exists HPV (Gardasil) Vaccine Aged Out No lo nger eligible based on patient's age to complete this topic Hepatitis B Vaccine Aged Out No longe r eligible based on patient's age to complete this topic MENINGOCOCCAL (MENACTRA/MENVEO) Aged Out No longer eligible based on patient's age to complete this topic documented as of this encounter Medical Devices Implanted Type Area Neurological Surgery Teacher Device Identifier Shelf Expiration Date Model / Serial / Lot Lens Intraoc 17.5 - [id number] - [id number] Implanted:Qty : 1 on 03/24/2021 by Tomi Duarte MD at OR [facility] Right: Eye [employer] 06/23/2025 [id number] / [id number] / [id number] Lens Intraoc 17.0 - [id number] - [id number] Implanted:Qty : 1 on 03/31/2021 by Tomi Duarte MD at OR [facility] Left: Eye BAUSCH [employer] LOMB 10/24/2025 [id number] / [id number] / Clip Occl Atri Flex V 45mm - [id number] Implanted:Qty : 1 on 06/09/2021 by Lester Lazo MD at OR [facility] N/A: Heart ATR[employer]URE [id number] 02/23/2024 [id number] / / [id number] Suture Steel 6 B&S19 M654g - [id number] Implanted:Qty : 7 on 06/09/[address] [facility] N/A: Sternum JNJ : [employer] 01/21/2026 [id number] / / [id number] documented as of this encounter Visit Diagnoses Diagnosis Anemia, unspecified type Hypomagnesemia Disorders of magnesium metabolism documented in this encounter Advance Directives * Full Code (Latest Code Status on File) Date Activated Date Inactivated Comments 06/09/2021 7:33 PM 06/14/2021 4:55 PM This order r eflects the patients wishes and were consensually agreed upon. Care Teams Ground Source Heat Pump Technician Relationship Specialty Start Date End Date Dk Lane MD [address] [place] [address] [place] [phone] PCP - General Family Medicine 09/03/15 documented as of this encounter
--- OUTSIDE RECORDS SUMMARY | 2024-07-19 14:34 | External Medical Summary | Summary of Care ---
Author Name Unknown Organization [facility] Address [address] [place] [address] Phone [phone] Care Team Providers Care Event Marketing Assistant Name Role Phone Dk Lane MD Primary Care Provide r Encounter Details Date Type Department Care Team (Late st Contact Info) Description 07/11/2024 Population Health External Data Unspecified Department Allergies Active Allergy Reactions Criticality Noted Date Comments Lisinopril Edema face/lips/tongue High 03/10/2016 Other reaction(s): swelling in his face documented as of this encounter (statuses as of 07/11/2024) Medications Medication Sig Dispensed Refills Start Date [...] LDL below 70,S/P CABG x 4,Atherosclerosis of [place] coronary artery of [place] heart without angina pectoris TAKE ONE TABLET [...] EVERY DAY 100 Capsule 2 07/07/2024 Active documented as of this encounter (statuses as of 07/11/2024) Active Problems Problem Noted Date Diagnosed Date [...] CABG x 4 06/14/2021 Coronary atherosclerosis of [place] coronary sneha ry 06/09/2021 Paroxysmal atrial fibrillation [...] as of this encounter (statuses as of 07/11/2024) Resolved Problems Problem Noted Date Diagnosed Date [...] as of this encounter (statuses as of 07/11/2024) Immunizations Name Administration Dates Next Due COVID-19 mRNA, LNP-s, No Pre serve, 2-Dose Series (Moderna) 12/03/2020,11/03/2020 COVID-19, MRNA-LNP, 23-24, P F, 30 MCG/0.3 mL, 12 YRS AND ABOVE, IM (Zenkars-ComirnatBiodel) 07/12/2023 COVID-19, MRNA-LNP, 24-25, P R, 30MCG/0.3ML, IM, 12YRS AND ABOVE (CamPlex-ComirnatBiodel) 06/23/2024 COVID-19, mRNA, LNP-s, PF, B ooster, [...] No 09/07/2023 Does the household have a peak behavioral health serviceslar source of income? (Household - for ages [...] 08/08/2024 11:20 AM EST Office Visit Neurology [facility] [address] [place] [address] Susan Sheriff MD [address] [place] [address] 08/27/2024 1:00 PM EST Office Visit Cardiology, [facility] [address] [facility] [place] [address] Ursula Prince IV, MD [address] [place] [address] 09/09/2024 11:00 AM EST Nurse Only Ancillary [address] [place] [address] Stefan, Nurse [address] [place] [address] 10/08/2024 10:00 AM EST Office [facility] [place] [phone] Sarah Byrd CRNP [address] [place] [address] 12/17/2024 11:45 AM EDT Office Visit Urology, [facility] [address] [facility] [place] [address] Marlo Prescott MD [address] [facility] [place] [address] 01/08/2025 10:00 AM EDT Office Visit Cardiology [address] [place] [address] Isauro King PA-C [facility] [place] [address] 01/21/2025 11:00 AM EDT Office Visit Nephrology, [facility] [address] [place] [address] Shiv Kinney MD [address] [place] [address] 02/02/2025 6:20 PM EDT Office Visit Family Medicine [address] [place] [phone] Dk Lane MD [address] [place] [address] [place] [address] 02/11/2025 10:00 AM EDT Imaging Radiology [address] [place] [address] Scheduled Procedures Name Priority Associated Diagnoses Date/Ti [...] this encounter Medical Devices Implanted Type Area Greeting Card Editor Device Identifier Shelf Expiration Date Model / Serial / Lot Lens Intraoc 17.5 - [id number] - [id number] Implanted:Qty : 1 on 03/24/2021 by Tomi Duarte MD at OR [facility] Right: Eye [employer]OM[employer] 06/23/2025 [id number] / [id number] Lens Intraoc 17.0 - [id number] - [id number] Implanted:Qty : 1 on 03/31/2021 by Tomi Duarte MD at OR [facility] Left: Eye BAUSCH [employer] LOMB 10/24/2025 [id number] / [id number] 2 / Clip Occl Atri Flex V 45mm - [id number] Implanted:Qty : 1 on 06/09/2021 by Lester Lazo MD at OR [facility] N/A: Heart ATRICURE [id number] 02/23/2024 [id number] / / [id number] Suture Steel 6 B&S19 M654g - [id number] Implanted:Qty : 7 on 06/09/2021 at OR [facility] N/A: Sternum JNJ : [employer] 01/21/2026 [id number] / / [id number] documented as of this encounter Advance Directives * Full Code (Latest Code Status on File) Date Activated Date Inactivated Comments 06/09/2021 7:33 PM 06/14/2021 4:55 PM This order r eflects the patients wishes and were consensually agreed upon. Care Teams Event Marketing Assistant Relationship Specialty Start Date End Date Dk Lane MD [address] [place] [address] [place] [address] PCP - General Family Medicine 09/03/15 documented as of this encounter
--- OUTSIDE RECORDS SUMMARY | 2024-07-19 14:34 | External Medical Summary ---
Author Name Unknown Address Unknown Organization K01:[facility] [address] [place] [address] Laboratory Report Ordering Provider Test Date Status ISRA THOMASO 07/18/2024 12:30:56 Final Observation Date Value Abnormality Reference (Units ) Status Magnesium 07/18/2024 12:30:56 1.9 1.5-2.6 (m g/dL) Final Performing Location [facility] [address] [place] [address]
--- OUTSIDE RECORDS SUMMARY | 2024-07-19 14:34 | External Medical Summary | Summary of Care ---
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 Name Role Phone Dk Lane MD Primary Care Provide r Reason for Referral * Evaluate & Treat - Unlimited Visits (Within 10 days (routine)) - Authorized Specialty Diagnoses / Procedures Referred By Contgia t Referred To Contact Pulmonary Diseases / Pulmonary Diagnoses Pneumonia of right lower lobe due to infectious organism Pleural effusion on right Lung nodule Interstitial lung disease (HCC) Dk Lane MD [address] [place] [address] JENNIFFER Flanagan [id number] Referral ID Status Reason Start Date Expiration Date Visits Requested Visits Authorized [id number] Authorized Specialty Services Required 999 999 Question Answer Referral Priority Within 10 days (routine) Where should this appointment be scheduled? ising Primary Reason for Referral? Other Comments ?interstitial lung disease, pleural effusion * Precert (Within 10 days (routine)) - Authorized Specialty Diagnoses / Procedures Referred By Contgia t Referred To Contact Radiology Diagnoses Pneumonia of right lower lobe due to infectious organism Pleural effusion on right Lung nodule Procedures CT CHEST WO CONTRAST Dk Lnae MD [address] [place] [address] JENNIFFER Flanagan [id number] Referral ID Status Reason Start Date Expiration Date V isits Requested Visits Authorized [id number] Authorized 10/18/2024 999 999 Reason for Visit * Reason Onset Date Comments Hospital Follow-Up Hospital Follow-Up 07/18/2024 Encounter Details Date Type Department Care Team (Late st Contact Info) Description 07/18/2024 1:00 PM EDT Office Visit Family Medicine [address] [place] Sainz [phone] MD [address] [place] [address] JENNIFFER Flanagan [id number] Hospital discharge follow-up*; Pneumonia of right lower lobe due to infectious organism; Pleural effusion on right; Pleurisy; Lung nodule; Nephrolithiasis; Interstitial lung disease (HCC); Essential hypertension with goal blood pressure less than 140/90; Paroxysmal atrial fibrillation (HCC); S/P Maze operation for atrial fibrillation; Cerebellar ataxia (HCC) Allergies Active Allergy Reactions Criticality Noted Date [...] 2+Multi Vit Oral Capsule Take by mouth. Acti ve Nitroglycerin 0.4 MG Sublingual Tablet Sublingual (Nitrostat) Place 1 Tab under the tongue every 5 minutes as needed for Pain, Chest. up to 3 doses in 15 minutes 25 Tab 11 1 Active Aspirin 81 MG Oral Tablet Chewable Take 1 Tab by mouth daily. 30 Tab 11 1 Active Vitamin B12 500 MCG Oral Tablet Take by mouth 1 Tablet daily . 2 Active B-6 500 MG Oral Tablet Take by mouth 1 Tablet daily . Active Furosemide 40 MG Oral Tablet (Lasix)Indicatio ns:Essential hypertension with goal blood pressure less than 140/90 TAKE ONE TABLET BY MOUTH EVERY DAY 100 Tablet 3 3 09/20/20 24 Active Losartan Potassium 100 MG Oral Tablet (Cozaar)Indicati ons:Essential hypertension with goal blood pressure less than 140/90 TAKE ONE TABLET BY MOUTH EVERY MORNING 100 Tablet 3 3 10/12/19 25 Active Apixaban 5 MG Oral Tablet (Eliquis)Indicat ions:Paroxysmal atrial fibrillation (HCC) TAKE ONE TABLET BY MOUTH TWICE A DAY 180 Tablet 3 3 08/20/20 24 Active hydrALAZINE HCl 25 MG Oral Tablet (Apresoline)Clau cations:Essentia l hypertension with goal blood pressure less than 140/90 Take 1 Tablet by mouth in the morning and 1 Tablet at noon and 1 Tablet before bedtime. 270 Tablet 3 3 Active Potassium Chloride Shawna ER 20 MEQ Oral Tablet Extended ReleaseIndicatio ns:Hypokalemia TAKE ONE TABLET BY MOUTH EVERY DAY 100 Tablet 3 4 11/15/19 25 Active Atorvastatin Calcium 40 MG Oral Tablet (Lipitor)Indicat ions:Dyslipidemi a, goal LDL below 70 Take 1 Tablet by mouth daily. 100 Tablet 3 4 Active 27-1 MG Oral TabletIndication s:Dyslipidemia, goal LDL below 70,S/P CABG x 4,Atherosclerosi s of [place] coronary artery of [place] heart without angina pectoris TAKE ONE TABLET BY MOUTH EVERY DAY IN THE MORNING 90 Tablet 3 4 12/03/19 25 Active Metoprolol Succinate ER 25 MG Oral Tablet Extended Release 24 Hour (toPROL XL)Indications:P aroxysmal atrial fibrillation (HCC),Essential hypertension with goal blood pressure less than 140/90 TAKE ONE TABLET BY MOUTH EVERY DAY IN THE MORNING 100 Tablet 3 4 02/28/20 25 Active Repatha SureClick 140 MG/ML Subcutaneous Solution Auto-injector (evolocumab) Inject 140 mg (1 pen) under the skin every 14 days. Remove from refrigerator 30 minutes prior to injection. 6 mL 3 4 Active amLODIPine Besylate 5 MG Oral Tablet (Norvasc)Indicat ions:Essential hypertension with goal blood pressure less than 140/90 Take 1 Tablet by mouth in the morning. 100 Tablet 1 4 Active Magnesium 500 MG Oral Capsule Take 1 Capsule by mouth in the morning. Active Omeprazole 20 MG Oral Capsule Delayed Release (PriLOSEC)Indica tions:Gastroesop hageal reflux disease TAKE ONE CAPSULE BY MOUTH EVERY DAY 100 Capsule 2 4 07/07/20 Active Acetaminophen 325 MG Oral Tablet (Tylenol) Take 1 Tablet by mouth every 6 hours as needed. Active Amoxicillin-Pot Clavulanate 875-125 MG Oral Tablet (Augmentin)Indic ations:Pneumonia of right lower lobe due to infectious organism Take 1 Tablet by mouth in the morning and 1 Tablet before bedtime. 14 Tablet Active Amoxicillin-Pot Clavulanate 875-125 MG Oral Tablet (Augmentin) Take 1 Tablet by mouth in the morning and 1 Tablet before bedtime. 07/18/20 Discontinued Amoxicillin-Pot Clavulanate 875-125 MG Oral Tablet (Augmentin) Take 1 Tablet by mouth in the morning and 1 Tablet before bedtime. Do all this for 7 days. 14 Tablet 4 07/18/20 Discontinued(Re fill) documented as of this encounter (statuses as of 07/18/2024) Active Problems Problem Noted Date Diagnosed Date Lung nodule 07/18/2024 Nephrolithiasis 07/18/2024 Slac (scapholunate advanced collapse) of wrist, right [...] CABG x 4 06/14/2021 Coronary atherosclerosis of [place] coronary sneha ry 06/09/2021 Paroxysmal atrial fibrillation [...] on file documented as of this encounter Last Filed Vital Signs Vital Sign Reading Time Taken Comments Blood Pressure 108/56 07/18/2024 1:00 PM EDT Pulse 92 07/18/2024 1:00 PM EDT Temperature 36.7 C (98 F) 07/18/2024 1:00 PM EDT Respiratory Rate - - Oxygen Saturation 95% 07/18/2024 1:00 PM EDT Inhaled Oxygen Concentration - - Weight 74.8 kg (165 lb) 07/18/2024 1:00 PM EDT Height 169.5 cm (5' 6.75") 07/18/2024 1:00 PM ED T Body Mass Index 26.04 07/18/2024 1:00 PM EDT documented in this encounter Functional Status Functional Status Response Date of Assess ment Do you have serious difficul ty walking or climbing stairs? (5 years old or older) No 06/10/2021 documented as of this encounter Patient Instructions * Patient Instructions* Dk Lane MD - 07/18/2024 1:07 PM EDT Taking Medicine Safely Medicine is given to help treat or prevent illness. But if you don't take it correctly, it might not help. It might even harm you. Your doctor or pharmacist can help you learn the right way to take your medicine. Listed below are some tips to help you take medicine safely. Safety Tips Have a routine for taking each medicine. Make it part of something you do each day, such as brushing your teeth or eating a meal. When you go to the hospital or your doctor's office, bring all your current medicines in their original boxes or bottles. If you can't do that, bring an up-to-date list of your medicines. Do not stop taking a prescription medicine unless your doctor tells you to. Doing so could make your condition worse. Do not share medicines. Let your doctor and pharmacist know of any allergies you have. Taking prescription medicines with alcohol, street drugs, herbs, supplements, or even some xwyu-tqb-yztnqtt medicines can be harmful. Talk to your doctor or pharmacist before using any of these things while taking a prescription medicine. When filling your prescriptions, try using the same pharmacy for all your medicines. If not, let the pharmacist know what medicines you are already on. Keep medicines out of the reach of children and pets. Do not use medicine that has or that doesn't look or smell right. Get rid of it properly. To find out the right way to get rid of medicine: Call your [facility] or [facility]'s household trash and recycling service and ask if a drug take-back program is available in your community. Call your local pharmacy and ask the right way to get rid of the medicine. Go to http://www.fda.gov/ForConsumers/ConsumerUpdates/kvr169840 to learn how to get rid of medicines safely. Using Generic Medicines Medicines have brand names and generic (chemical) names. When a medicine is first made, it is sold only under its brand name. Later, it can be made and sold as a generic. Generic medicines cost less than brand-name medicines and most work just as well. Most people can use the generic medicine instead of the brand-name medicine, unless their doctor says otherwise. [id number] [facility], [address] [place] [address]. All rights reserved. This information is not intended as a substitute for professional medical care. Always follow your healthcare professional's instructions. Coping with Your Diagnosis of a Chronic Health Condition If you have a chronic health condition, you have a problem that may not go away over time. Heart disease, asthma, arthritis, and diabetes are just a few of the chronic conditions that exist. Right now, these conditions have no known cure. But you can take an active role in managing your health. Coping with Your Diagnosis If you've just learned about your health condition, you may be angry, depressed, or afraid. Or you might feel relieved just to know what's wrong. Even if you've known about your health problem for a while, adjusting to it can be hard. But learning about your condition can help you cope. Look for books at your local library. If you have access to a computer, check the Internet. Or contact a group that focuses on your specific problem. Accepting Change Change is hard for most people. Yet right now you may be facing many changes. What you eat or the way you work may change. Your moods, and even your symptoms, might vary from day to day. Although it isn't easy, learning to accept change can help you feel more in control. Taking Control Feeling you have control can make living with your condition easier. Discuss treatment options withyour health care provider. The more you know, the more active you can be in your care. Moving Forward You may wonder whether you will be able to do the things you've always done. That depends on your age, the condition you have, and your goals. To make the most of each day, try to build caring relationships, be active, and eat right. Also, do your best to keep a sense of humor. [facility], [address] [place] [address]. All rights reserved. This information is not intended as a substitute for professional medical care. Always follow your healthcare professional's instructions. Taking an Active Role in Your Medicines Take the time to learn about your medicine. For instance, why are you taking it? What does it do? Work with your doctor or other health care providers to get the answers you need. Talk to your pharmacist about how to take each medicine, and ask for a fact sheet on each one. Ask Questions About Your Medicine What is the name of the medicine? Why do I need to take it? When should I take it? How should I take it: with water? with food? on an empty stomach? How much do I take? What do I do if I miss a dose? What side effects could it cause and which ones should I call the doctor about? Are there any foods or medicines I should avoid while taking this medicine? Keeping track of your medications? Name of medicine: Taken for: Dose: Time(s) to take it: Take an Active Role Fill all your prescriptions at the same pharmacy. This keeps your medicine history in one place. Talk to the pharmacist. Make sure you understand how to take each medicine. Ask for a fact sheet about each one. Tell your doctor and pharmacist about all the prescription and mnni-ebd-qrlrpoa medicines you take.This includes vitamins and herbal remedies. Tell your doctor and pharmacist if you have any medical conditions or allergies to any medicine or food, or if you are or . Keep a list of all your medicines. Use the sample to the right as a guide for the type of information needed. Edison [facility], [address] [place] [address]. All rights reserved. This information is not intended as a substitute for professional medical care. Always follow your healthcare professional's instructions. documented in this encounter Progress Notes * Dk Lane MD - 07/18/2024 1:07 PM EDT SUBJECTIVE: Jamarcus Marinelli is a 79 year old male. Chief Complaint Patient presents with Hospital Follow-Up Hospital Follow-Up Recent Admission: Patient was recently admitted to [facility] on 07/08/24. The date of discharge was 07/12/24. Discharge report received and reviewed. HPI: Brief Clinical History Mr. Marinelli is a 79 year old male last seen in [facility] on 02/01/[address] He has a h/o the following chronic conditions indicated on the problem list: Chronic Conditions Cerebellar ataxia (HCC) Paroxysmal atrial fibrillation (HCC) Admitted to [facility] 07/08/24-07/12/24 with right sided chest pain right under the anterior ribs and shortness of breath for about 1 day. He had been coughing a little bit before the pain started. The pain got severe and was directed to the ED. Chest CTA on 07/08/24 was negative for PE and showed a left lower lobe pulmonary nodule measuring 8 mm and interstitial lung disease. Follow-up chest CT in 3 months recommended. He had RUQ ultrasound to investigate the RUQ pain and was negative. CT of the abdomen and pelvis noted multiple lower lung nodules measuring up to 9 mm, question superimposed airspace consolidation at the right lung base and trace pleural fluid in the right, and bilateral nephrolithiasis. Patient had another chest CT on 07/10/24, which showed increase in sizes of a small right pleural effusion with associated fissural fluid and increased right lower lobe airspace opacity withslight loss favoring atelectasis or pneumonia and a 6 mm subpleural left lower lobe nodule and 3 month follow-up chest CT again recommended. He was seen by cardiology and was noted to be in rate contr olled atrial fibrillation on telemetry. He had recent FERNIE done as outpatient to assess MAZE procedure and it demonstrated adequate occlusion of the left atrial appendage. His Eliquis was continued. Patient was admitted and treated for right lower lobe pneumonia with Unasyn, which was transitionedto doxycycline and then discharged on Augmentin for 6 more days. He was seen by pulmonary, who recommended outpatient pulmonary follow-up for the interstitial lung disease and lung nodule follow-up with comparison made to chest CTs at [facility] to see if short-term follow-up is needed. Effusion was not large enough to drain. Patient did improve and was discharged on 6 days of Augmentin, which he completed last night. states he has had a fever all week, although patient did not let her check his temperature to verify. He has been taking Tyelnol for the fever and right sided chest pain, which is improved. Has not checked his temperature but has had sweats. Is still coughing and coughing up some phlegm. Patient was recommended to follow-up with cardiology and urology, which he does regularly and has follow-up appointments scheduled. He was also recommended to follow-up with pulmonary. Would like to be seen at [facility]. Patient Active Problem List Diagnosis IMPOTENCE, ORGANIC ORIGN ADVANCE DIRECTIVE INFORMATION Essential hypertension with goal blood pressure less than 140/90 Dyslipidemia, goal LDL below 130 Hypercalcemia Hypertriglyceridemia Lipoma of right upper extremity Paroxysmal atrial fibrillation (HCC) Cervical spinal stenosis Coronary atherosclerosis of [place] coronary artery S/P CABG x 4 S/P Maze operation for atrial fibrillation Cerebellar ataxia (HCC) Chronic bilateral low back pain without sciatica Foreign body of lower leg, left, subsequent encounter Mild aortic regurgitation Mild mitral regurgitation 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 Coenzyme Q10 (CO Q 10) 100 MG CAPS Take 200 mg by mouth. PreserVision AREDS 2+Multi Vit Oral Capsule Take by mouth. Nitroglycerin 0.4 MG Sublingual Tablet Sublingual (Nitrostat) Place 1 Tab under the tongue every 5 minutes as needed for Pain, Chest. up to 3 doses in 15 minutes 25 Tab 11 Aspirin 81 MG Oral Tablet Chewable Take 1 Tab by mouth daily. 30 Tab 11 Vitamin B12 500 MCG Oral Tablet Take by mouth 1 Tablet daily . B-6 500 MG Oral Tablet Take by mouth 1 Tablet daily . Furosemide 40 MG Oral Tablet (Lasix) TAKE ONE TABLET BY MOUTH EVERY DAY 100 Tablet 3 Losartan Potassium 100 MG Oral Tablet (Cozaar) TAKE ONE TABLET BY MOUTH EVERY MORNING 100 Tablet 3 Apixaban 5 MG Oral Tablet (Eliquis) TAKE ONE TABLET BY MOUTH TWICE A DAY 180 Tablet 3 hydrALAZINE HCl 25 MG Oral Tablet (Apresoline) Take 1 Tablet by mouth in the morning and 1 Tablet at noon and 1 Tablet before bedtime. 270 Tablet 3 Potassium Chloride Shawna ER 20 MEQ Oral Tablet Extended Release TAKE ONE TABLET BY MOUTH EVERY DAY 100 Tablet 3 Atorvastatin Calcium 40 MG Oral Tablet (Lipitor) Take 1 Tablet by mouth daily. 100 Tablet 3 27-1 MG Oral Tablet TAKE ONE TABLET BY MOUTH EVERY DAY IN THE MORNING 90 Tablet 3 Metoprolol Succinate ER 25 MG Oral Tablet Extended Release 24 Hour (toPROL XL) TAKE ONE TABLET BY MOUTH EVERY DAY IN THE MORNING 100 Tablet 3 Repatha SureClick 140 MG/ML Subcutaneous Solution Auto-injector (evolocumab) Inject 140 mg (1 pen) under the skin every 14 days. Remove from refrigerator 30 minutes prior to injection. 6 mL 3 amLODIPine Besylate 5 MG Oral Tablet (Norvasc) Take 1 Tablet by mouth in the morning. 100 Tablet 1 Magnesium 500 MG Oral Capsule Take 1 Capsule by mouth in the morning. Omeprazole 20 MG Oral Capsule Delayed Release (PriLOSEC) TAKE ONE CAPSULE BY MOUTH EVERY DAY 100 Capsule 2 Acetaminophen 325 MG Oral Tablet (Tylenol) Take 1 Tablet by mouth every 6 hours as needed. Amoxicillin-Pot Clavulanate 875-125 MG Oral Tablet (Augmentin) Take 1 Tablet by mouth in the morning and 1 Tablet before bedtime. 14 Tablet 0 No current facility-administered medications for this visit. Current and discharge medications have been reconciled. Review of patient's allergies indicates: Allergen Reactions Lisinopril Edema face/lips/tongue Other reaction(s): swelling in his face OBJECTIVE: BP 108/56 | Pulse 92 | Temp 36.7 C (98 F) (Tympanic) | Ht 1.695 m (5' 6.75") | Wt 74.8 kg (165 lb) | SpO2 95% | BMI 26.04 kg/m | BSA 1.88 m Review Of Systems: Skin: pt denies, new or changing moles, pigmentation change, rash, scaling, itching, bruising, lumps or bumps, hair changes, nail changes Eyes: negative Ears/Nose/Throat: +hard of hearing Respiratory: +as per hpi Cardiovascular: +atrial fibrillation Gastrointestinal: pt. denies:, abdominal pain, bloating or excess gas, dysphagia, nausea, heartburn, blood in stool or black stools, constipation or change in bowel habits, diarrhea Genitourinary: +nephrolithiasis Musculoskeletal: cerebellar ataxia Neurologic: +cerebellar ataxia Psychiatric: pt denies:, sleep disturbance, anxiety, nervousness, and depression Hematologic/Lymphatic/Immunologic: pt denies:, immunodeficiency, anemia, bruising, bleeding disorder, chills, and weight loss Endocrine: pt denies:, thyroid disorder, cold intolerance, heat intolerance, and diabetes PHYSICAL EXAM: General: alert, no distress, well nourished, well developed, and seated in a wheelchair Head: Normocephalic, No masses, lesions, tenderness or abnormalities Eye Exam: PERRLA, extraocular movements intact, conjunctiva are pink and non- injected, sclera clear Ears: External ears normal, Canals clear, TM's Normal Nose: no mucosal erythema, no mucosal edema, no purulent discharge Oropharynx: no exudate, no erythema, lips, buccal mucosa, and tongue normal, and mucous membranes are moist Neck: supple, no adenopathy, no bruits Heart: no gallops and irregularly irregular Lungs: chest symmetric with normal AP diameter, no chest deformities noted, no chest wall tenderness, +decreased lung sounds in the right base without wheezing or rhonchi Abdomen: abdomen soft, non-tender, normal bowel sounds, and no masses or organomegaly Extremities: no clubbing, no cyanosis, 1+ edema bilateral lower extremities Neuro Exam: alert & oriented x 3 with fluent speech, +spasticity of lower extremities ASSESSMENT: Hospital discharge follow-up (Primary) - DISCH MED RECON CUR MED LIS Pneumonia of right lower lobe due to infectious organism--still with productive cough and subjective fevers. Extend Augmentin for another week. Check CXR in 2 weeks in 2 weeks. Can be done in office.Has mildly diminished breath sounds in right base. - XR CHEST 2 VIEWS; Future; Expected date: 08/01/2024 - CT CHEST WO CONTRAST; Future; Expected date: 10/18/2024 - PULMONARY REFERRAL OP - Amoxicillin-Pot Clavulanate 875-125 MG Oral Tablet (Augmentin); Take 1 Tablet by mouth in the morning and 1 Tablet before bedtime. Pleural effusion on right--check follow-up chest X-ray in 2 weeks as above. Has diminished breath sounds on the right. - XR CHEST 2 VIEWS; Future; Expected date: 08/01/2024 - CT CHEST WO CONTRAST; Future; Expected date: 10/18/2024 - PULMONARY REFERRAL OP Pleurisy--pain improving. Appears to be cause of the right sided chest pain. Lung nodule--left lower lung nodule was noted to be [address] of abdomen and pelvis, 8 mm on chestCTA and [address] done 2 days after admission. Has been stable at 5 mm at [facility]. Will check follow-up chest CT in 3 months to assess for changes in the size of the nodule as well as follow-up of pneumonia and pleural effusion. Refer to pulmonary as above. - CT CHEST WO CONTRAST; Future; Expected date: 10/18/2024 - PULMONARY REFERRAL OP Nephrolithiasis--no flank pain or hydronephrosis. Follows with urology. Interstitial lung disease (HCC)--new finding on chest CTs. Refer to pulmonary - PULMONARY REFERRAL OP Essential hypertension with goal blood pressure less than 140/90--controlled Paroxysmal atrial fibrillation (HCC)--s/p MAZE. Remains on Eliquis. Follow-up with cardiology as scheduled. S/P Maze operation for atrial fibrillation Cerebellar ataxia (HCC)--follow-up with neurology as scheduled. Has poor mobility and is even more weak now. Home health referral for PT. Follow Up: Return as scheduled. PLAN: Continue present medication(s): Begin medication(s): Augmentin 875/125 mg twice daily for 7 more days. Is still coughing up a lot of phlegm and has had subjective fevers this week. Recommend checking temperature if he feels fever coming back again. Study(ies) ordered: Chest x-ray in [address] without contrast in 3 months. f Will also check chest CT without contrast in 3 months to follow-up lung nodule. The nodule has been measuring 5mm on [facility] testing but most have been with contrast for aneurysm monitoring. Referral(s) to: Pulmonary regarding lung nodules and new finding of interstitial lung disease as well right pleural effusion. Patient education: Discussed hospitalization, pneumonia, pleural effusions, upcoming testing at length. Follow-up with cardiology and urology as already scheduled. Home health was ordered 07/15/24 for nursing and PT. Has been more weak and tired since the admission and has poor mobility. Would like to see Parveen COPELAND. Follow up as scheduled. I spent a total of 40-54 minutes (exact time 50 mins) minutes on the date of service in preparation, delivery, and documentation of the care provided to Jamarcus Marinelli excluding any time spent in performance of separately billed services. Dk Lane MD documented in this encounter Nursing Notes * Jeimy De La Rosa LPN - 07/18/2024 12:56 PM EDT Hospital follow up [facility] 1 week ago Pneumonia- finished antibiotic Still had fever while taking antibiotic Had sweats when fever broke Something viral ontop of pneumonia? Has some SOB at times documented in this encounter Plan of Treatment Upcoming Encounters Date Type Department Care Team (Late st Contact Info) Description 08/08/2024 11:20 AM EST Office Visit Neurology [facility] [address] [facility] [place] [address] Susan Sheriff MD 200 [place] [address] 08/27/2024 1:00 PM EST Office Visit Cardiology, [facility] [address] [place] [address] Ursula Prince IV, MD [address], [place] [id number] 09/03/2024 1:00 PM EST Office Visit Pulmonary Medicine, [facility] [address] [place] [address] Akash Casas MD [address] [place] [address] 09/09/2024 11:00 AM EST Nurse Only Ancillary [address] [place] [phone] Stefan Nurse Annual [address] [place] [address] 10/08/2024 10:00 AM EST Office Visit Sleep Disorders Ctr [facility] [address] [facility] [place] [phone] Sarah Byrd CRNP [address] [place] [address] 10/20/2024 12:00 PM EST [facility] [address] [facility] [place] [address] 12/17/2024 11:45 AM EDT Office Visit Urology, [facility] [address] [facility] [place] [address] Marlo Prescott MD 27 [facility] [place] [address] 01/08/2025 10:00 AM EDT Office Visit Cardiology [address] [place] [address] Isauro King PA-C 132 [facility] [place] [address] 01/21/2025 11:00 AM EDT Office Visit Nephrology, [facility] [address] [place] [address] Shiv Kinney MD [address] [place] [address] 02/02/2025 6:20 PM EDT Office Visit Family Medicine [address] [place] [phone] Dk [address] MD [address] [place] [address] [place] [address] 02/11/2025 10:00 AM EDT Imaging Radiology [facility] 1st [facility], [address] [place] [address] Scheduled Orders Name Type Priority Associated Diagnoses Orde r Schedule XR CHEST 2 VIEWS Medical Imaging Routine Pneumonia of right lower lobe due to infectious organism Pleural effusion on right Expected: 08/01/2024, Expires: 08/18/2025 CT CHEST WO CONTRAST Medical Imaging Routine Pneumonia of right lower lobe due to infectious organism Pleural effusion on right Lung nodule Expected: 10/18/2024, Expires: 08/18/2025 Scheduled Procedures Name Priority Associated Diagnoses Date/Ti me COLONOSCOPY FLEXIBLE PROXIMAL DIAGNOSTIC Recall Colon cancer screening Scheduled Referrals Name Type Priority Associated Diagnoses Orde r Schedule PULMONARY REFERRAL OP Referral Within 10 days (routine) Pneumonia of right lower lobe due to infectious organism Pleural effusion on right Lung nodule Interstitial lung disease (HCC) Ordered: 07/18/2024 Health Maintenance Due Date Last Done Comments [...] this encounter Medical Devices Implanted Type Area Commercial Lending Assistant Device Identifier Shelf Expiration Date Model / Serial / Lot Lens Intraoc 17.5 - [id number] - [id number] Implanted:Qty : 1 on 03/24/2021 by Tomi Duarte MD at [facility] Right: Eye [employer] 06/23/2025 [id number] / [id number] / [id number] Lens Intraoc 17.0 - [id number] - [id number] Implanted:Qty : 1 on 03/31/2021 by Tomi Duarte MD at OR [facility] Left: Eye [employer] 10/24/2025 [id number] / [id number] 2 / Clip Occl Atri Flex V 45mm - [id number] Implanted:Qty : 1 on 06/09/2021 by Lester Lazo MD at [place] [facility] N/A: Heart [employer] [id number] 02/23/2024 [id number] / / [id number] Suture Steel 6 B&S19 M654g - [id number] Implanted:Qty : 7 on 06/09/2021 at [place] [facility] N/A: Sternum JNJ : [employer] 01/21/2026 [id number] / / [id number] documented as of this encounter Visit Diagnoses Diagnosis Hospital discharge follow-up- Primary Other follow-up examination Pneumonia of right lower lobe due to infectious organism Pleural effusion on right Unspecified pleural effusion Pleurisy Pleurisy without mention of effusion or current tuberculosis Lung nodule Solitary pulmonary nodule Nephrolithiasis Calculus of kidney Interstitial lung disease (HCC) Postinflammatory pulmonary fibrosis Essential hypertension with goal blood pressure less than 140/90 Paroxysmal atrial fibrillation (HCC) Atrial fibrillation S/P Maze operation for atrial fibrillation Other postprocedural status Cerebellar ataxia (HCC) Other cerebellar ataxia documented in this encounter Advance Directives * Full Code (Latest Code Status on File) Date Activated Date Inactivated Comments 06/09/2021 7:33 PM 06/14/2021 4:55 PM This order r eflects the patients wishes and were consensually agreed upon. Care Teams Lapping Machine Set Up Operator Relationship Specialty Start Date End Date Dk Lane MD [address] [place] [address] [place] [phone] PCP - General Family Medicine 09/03/15 documented as of this encounter
--- OUTSIDE RECORDS SUMMARY | 2024-07-19 14:34 | External Medical Summary ---
Author Name Unknown Address Unknown Organization K01:[facility] - [address] [place] [address] Ave[address] [facility] [address] Laboratory Report Ordering Provider Test Date Status ROBERT THOMAS 07/18/2024 12:30:56 Final Observation Date Value Abnormality Reference (Units ) Status WBC, Total 07/18/2024 12:30:56 22.51 Above high normal 4.00-10.80 (K/uL) Final RBC 07/18/2024 12:30:56 3.29 4.50-5.25 (M/uL) Final Hemoglobin 07/18/2024 12:30:56 10.8 Below low normal 14.0-16.8 (g/dL) Final HCT 07/18/2024 12:30:56 33.8 Below low normal 40.0-48.4 (%) Final MCV 07/18/2024 12:30:56 102.7 82.0-99.5 (fL) Final MCH 07/18/2024 12:30:56 32.8 27.0-34.0 (pg) Final MCHC 07/18/2024 12:30:56 32.0 32.0-36.0 (g/dL) Final RDW 07/18/2024 12:30:56 13.0 11.5-15.5 (%) Final Platelets 07/18/2024 12:30:56 370 140-400 (K/uL) Final MPV 07/18/2024 12:30:56 9.6 6.6-11.1 (fL) Final Nucleated erythrocytes/100 leukocytes [Ratio] in Blood by Automated count 07/18/2024 12:30:56 0 <=0 (/100 WBCs) Final Performing Location [facility] - [address] [facility] [address]
--- NOTE | 2024-07-19 15:29 | XRay Report ---
XR chest 1V not portable HISTORY: 79 years-old Male Sepsis acute sepsis COMPARISON: 07/12/2024 TECHNIQUE: AP view of the chest FINDINGS: Cardiac silhouette is enlarged. Median sternotomy. No pneumothorax. Increased size of the layering ri ght pleural effusion with right basilar consolidation. Mild chronic interstitial reticular opacities compatible with fibrosis. IMPRESSION: 1. Increased size of the layering right pleural effusion with progressive right basilar consolidation . 2. Cardiomegaly without pulmonary edema. ACT 112: Negative or not required by law. The above report was generated using voice recognition software. It may contain grammatical, syntax o r spelling errors. Electronically signed by: Franco Shrestha M.D. 07/19/2024 3:28 PM
[2024-07-19] MEDS: ACETAMINOPHEN 1,000 MG/100 ML VIAL IV STA (15:32)
[2024-07-19 15:39] LABS: Basophils # (auto) 0.08 K/uL (0.00-0.20); Basophils % (auto) 0.4 %; Eosinophils # (auto) 0.25 K/uL (0.00-0.50); Eosinophils % (auto) 1.2 %; Immature Granulocytes # (auto) 0.82 K/uL (0.01-0.20); Immature Granulocytes % (auto) 3.8 %; Lymphocytes # (auto) 1.09 K/uL (1.20-3.40); Mean Corpuscular Hemoglobin 32.4 pg (25.0-34.0); Mean Corpuscular Hgb Conc 33.3 g/dL (32.0-36.0); Mean Corpuscular Volume 97.1 fL (80.0-100.0); Mean Platelet Volume 9.4 fL (9.4-12.4); Monocytes # (auto) 1.59 K/uL (0.11-0.59); Monocytes % (auto) 7.4 %; Neutrophils % (auto) 82.2 %; Platelet Count 375 K/uL (130-400); RDW Coefficient of Variation 13.1 % (11.5-14.5); RDW Standard Deviation 46.5 fL (36.4-46.3); Red Blood Count 3.09 M/uL (4.70-6.10); White Blood Count 21.63 K/ul (4.8-10.8)
[2024-07-19 15:52] LABS: Albumin Globulin Ratio 0.8 (0.9-2); Albumin Level 3.2 gm/dl (3.4-5.0); BUN Creatinine Ratio 26.4 (10-20); Bilirubin,Total 0.6 mg/dl (0.2-1.0); Calcium 9.5 mg/dl (8.6-10.3); Creatinine Clr Calc Pharmacy 107.4 ml/min; Magnesium 1.5 mg/dl (1.7-2.4); Potassium 4.4 mmol/L (3.5-5.1); Total Protein 7.2 gm/dl (6.0-8.3)
--- NOTE | 2024-07-19 15:56 | Emergency Department Note ---
Impression & Plan Pneumonia, Sepsis, Leukocytosis, Fever ED Provider Note HISTORY OF PRESENT ILLNESS: Patient is a 79-year-old male presenting with right lower chest pain and fevers. Patient reports that he was recently admitted to the hospital with pneumonia. 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 He had baseline lab work done for his cardiology appointment. He has had fevers intermittently over the last week. He finished his course of antibiotics 48 hours ago. He states that he has been having night sweats. Denies any significant cough. He does report some shortness of breath with minimal exertion. Denies any abdominal pain, nausea or vomiting. He has had some right lower chest pain. ROS: as above PHYSICAL EXAM: Constitutional: Patient appears in no acute distress. HENT: Head: Normocephalic and atraumatic. Eyes: EOMI, PERRL Mouth/Throat: Mucous membranes moist. Neck: Trachea midline. Neck supple. Cardiovascular: Tachycardic with irregularly irregular rhythm. No murmurs, rubs or gallops. Intact distal pulses. Pulmonary/Chest: No respiratory distress. Breath sounds clear and equal bilaterally. No wheezes or rales. Abdominal: Abdomen soft, no tenderness, rebound or guarding. Musculoskeletal: No edema, tenderness or deformity noted. Skin: Warm and dry. No rash, erythema, pallor or cyanosis Psychiatric: Appropriate mood and affect for situation. Neurological: Alert and keenly responsive. CN II-XII grossly intact, moving all extremities equally and fully. MDM: - Vitals signs showed tachycardia and fever - History obtained via patient. History as above. - Chronic conditions affecting care: CAD (s/p CABG); HTN; HLD; Afib - Differential diagnoses include, but are not limited to: Sepsis; UTI; pneumonia; viral syndrome; dehydration - Order placed for continuous cardiac monitoring. At this time, monitor showed rate of 93 bpm with irregular rhythm, per my interpretation. - External medical records reviewed. Discharge summary dated 07/12/2024 was reviewed. Patient was admitted that time for interstitial lung disease and right lower quadrant abdominal pain. - EKG interpreted by myself showed atrial fibrillation. Rate 97 bpm. QT 356. No acute ischemic changes. - Laboratory workup interpreted by myself showed leukocytosis (WBC 21.63) with neutrophilic predominance; normal PT/INR; hyponatremia (Na 132); hypomagnesemia (Mg 1.5); normal troponin; normal lactate; normal procalcitonin; transaminitis (AST 58; ALT 108) - Viral respiratory panel negative - CXR shows worsening right lower lobe consolidation, per my interpretation. - Blood cultures obtained - Patient given 1g IV tylenol for fever in ER. Given IV vancomycin and cefepime for antibiotic coverage, given patient's recent hospitalization. - Discussion was had with social work case manager about patient's case and need for admission - Hospitalist, Dr. Branch, consulted for admission - Patient admitted to [facility] for further evaluation and management. ASSESSMENT AND PLAN: Diagnosis: Pneumonia; sepsis; leukocytosis; fever Plan: admit Past Med/Surg History Problem List (Updated 07/19/24 @ 17:00 by Tracie Joseph MD) Fever (Acute) Leukocytosis (Acute) Sepsis (Acute) Pneumonia (Acute) Permanent atrial fibrillation Nephrolithiasis Interstitial lung disease Right lower lobe pneumonia Pleurisy Acute right flank pain (Acute) Encounter for pre-operative examination Hypercalcemia Medical History CAD (coronary artery disease) CABG x 4 (2020) Follows with [facility] cardio Peripheral neuropathy Sleep apnea Home study showed he was having periods of apnea. Formal sleep study recommended (not done yet) Atrial fibrillation Taking Eliquis Hypertension Hyperlipidemia Surgical History Hx of cardiac catheterization (04/2021) 04/2021 > CABG x4 (05/2021) History of tonsillectomy History of inguinal hernia repair x2, right side History of cataract surgery (2020) Bilateral History of cystoscopy History of colonoscopy History of coronary artery bypass graft CABG x4 (2020) Family History Mother Hypertension Father Viral encephalitis Brother Coronary heart disease Other History of coronary artery bypass graft Social History Smoking Status: Never smoker Tobacco Type: Smokeless Tobacco (Dip or Chew) Second Hand Exposure: No; Do You Dip or Chew Tobacco: Yes; Hx Alcohol Use: No Hx Substance Use: Yes Last Used Substance: Days (ago) Last Used Substance Other:: 07-07-24 Substance Use Type Other:: 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 Preferred Language: Persian Communication Ability: Effective Yard Motor Operator Required: No Beliefs That Will Affect Care: None Current Living Situation: Spouse and Family Current Living Situation Comment: lives with and 2 grown sons current occupation: Retired Feels Safe at Home: Yes Assistive Devices: Cane and Walker Allergies Allergies Allergy/AdvReac Type Severity Reaction Status Date / Time lisinopril Allergy Severe Angioedema Verified 07/01/24 11:22 Home Meds Home Medications Medication Instructions Recorded Confirmed apixaban 5 mg tablet 5 mg PO BID 05/24/21 07/08/24 atorvastatin 80 mg tablet 40 mg PO PM 05/24/21 07/08/24 magnesium oxide 500 mg PO DAILY 05/24/21 07/08/24 potassium chloride 20 mEq 20 meq PO QAM 05/24/21 07/08/24 tablet,extended release aspirin 81 mg tablet,delayed 81 mg PO QAM 12/16/21 07/08/24 release (Adult Aspirin Regimen) coenzyme Q10 200 mg capsule 200 mg PO DAILY 12/16/21 07/08/24 cyanocobalamin (vitamin B-12) 500 500 mcg PO DAILY 12/16/21 07/08/24 mcg tablet folic acid 0.8 mg capsule 0.8 mg PO DAILY 12/16/21 07/08/24 furosemide 40 mg tablet 40 mg PO QAM 12/16/21 07/08/24 losartan 50 mg tablet 100 mg PO QAM 12/16/21 07/08/24 metoprolol succinate 25 mg 25 mg PO QAM 12/16/21 07/08/24 tablet,extended release 24 hr nitroglycerin 0.4 mg sublingual 0.4 mg sublingual Q5M PRN Chest 12/16/21 07/08/24 tablet Pain omeprazole 20 mg capsule,delayed 20 mg PO QAM 12/16/21 07/08/24 release vit 168-iron 27 mg-folic 1 cap PO QAM 12/16/21 07/08/24 acid 800 mcg-omega3 235 mg capsule (One-A-Day -1) vit C 250 mg-vit E 90 mg-zinc 40 1 tab PO DAILY 12/16/21 07/08/24 mg-copper 1 [id number]-[id number] capsule (PreserVision AREDS-2) vitamin B complex (B 1 tab PO DAILY 12/21/21 07/08/24 Complex-Vitamin B12 tablet) amlodipine 5 mg tablet 5 mg PO QAM 07/01/24 07/08/24 evolocumab 140 mg/mL subcutaneous 140 mg subcut UD 07/01/24 07/08/24 pen injector (Elizabeth Brown) hydralazine 25 mg tablet 25 mg PO TID 07/01/24 07/08/24 Previous Rx's Medication Instructions Recorded amoxicillin 875 mg-potassium 1 tab PO BIDM #11 tabs 07/12/24 clavulanate 125 mg tablet oxycodone 5 mg tablet 5 mg PO Q8H PRN severe pain (scale 07/12/24 score 7-10) #10 tabs Results & Data (ED) Vital Signs Vital Signs - 24 hr 07/19/24 14:37 07/19/24 15:38 07/19/24 15:38 Temperature 37.7 C H 38.0 C H Temperature Source Temporal Artery Scan Oral Pulse Rate 115 H Pulse Rate [Apical] 101 H Pulse Rhythm [Apical] Irregular Respiratory Rate 18 21 Respiratory Effort / Characteristics Non-Labored Respiratory Depth Normal Respiratory Pattern Regular Blood Pressure 134/61 Blood Pressure [Left Arm] 133/80 Blood Pressure Mean 85 Blood Pressure Mean [Left Arm] 97 Pulse Oximetry 94 93 Oxygen Delivery Method Room Air Room Air Room Air Sepsis Recent Fever Within 48 Hours No Sepsis New/Unexplained Change in Mental Status N/A Sepsis Action Taken by Nursing No Action Required 07/19/24 15:38 07/19/24 16:25 07/19/24 16:39 Temperature 37.2 C Temperature Source Oral Pulse Rate 93 H Pulse Rate [Apical] Pulse Rhythm [Apical] Respiratory Rate Respiratory Effort / Characteristics Respiratory Depth Respiratory Pattern Blood Pressure Blood Pressure [Left Arm] Blood Pressure Mean Blood Pressure Mean [Left Arm] Pulse Oximetry Oxygen Delivery Method Room Air Sepsis Recent Fever Within 48 Hours Sepsis New/Unexplained Change in Mental Status Sepsis Action Taken by Nursing Laboratory Data 07/19/24 15:14 07/19/24 15:14 Lab Results 07/19/24 07/19/24 Range/Units 15:14 15:40 WBC 21.63 H (4.8-10.8) K/ul RBC 3.09 L (4.70-6.10) M/uL Hgb 10.0 L (14.0-18.0) g/dl Hct 30.0 L (42.0-52.0) % MCV 97.1 (80.0-100.0) fL MCH 32.4 (25.0-34.0) pg MCHC 33.3 (32.0-36.0) g/dL RDW Std Deviation 46.5 H (36.4-46.3) fL RDW Coeff of Dedra 13.1 (11.5-14.5) % Plt Count 375 (130-400) K/uL MPV 9.4 (9.4-12.4) fL Immature Gran % (Auto) 3.8 % Neut % (Auto) 82.2 % Lymph % (Auto) 5.0 % [place] % (Auto) 7.4 % Eos % (Auto) 1.2 % Baso % (Auto) 0.4 % Neut # (Auto) 17.80 H (1.40-6.50) K/uL Lymph # (Auto) 1.09 L (1.20-3.40) K/uL [place] # (Auto) 1.59 H (0.11-0.59) K/uL Eos # (Auto) 0.25 (0.00-0.50) K/uL Baso # (Auto) 0.08 (0.00-0.20) K/uL Immature Gran # (Auto) 0.82 H (0.01-0.20) K/uL PT 11.3 (9.0-12.0) Seconds INR 1.0 (0.9-1.1) APTT 27 (21-31) Seconds PTT Ratio 1.0 Sodium 132 L (136-145) mmol/L Potassium 4.4 (3.5-5.1) mmol/L Chloride 102 (98-107) mmol/L Carbon Dioxide 23 (21-32) mmol/L Anion Gap 7 (3-11) BUN 14 (6-23) mg/dl Creatinine 0.53 L (0.6-1.4) mg/dl Est Cr Clr Drug Dosing 107.4 ml/min eGFR 102.58 BUN/Creatinine Ratio 26.4 H (10-20) Glucose 109 H (70-99(Fasting)) mg/dl Lactate 0.7 (0.4-2.0) mmol/L Calcium 9.5 (8.6-10.3) mg/dl Magnesium 1.5 L (1.7-2.4) mg/dl Total Bilirubin 0.6 (0.2-1.0) mg/dl AST 58 H (13-39) U/L ALT 108 H (7-52) U/L Alkaline Phosphatase 371 H (34-104) U/L Troponin I High Sens 9.9 (0-20) pg/ml Total Protein 7.2 (6.0-8.3) gm/dl Albumin 3.2 L (3.4-5.0) gm/dl Globulin 4.0 (2.5-4.0) gm/dl Albumin/Globulin Ratio 0.8 L (0.9-2) Procalcitonin 0.10 (0-0.5) ng/ml Adenovirus (PCR) Not Detected (NotDetected) B. pertussis DNA (PCR) Not Detected (NotDetected) B.parapertussis DNA PCR Not Detected (NotDetected) C. pneumoniae DNA (PCR) Not Detected (NotDetected) Coronavirus OC43 (PCR) Not Detected (NotDetected) Coronavirus HKU1 (PCR) Not Detected (NotDetected) Coronavirus 229E (PCR) Not Detected (NotDetected) SARS-CoV-2 (PCR) Not Detected (NotDetected) Coronavirus NL63 (PCR) Not Detected (NotDetected) Human Metapneumovir PCR Not Detected (NotDetected) Influenza Type A (PCR) Not Detected (NotDetected) Influenza Type B (PCR) Not Detected (NotDetected) M. pneumoniae (PCR) Not Detected (NotDetected) Parainfluenza 1 (PCR) Not Detected (NotDetected) Parainfluenza 2 (PCR) Not Detected (NotDetected) Parainfluenza 3 (PCR) Not Detected (NotDetected) Parainfluenza 4 (PCR) Not Detected (NotDetected) RSV (PCR) Not Detected (NotDetected) Entero/Rhino (PCR) Not Detected (NotDetected) Administered Medications Vancomycin HCl 2,000 mg/ (Sodium Chloride) 540 mls @ 200 mls/hr IV NOW ONE Stop: 07/19/24 18:41 Last Admin: 07/19/24 16:36 Dose: 200 mls/hr Documented By: BRENDA Discontinued Medications Acetaminophen (Ofirmev) 1,000 mg in 100 mls @ 400 mls/hr IV NOW STA Stop: 07/19/24 14:58 Last Infusion: 07/19/24 15:47 Dose: Infused Documented By: Admin: 07/19/24 15:32 Dose: 400 mls/hr Documented By: BRENDA Cefepime HCl (Maxipime 2000mg) 2,000 mg in 20 mls @ 5 mls/min IV NOW STA; Protocol Stop: 07/19/24 15:47 Last Admin: 07/19/24 16:01 Dose: 5 mls/min Documented By: BERNDA Imaging Data Radiologist's Impression: Chest X-Ray 07/19/24 14:43 XR chest 1V not portable HISTORY: 79 years-old Male Sepsis acute sepsis COMPARISON: 07/12/2024 TECHNIQUE: AP view of the chest FINDINGS: Cardiac silhouette is enlarged. Median sternotomy. No pneumothorax. Increased size of the layering right pleural effusion with right basilar consolidation. Mild chronic interstitial reticular opacities compatible with fibrosis. IMPRESSION: 1. Increased size of the layering right pleural effusion with progressive right basilar consolidation. 2. Cardiomegaly without pulmonary edema. ACT 112: Negative or not required by law. The above report was generated using voice recognition software. It may contain grammatical, syntax or spelling errors. Electronically signed by: Franco Shrestha M.D. 07/19/2024 3:28 PM Discharge Plan Visit Data Chief Complaint: Abnormal Labs/Diagnostic Testing Stated Complaint: ABNORMAL BLOODWORK, INFECTION ED Provider: Tracie Joseph Discharge Problem: Pneumonia, Sepsis, Leukocytosis, Fever Forms Stand Alone Forms: My [facility] [employer] Prescriptions Prescriptions: No Action cyanocobalamin (vitamin B-12) 500 mcg tablet 500 mcg PO DAILY One-A-Day -1 27 mg iron- 800 mcg-235 mg capsule 1 cap PO QAM losartan 50 mg tablet 100 mg PO QAM metoprolol succinate 25 mg tablet extended release 24 hr 25 mg PO QAM furosemide 40 mg tablet 40 mg PO QAM aspirin [Adult Aspirin Regimen] 81 mg tablet,delayed release (DR/EC) 81 mg PO QAM nitroglycerin 0.4 mg tablet, sublingual 0.4 mg sublingual Q5M PRN (Reason: Chest Pain) Rx Instructions: do not exceed 3 doses per episode PreserVision AREDS-2 250-90-40-1 mg capsule 1 tab PO DAILY omeprazole 20 mg capsule,delayed release(DR/EC) 20 mg PO QAM coenzyme Q10 200 mg capsule 200 mg PO DAILY folic acid 0.8 mg capsule 0.8 mg PO DAILY vitamin B complex [B Complex-Vitamin B12] Tablet 1 tab PO DAILY atorvastatin 80 mg Tablet 40 mg PO PM apixaban 5 mg Tablet 5 mg PO BID potassium chloride 20 mEq Tablet Extended Release 20 meq PO QAM magnesium oxide 400 mg magnesium Tablet 500 mg PO DAILY amoxicillin-pot clavulanate 875-125 mg Tablet 1 tab PO BIDM Qty: 11 0RF Rx Instructions: filled 07/18 7 day supply oxycodone 5 mg Tablet 5 mg PO Q8H PRN (Reason: severe pain (scale score 7-10)) Qty: 10 0RF Rx Instructions: filled 07/12 hydralazine 25 mg Tablet 25 mg PO TID amlodipine 5 mg Tablet 5 mg PO QAM Repatha SureClick 140 mg/mL Pen Injector 140 mg SUBCUT UD Rx Instructions: twice monthly Referrals Referrals: Dk Lnae MD [Primary Care Provider] -
[2024-07-19 15:59] LABS: Troponin I High Sensitivity 9.9 pg/ml (0-20)
[2024-07-19] MEDS ORDERED: VANCOMYCIN CONSULT ACTIVE PRN (16:00)
[2024-07-19] MEDS: CEFEPIME 2000MG 2,000 MG/20 ML SYR IV STA (16:01)
[2024-07-19 16:04] LABS: Partial Thromboplastin Time 27 Seconds (21-31); Prothrombin Time 11.3 Seconds (9.0-12.0)
[2024-07-19] MEDS: VANCOMYCIN HCL 2,000 MG in SODIUM CHLORIDE 0.9% 500 ML IV ONE (16:36)
[2024-07-19 16:49] LABS: Adenovirus PCR Not Detected (NotDetected); Bordetella parapertussis PCR Not Detected (NotDetected); Bordetella pertussis PCR Not Detected (NotDetected); Chlamydia pneumoniae PCR Not Detected (NotDetected); Coronavirus 229E PCR Not Detected (NotDetected); Coronavirus CoV-2 (COVID19)PCR Not Detected (NotDetected); Coronavirus HKU1 PCR Not Detected (NotDetected); Coronavirus NL63 PCR Not Detected (NotDetected); Coronavirus OC43PCR Not Detected (NotDetected); Human Metapneumovirus PCR Not Detected (NotDetected); Influenza A PCR Not Detected (NotDetected); Influenza B PCR Not Detected (NotDetected); Mycoplasma pneumoniae PCR Not Detected (NotDetected); Parainfluenza Virus 1 PCR Not Detected (NotDetected); Parainfluenza Virus 2 PCR Not Detected (NotDetected); Parainfluenza Virus 3 PCR Not Detected (NotDetected); Parainfluenza Virus 4 PCR Not Detected (NotDetected); Respiratory Syncytial VirusPCR Not Detected (NotDetected); Rhinovirus/Enterovirus PCR Not Detected (NotDetected)
--- NOTE | 2024-07-19 17:35 | History & Physical Report ---
Date of Service July 19, 2024 Assessment & Plan (1) Right lower lobe pneumonia: Plan: Initial admission on 07/08/2024 with right lung pleurisy and right lower lobe pneumonia Treated with intravenous Unasyn and oral Doxy and was sent home on Augmentin on of this month Was evaluated by the nba player during that time Continues to have fever since Sunday last an outpatient labs showed very high white count Repeat chest x-ray showed increasing effusion and increasing consolidation Blood cultures have been taken and the patient does not seems to be septic Started with intravenous cefepime and vancomycin and will continue Could have empyema and will consult pulmonology (2) Pleural effusion, right: Plan: Noted to have right pleural effusion with consolidation on of this month Pulmonary evaluation to rule out possibility of empyema (3) Permanent atrial fibrillation: Plan: Rate is controlled On Eliquis (4) Nephrolithiasis: Plan: Denies any acute pain (5) Interstitial lung disease: Plan: Complicating pneumonic process Noted to have lung nodule and will have outpatient follow-up CT scan on discharge (6) CAD (coronary artery disease): Plan: No chest pain and/or palpitation (7) Hypertension: Plan: BP is controlled on current medications (8) Hyperlipidemia: Plan: Continue statin (9) Sleep apnea: Plan DVT prophylaxis Has been on Eliquis CODE STATUS- full History of Present Illness Chief Complaint: Fever cough and shortness of breath since Sunday last Primary Care Provider: Dk Lane MD He is a 79-year-old male with significant past medical history of CAD status post CABG x 4, radiofrequency ablation, hypertension, hyperlipidemia, prediabetes, cerebellar ataxia, autoimmune cerebellar degeneration and also interstitial lung disease apparently was discharged from the hospital on of this month following an attack of right lower lobe pneumonia. He finished a course of Augmentin for 7 days and was seen by PCP and since that fever is continuing there is extended further 7 days. He has been complaining of fever with sweats associated with cough and more shortness of breath since Sunday. Outpatient lab work for cardiology follow-up showed white count to be elevated at 21,000 and she was advised to come to the emergency room. Denies any chest pain and/or palpitation, no abdominal pain nausea no vomiting, no increasing swelling of the legs and no neurological symptoms. In the ER chest x-ray did show increasing right pleural effusion and also increasing consolidation. He was started with intravenous vancomycin and cefepime and was advised for admission. Allergies Allergy/AdvReac Type Severity Reaction Status Date / Time lisinopril Allergy Severe Angioedema Verified 07/01/24 11:22 Home Medications Medication Instructions Recorded Confirmed Type apixaban 5 mg tablet 5 mg PO BID 05/24/21 07/19/24 History atorvastatin 80 mg tablet 40 mg PO PM 05/24/21 07/19/24 History magnesium oxide 500 mg PO DAILY 05/24/21 07/19/24 History potassium chloride 20 mEq 20 meq PO QAM 05/24/21 07/19/24 History tablet,extended release aspirin 81 mg tablet,delayed 81 mg PO QAM 12/16/21 07/19/24 History release (Adult Aspirin Regimen) coenzyme Q10 200 mg capsule 200 mg PO DAILY 12/16/21 07/19/24 History cyanocobalamin (vitamin B-12) 500 500 mcg PO DAILY 12/16/21 07/19/24 History mcg tablet folic acid 0.8 mg capsule 0.8 mg PO DAILY 12/16/21 07/19/24 History furosemide 40 mg tablet 40 mg PO QAM 12/16/21 07/19/24 History losartan 50 mg tablet 100 mg PO QAM 12/16/21 07/19/24 History metoprolol succinate 25 mg 25 mg PO QAM 12/16/21 07/19/24 History tablet,extended release 24 hr nitroglycerin 0.4 mg sublingual 0.4 mg sublingual Q5M PRN Chest 12/16/21 07/19/24 History tablet Pain omeprazole 20 mg capsule,delayed 20 mg PO QAM 12/16/21 07/19/24 History release vit 168-iron 27 mg-folic 1 cap PO QAM 12/16/21 07/19/24 History acid 800 mcg-omega3 235 mg capsule (One-A-Day -1) vit C 250 mg-vit E 90 mg-zinc 40 1 tab PO DAILY 12/16/21 07/19/24 History mg-copper 1 [id number] capsule (PreserVision AREDS-2) vitamin B complex (B 1 tab PO DAILY 12/21/21 07/19/24 History Complex-Vitamin B12 tablet) amlodipine 5 mg tablet 5 mg PO QAM 07/01/24 07/19/24 History evolocumab 140 mg/mL subcutaneous 140 mg subcut UD 07/01/24 07/19/24 History pen injector (Elizabeth Brown) hydralazine 25 mg tablet 25 mg PO TID 07/01/24 07/19/24 History amoxicillin 875 mg-potassium 1 tab PO BIDM #11 tabs 07/12/24 07/19/24 Rx clavulanate 125 mg tablet oxycodone 5 mg tablet 5 mg PO Q8H PRN severe pain (scale 07/12/24 07/19/24 Rx score 7-10) #10 tabs Past Med/Surg History Problem List (Updated 07/19/24 @ 17:29 by Alexandra Branch MD) Pleural effusion, right Fever (Acute) Leukocytosis (Acute) Sepsis (Acute) Pneumonia (Acute) Permanent atrial fibrillation Nephrolithiasis Interstitial lung disease Right lower lobe pneumonia Pleurisy Acute right flank pain (Acute) Encounter for pre-operative examination Hypercalcemia Medical History CAD (coronary artery disease) CABG x 4 (2020) Follows with [facility] cardio Peripheral neuropathy Sleep apnea Home study showed he was having periods of apnea. Formal sleep study recommended (not done yet) Atrial fibrillation Taking Eliquis Hypertension Hyperlipidemia Surgical History Hx of cardiac catheterization (04/2021) 04/2021 > CABG x4 (05/2021) History of tonsillectomy History of inguinal hernia repair x2, right side History of cataract surgery (2020) Bilateral History of cystoscopy History of colonoscopy History of coronary artery bypass graft CABG x4 (2020) Family History Mother Hypertension Father Viral encephalitis Brother Coronary heart disease Other History of coronary artery bypass graft Social History Smoking Status: Never smoker Tobacco Type: Smokeless Tobacco (Dip or Chew) Second Hand Exposure: No; Do You Dip or Chew Tobacco: Yes; Hx Alcohol Use: No Hx Substance Use: Yes Last Used Substance: Days (ago) Last Used Substance Other:: 07-07-24 Substance Use Type Other:: 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 Preferred Language: Central African Communication Ability: Effective Lead Network Engineer Required: No Beliefs That Will Affect Care: None Current Living Situation: Spouse and Family Current Living Situation Comment: lives with and 2 grown sons current occupation: Retired Feels Safe at Home: Yes Assistive Devices: Cane and Walker Review of Systems Review of Systems: All systems reviewed and are unremarkable except as noted below Physical Exam Physical Exam: Lying in bed without any apparent distress Constitutional: + ill appearing and average body habitus Eyes: PERRL, conjunctivae normal, anicteric sclerae ENMT: external ear and nose normal, oropharynx normal Neck: trachea midline, no thyromegaly Respiratory: no respiratory distress Auscultation: + diminished lung sounds (Right base) and + crackles (Right base more than the left); no wheezes Cardiovascular: Rate/Rhythm: regular rate and regular rhythm; not tachycardic Heart Sounds: normal S1, normal S2 and + murmur Extremities: + edema (Trace edema bilaterally) Gastrointestinal (Abdomen): Inspection/Auscultation: normal bowel sounds; abdomen not distended Percussion/Palpation: abdomen soft; abdomen nontender Musculoskeletal: No acute arthritis involving any of the joint Neurologic: normal touch/pain/proprioception and moves all extremities; no focal motor deficits Psychiatric: A+Ox3, euthymic affect Lymphatic: no cervical or axillary lymphadenopathy Results & Data Results & Data Vital Signs (Past 12 Hours) Vital Signs Temp Pulse Pulse Resp BP BP Pulse Ox 07/19/24 16:39 37.2 C 07/19/24 16:25 93 H 07/19/24 15:38 07/19/24 15:38 07/19/24 15:38 38.0 C H 101 H 21 133/80 93 07/19/24 14:37 37.7 C H 115 H 18 134/61 94 O2 Del Method 07/19/24 16:39 07/19/24 16:25 07/19/24 15:38 Room Air 07/19/24 15:38 Room Air 07/19/24 15:38 Room Air 07/19/24 14:37 Room Air Laboratory Results Short CBC 07/19/24 Range/Units 15:14 WBC 21.63 H (4.8-10.8) K/ul Hgb 10.0 L (14.0-18.0) g/dl Hct 30.0 L (42.0-52.0) % Plt Count 375 (130-400) K/uL BMP 07/19/24 15:14 Sodium 132 L Potassium 4.4 Chloride 102 Carbon Dioxide 23 BUN 14 Creatinine 0.53 L Glucose 109 H Calcium 9.5 Liver Function 07/19/24 Range/Units 15:14 Total Bilirubin 0.6 (0.2-1.0) mg/dl AST 58 H (13-39) U/L ALT 108 H (7-52) U/L Alkaline Phosphatase 371 H (34-104) U/L Albumin 3.2 L (3.4-5.0) gm/dl Medications Administered Current Inpatient Medications Vancomycin HCl 2,000 mg/ (Sodium Chloride) 540 mls @ 200 mls/hr IV NOW ONE Stop: 07/19/24 18:41 Last Admin: 07/19/24 16:36 Dose: 200 mls/hr Cefepime HCl (Maxipime 2000mg) 2,000 mg in 20 mls @ 5 mls/min IV Q8H [facility]; Protocol Stop: 07/27/24 00:00 Miscellaneous Information (Vancomycin Consult Active) 1 each N/A UD PRN PRN Reason: Consult Stop: 08/18/24 15:59 Code Status & VTE Plan VTE Prophylaxis Plan VTE Prophylaxis will be ordered: Yes
[2024-07-19] MEDS ORDERED: NITROGLYCERIN SL 0.4 MG/TAB TAB SL PRN (20:52)
[2024-07-19] MEDS: APIXABAN 5 MG TABLET PO SCH (22:16)
[2024-07-19] MEDS: hydrALAZINE HCL 25 MG TAB PO SCH (22:17)
[2024-07-19] MEDS: ATORVASTATIN 40 MG TAB PO SCH (22:17)
[2024-07-19 23:32] LABS: Appearance Urine Clear (Clear); Bilirubin Urine Negative (Negative); Blood Urine Negative (Negative); Color Urine Yellow; Glucose Urine UA Negative (Negative); Ketones Urine Negative (Negative); Leukocyte Esterase Urine Negative (Negative); Nitrite Urine Negative (Negative); Protein Urine Negative (Negative); Specific Gravity Urine 1.013 (1.000-1.030); Urobilinogen Urine Negative (Negative); pH Urine 5.5 (4.5-7.5)
[2024-07-20] MEDS: CEFEPIME 2000MG 2,000 MG/20 ML SYR IV SCH (00:10)
[2024-07-20] MEDS: VANCOMYCIN 1,250mg in D5W 250mL (Use w/ NSS Shortage) IV SCH (00:24)
[2024-07-20] MEDS: MELATONIN 3 MG TAB PO PRN (01:07)
[2024-07-20] MEDS: ACETAMINOPHEN 325 MG TAB PO STA (06:39)
--- NOTE | 2024-07-20 07:31 | Electrocardiogram Report ---
Test Reason : Blood Pressure : */* mmHG Vent. Rate : 97 BPM Atrial Rate : * BPM P-R Int : * ms QRS Dur : 84 ms QT Int : 356 ms P-R-T Axes : * 24 39 degrees QTcB Int : 452 ms Atrial fibrillation Abnormal ECG When compared with ECG of 10-Jul-2024 18:07, No significant change was found Confirmed by Yan Spear ([id number]) on 07/20/2024 7:30:50 AM Referred By: REFERRED SELF Confirmed By: Yan Spear
[2024-07-20] MEDS: amLODIPine BESYLATE 5 MG TAB PO SCH (07:57)
[2024-07-20] MEDS: CYANOCOBALAMIN (B-12) 500 MCG TABLET PO SCH (07:58)
[2024-07-20] MEDS: FOLIC ACID 400 MCG TAB PO SCH (07:58)
[2024-07-20] MEDS: ASPIRIN 81 MG ECTAB PO SCH (07:58)
[2024-07-20] MEDS: FUROSEMIDE 40 MG TAB PO SCH (07:59)
[2024-07-20] MEDS: LOSARTAN POTASSIUM 50 MG TAB PO SCH (07:59)
[2024-07-20] MEDS: MAGNESIUM OXIDE 400 MG TAB PO SCH (08:00)
[2024-07-20] MEDS: METOPROLOL SUCC 25MG EXT REL TAB PO SCH (08:00)
[2024-07-20] MEDS: CEROVITE ADV FORMULA TAB PO SCH (08:00)
[2024-07-20] MEDS: PANTOprazole 40 MG TAB PO SCH (08:00)
[2024-07-20] MEDS: PRENATAL VITAMIN 1 TAB PO SCH (08:01)
[2024-07-20] MEDS: VITAMIN B COMPLEX TAB PO SCH (08:01)
[2024-07-20 08:43] LABS: Basophils # (auto) 0.08 K/uL (0.00-0.20); Basophils % (auto) 0.5 %; Eosinophils # (auto) 0.18 K/uL (0.00-0.50); Eosinophils % (auto) 1.1 %; Hematocrit (blood only) 28.8 % (42.0-52.0); Hemoglobin 9.8 g/dl (14.0-18.0); Immature Granulocytes # (auto) 0.45 K/uL (0.01-0.20); Immature Granulocytes % (auto) 2.8 %; Lymphocytes # (auto) 1.06 K/uL (1.20-3.40); Lymphocytes % (auto) 6.7 %; Mean Corpuscular Hemoglobin 32.2 pg (25.0-34.0); Mean Corpuscular Volume 94.7 fL (80.0-100.0); Mean Platelet Volume 9.7 fL (9.4-12.4); Monocytes # (auto) 1.29 K/uL (0.11-0.59); Monocytes % (auto) 8.2 %; Neutrophils # (auto) 12.74 K/uL (1.40-6.50); Neutrophils % (auto) 80.7 %; Platelet Count 369 K/uL (130-400); RDW Standard Deviation 44.7 fL (36.4-46.3); Red Blood Count 3.04 M/uL (4.70-6.10)
[2024-07-20] MEDS ORDERED: NON-FORMULARY MEDICATION (Coenzyme Q10 200 mg capsule) PO SCH (09:00)
[2024-07-20 09:01] LABS: BUN Creatinine Ratio 21.7 (10-20); Calcium 9.3 mg/dl (8.6-10.3); Magnesium 1.5 mg/dl (1.7-2.4); Phosphorus 3.2 mg/dl (2.5-4.9); Potassium 4.1 mmol/L (3.5-5.1)
--- NOTE | 2024-07-20 09:44 | Hospitalist Progress Note ---
Date of Service July 20, 2024 Assessment & Plan (1) Right lower lobe pneumonia: (2) Pleural effusion, right: Plan: Initial admission on 07/08/2024 with right lung pleurisy and right lower lobe pneumonia Treated with intravenous Unasyn and oral Doxy and was sent home on Augmentin on of this month Was evaluated by the exchange engineer during that time Continues to have fever at home and outpatient lab showed leukocytosis Repeat chest x-ray on admission showed increasing effusion and increasing consolidation Leukocytosis improving Continue vanc and cefepime Add metronidazole Patient has empyema. Discussed with Lead Investigator Dr Barone. He recommends chest tube placement. However, patient will need his eliquis held for that (3) Permanent atrial fibrillation: Plan: Rate is controlled Was on eliquis Eliquis held as above for procedure tomorrow. Last dose was last night If procedure is delayed, will do hep gtt (4) CAD (coronary artery disease): Plan: No chest pain and/or palpitation (5) Hypertension: Plan: BP is controlled on current medications (6) Hyperlipidemia: Plan: Continue statin (7) Sleep apnea: Plan CODE STATUS- full I spent a total of 50 minutes coordinating, documenting and providing care for this patient excluding time spent in performance of separately billed services Admission and Anticipated Discharge Date Admission Date: July 19, 2024 Subjective Patient seen and examined Has hearing deficits Reports cough but improving compared to previous admission Reports occasional mild shortness of breath Denied chest pain Reports night sweats Denied fever, chills, nausea, vomiting, abd pain Physical Exam Constitutional: + well hydrated; no acute distress Eyes: PERRL, conjunctivae normal, anicteric sclerae ENMT: external ear and nose normal, oropharynx normal Respiratory: On room air, Not in respiratory distress, +crackles right lung base Cardiovascular: Rate/Rhythm: + irregularly irregular Gastrointestinal (Abdomen): normal bowel sounds, soft, nontender, no hepatosplenomegaly Musculoskeletal: No pedal edema Neurologic: PERRL, EOMI, accommodation nl, no face palsy, no dysarthria Psychiatric: A+Ox3, euthymic affect Results & Data Results & Data Vital Signs (Past 12 Hours) Vital Signs Temp Pulse Resp BP BP Pulse Ox O2 Del Method 07/20/24 07:38 37.0 C 88 18 128/73 92 Room Air 07/20/24 02:51 37 C 86 18 129/71 93 Room Air 07/19/24 22:14 37.1 C 83 18 120/67 93 Room Air Laboratory Results Abnormal lab results 07/19/24 07/20/24 Range/Units 15:14 07:07 WBC 21.63 H 15.80 H (4.8-10.8) K/ul RBC 3.09 L 3.04 L (4.70-6.10) M/uL Hgb 10.0 L 9.8 L (14.0-18.0) g/dl Hct 30.0 L 28.8 L (42.0-52.0) % RDW Std Deviation 46.5 H (36.4-46.3) fL Neut # (Auto) 17.80 H 12.74 H (1.40-6.50) K/uL Lymph # (Auto) 1.09 L 1.06 L (1.20-3.40) K/uL [place] # (Auto) 1.59 H 1.29 H (0.11-0.59) K/uL Immature Gran # (Auto) 0.82 H 0.45 H (0.01-0.20) K/uL Sodium 132 L (136-145) mmol/L Creatinine 0.53 L 0.46 L (0.6-1.4) mg/dl BUN/Creatinine Ratio 26.4 H 21.7 H (10-20) Glucose 109 H (70-99(Fasting)) mg/dl Magnesium 1.5 L 1.5 L (1.7-2.4) mg/dl AST 58 H (13-39) U/L ALT 108 H (7-52) U/L Alkaline Phosphatase 371 H (34-104) U/L Albumin 3.2 L (3.4-5.0) gm/dl Albumin/Globulin Ratio 0.8 L (0.9-2)
[2024-07-20] MEDS: POTASSIUM CHLORIDE CRTAB 20 MEQ TABCR PO SCH (09:52)
--- NOTE | 2024-07-20 11:35 | Pharmacy Report ---
Pharmacy PK ABX Note - Date of Service July 20, 2024 - Assessment and Plan Assessment * 79 year old M receiving cefepime and vancomycin for treatment of PNA and possible empyema. Anaerobic coverage may or may not be indicated - Dr. Wild to consider * Pertinent microbiologic data includes: Negative MRSA Nasal Swab, negative respiratory BioFire, blood cultures pending * SCr likely at baseline Plan Vancomycin * Loading dose: 2000 mg IV x 1 * Maintenance dose: 1250 mg IV every 12 hours * Regimen is predicted to achieve target AUC/GREG of 400-600 mg/L.hr * Random level ordered for: 10 AM Pharmacy will continue to follow and will adjust dose/frequency as necessary. Thank you. Pharmacy has transitioned to AUC monitoring for vancomycin. AUC/GREG is the preferred PK/PD target and is associated with decreased risk of nephrotoxicity compared to traditional trough targets.
--- NOTE | 2024-07-20 12:06 | Pulmonary Consultation ---
Date of Consultation July 20, 2024 Assessment & Plan (1) Pleural effusion, right: (2) Pleurisy: (3) Right lower lobe pneumonia: Plan 79-year-old male with a history of atrial fibrillation, left atrial appendage occlusion device, incidentally discovered ILD during his last admission and nephrolithiasis presenting to the hospital due to ongoing low-grade fevers and shortness of breath. Today I performed a pleural ultrasound on the right and left hemithorax. The right hemithorax demonstrated a multiseptated right pleural effusion of moderate size. No effusion seen on the left. Given these findings and evidence of right lower lobe pneumonia on chest x-ray and ultrasound, I suspect the patient has an empyema. We did discuss chest tube placement. He took a dose of Eliquis yesterday evening and is at an increased risk of hemorrhage related to a chest tube insertion. We did discuss that the risks are relatively low despite taking the Eliquis, but higher than if he was off Eliquis for 48 hours. His white count is improving and clinically he does not look toxic on exam or overtly septic. Both the patient and his and son agreed to hold on placing a chest tube today and having a percutaneous ultrasound-guided chest tube placed tomorrow to drain the likely right-sided empyema. He will likely require the mist 2 protocol. We also discussed that there is a failure rate associated with chest tube drainage of empyema and ultimately he may require a VATS, but hopefully this pleural effusion will be amenable to drainage with chest tube insertion and mist 2 protocol. Lastly, we also discussed that if he were to worsen clinically today, then we would have to emergently place a right-sided chest tube which he is in agreement with. Continue with current antibiotic therapy including vancomycin, cefepime and Flagyl. Thank you for the consult. Pulmonary medicine will continue to follow with you and anticipate placing percutaneous chest tube tomorrow. Eliquis has been placed on hold by me. Coags successful with an INR 1.0 07/19/2024. Platelet count acceptable as well. History of Present Illness Reason for Consultation: Left pleural effusion and pneumonia Attending Physician: Penelope Wild MD History of Present Illness 79-year-old male with history of atrial fibrillation and coronary artery disease status post FERNIE 07/03/2024. Patient has a history of left atrial appendage occlusion device with atrial clip. Patient's son and are at bedside. They note since his FERNIE patient has been complaining of cough and has had low-grade fevers on and off. He was actually hospitalized a couple weeks ago and seen by my colleague Dr. Brody and treated for pneumonia with Augmentin. He had a CT scan at that time which showed a small loculated right-sided pleural effusion. Chest x-ray completed yesterday revealed an increased size of the layering right pleural effusion with a right basilar consolidation. Patient had an elevated white count. Nasal MRSA screen was negative on admission. Patient is currently on cefepime and after discussion with hospitalist service this will be broadened out to Flagyl and cefepime. Patient received a dose of Eliquis yesterday evening and the Eliquis has been held today by me. Allergies Allergy/AdvReac Type Severity Reaction Status Date / Time lisinopril Allergy Severe Angioedema Verified 07/01/24 11:22 Home Medications Medication Instructions Recorded Confirmed Type apixaban 5 mg tablet 5 mg PO BID 05/24/21 07/19/24 History atorvastatin 80 mg tablet 40 mg PO PM 05/24/21 07/19/24 History magnesium oxide 500 mg PO DAILY 05/24/21 07/19/24 History potassium chloride 20 mEq 20 meq PO QAM 05/24/21 07/19/24 History tablet,extended release aspirin 81 mg tablet,delayed 81 mg PO QAM 12/16/21 07/19/24 History release (Adult Aspirin Regimen) coenzyme Q10 200 mg capsule 200 mg PO DAILY 12/16/21 07/19/24 History cyanocobalamin (vitamin B-12) 500 500 mcg PO DAILY 12/16/21 07/19/24 History mcg tablet folic acid 0.8 mg capsule 0.8 mg PO DAILY 12/16/21 07/19/24 History furosemide 40 mg tablet 40 mg PO QAM 12/16/21 07/19/24 History losartan 50 mg tablet 100 mg PO QAM 12/16/21 07/19/24 History metoprolol succinate 25 mg 25 mg PO QAM 12/16/21 07/19/24 History tablet,extended release 24 hr nitroglycerin 0.4 mg sublingual 0.4 mg sublingual Q5M PRN Chest 12/16/21 07/19/24 History tablet Pain omeprazole 20 mg capsule,delayed 20 mg PO QAM 12/16/21 07/19/24 History release vit 168-iron 27 mg-folic 1 cap PO QAM 12/16/21 07/19/24 History acid 800 mcg-omega3 235 mg capsule (One-A-Day -1) vit C 250 mg-vit E 90 mg-zinc 40 1 tab PO DAILY 12/16/21 07/19/24 History mg-copper 1 [id number]-esxvhi capsule (PreserVision AREDS-2) vitamin B complex (B 1 tab PO DAILY 12/21/21 07/19/24 History Complex-Vitamin B12 tablet) amlodipine 5 mg tablet 5 mg PO QAM 07/01/24 07/19/24 History evolocumab 140 mg/mL subcutaneous 140 mg subcut UD 07/01/24 07/19/24 History pen injector (Elizabeth Brown) hydralazine 25 mg tablet 25 mg PO TID 07/01/24 07/19/24 History amoxicillin 875 mg-potassium 1 tab PO BIDM #11 tabs 07/12/24 07/19/24 Rx clavulanate 125 mg tablet oxycodone 5 mg tablet 5 mg PO Q8H PRN severe pain (scale 07/12/24 07/19/24 Rx score 7-10) #10 tabs Patient History Medical History CAD (coronary artery disease) CABG x 4 (2020) Follows with [facility] Peripheral neuropathy Sleep apnea Home study showed he was having periods of apnea. Formal sleep study recommended (not done yet) Atrial fibrillation Taking Eliquis Hypertension Hyperlipidemia Surgical History Hx of cardiac catheterization (04/2021) 04/2021 > CABG x4 (05/2021) History of tonsillectomy History of inguinal hernia repair x2, right side History of cataract surgery (2020) Bilateral History of cystoscopy History of colonoscopy History of coronary artery bypass graft CABG x4 (2020) Family History Mother Hypertension Father Viral encephalitis Brother Coronary heart disease Other History of coronary artery bypass graft Social History Smoking Status: Never smoker Tobacco Type: Smokeless Tobacco (Dip or Chew) Second Hand Exposure: Yes; Do You Dip or Chew Tobacco: Yes (1 can every 3 days); Hx Alcohol Use: No Hx Substance Use: No Preferred Language: Luxembourgish Communication Ability: Effective Tibco Developer Required: No Beliefs That Will Affect Care: None Current Living Situation: Spouse Current Living Situation Comment: lives with and 2 grown sons current occupation: Retired Other Information That Helps Us Care for You: No Feels Safe at Home: Yes Safety Concerns: Feels Safe At This Time Assistive Devices: Cane and Walker Review of Systems Review of Systems: All systems reviewed & are unremarkable except as noted in HPI & below Physical Exam Physical Exam: Constitutional: Patient appears to be of their stated age. Patient is in no apparent distress. Patient is well-developed. Patient is hard of hearing at baseline. Eyes: Pupils are equal round and reactive to light. Conjunctivae are normal. Anicteric sclera. Ears nose, mouth and throat: No perioral cyanosis. Neck: Trachea is midline. Visual inspection is normal. Respiratory: Crackles in the right lower lobe. Mild tachypnea. Cardiovascular: Regular rate and rhythm. No murmurs. No edema. Gastrointestinal: Normal bowel sounds, soft, nontender and nondistended. No hepatosplenomegaly noted. Musculoskeletal: No cyanosis. Patient is able to move all extremities. Strength is 5 out of 5 in the upper and lower extremities. Skin: No rashes, warm dry and intact. Neurologic: No obvious focal neurological deficits seen. Psychiatric: Alert and oriented x3 with a euthymic affect. Results & Data Results & Data Vital Signs (Past 12 Hours) Vital Signs Temp Pulse Pulse Pulse Resp BP BP 07/20/24 11:33 36.6 C 93 H 15 125/63 07/20/24 07:38 37.0 C 88 18 128/73 07/20/24 05:37 94 H 07/20/24 02:51 37 C 86 18 129/71 Pulse Ox O2 Del Method 07/20/24 11:33 94 Room Air 07/20/24 07:38 92 Room Air 07/20/24 05:37 07/20/24 02:51 93 Room Air PG Care Time/CCT Total # of Minutes Spent Total Time Spent with Patient: Total time spent is greater than 50% in coordination of care (as documented) at patient's floor/unit and/or counseling patient: Coding Level of Care Code 24233 INT INP/OBS CARE 3/75MIN Diagnoses Pleural effusion, right J90 Pleurisy R09.1 Right lower lobe pneumonia J18.9
[2024-07-20] MEDS: Heparin IV Adult Wt-Based Low-Dose *NO* INITIAL Bolus Protocol IV STA (12:59)
[2024-07-20] MEDS: MAGNESIUM SULFATE / D5W 1 GM/100 ML BAG IV ONE (13:14)
[2024-07-20] MEDS ORDERED: HEPARIN SODIUM/DEXTROSE 25,000 UNITS/500 ML BAG IV SCH (13:15)
[2024-07-20] MEDS: metroNIDAZOLE 500 MG TAB PO SCH (15:34)
[2024-07-21 08:33] LABS: Hematocrit (blood only) 29.1 % (42.0-52.0); Hemoglobin 9.9 g/dl (14.0-18.0); Mean Corpuscular Hemoglobin 31.9 pg (25.0-34.0); Mean Corpuscular Volume 93.9 fL (80.0-100.0); Platelet Count 395 K/uL (130-400); RDW Coefficient of Variation 12.9 % (11.5-14.5); RDW Standard Deviation 44.2 fL (36.4-46.3)
[2024-07-21 08:46] LABS: BUN Creatinine Ratio 21.4 (10-20); Calcium 9.4 mg/dl (8.6-10.3); Creatinine Clr Calc Pharmacy 140.2 ml/min; Magnesium 1.7 mg/dl (1.7-2.4); Phosphorus 3.3 mg/dl (2.5-4.9); Potassium 4.1 mmol/L (3.5-5.1)
--- NOTE | 2024-07-21 08:55 | Pulmonology Progress Note ---
Date of Service July 21, 2024 Assessment & Plan (1) Pleural effusion, right: (2) Pleurisy: (3) Right lower lobe pneumonia: (4) Acute right flank pain: (5) Interstitial lung disease: Plan Impression: 79-year-old male recently admitted with right lower lobe pneumonia and small pleural effusion. He was discharged home on antibiotics but returned with elevated white blood cell count and increasing effusion. Recommendations: 1. Pneumonia: Currently on cefepime, vancomycin, and Flagyl. Await pleural fluid studies but can likely de-escalate antibiotics to Unasyn 2. Pleural effusion: Complicated with multiple loculations and septations. Status post 14 Luxembourgish pigtail catheter placement today. Initiate mist 2 protocol and follow-up daily chest x-ray 3. Interstitial lung disease: Incidental finding. Correlation with outpatient CT scans and PFTs 4. Pulmonary nodule: The patient reports multiple prior CT scans performed through the [employer] system. Correlation with prior imaging will be required. If the nodule is demonstrated greater than 12 months of stability, no additional radiographic follow-up is needed. If the nodule is new, consideration for a follow-up CT scan in 3 months might be appropriate Will continue to follow with you Admission and Anticipated Discharge Date Admission Date: July 19, 2024 Subjective Patient seen and examined. EMR reviewed. Discussed with outgoing outside maintenance worker as well as patient and bedside nurse. Patient reports overnight he is doing well. His chest pain and shortness of breath have resolved. He has not had any fevers or night sweats overnight. He overall feels improved Review of Systems Review of Systems: All systems reviewed & are unremarkable except as noted in Subjective Physical Exam Constitutional: WD/WN, vitals as above Neck: trachea midline, no thyromegaly Respiratory: no respiratory distress, no labored breathing, no cough and not tachypneic Auscultation: + diminished lung sounds; no crackles and no wheezes Cardiovascular: RRR, no murmur, no edema Gastrointestinal (Abdomen): normal bowel sounds, soft, nontender, no hepatosplenomegaly Musculoskeletal: Extremities: extremities normal to inspection Skin: no rashes, warm and dry Lymphatic: no cervical lymphadenopathy Results & Data Results & Data Vital Signs (Past 12 Hours) Vital Signs Temp Pulse Pulse Resp BP BP Pulse Ox 07/21/24 07:52 36.7 C 68 18 118/64 98 07/21/24 03:44 36.8 C 99 H 18 130/61 92 07/21/24 00:05 37.2 C 80 16 119/57 L 94 07/20/24 23:29 73 O2 Del Method 07/21/24 07:52 Room Air 07/21/24 03:44 Room Air 07/21/24 00:05 Room Air 07/20/24 23:29 Critical Care Results & Data Vital Signs (Past 12 Hours) Vital Signs Temp Pulse Pulse Resp BP BP Pulse Ox 07/21/24 07:52 36.7 C 68 18 118/64 98 07/21/24 03:44 36.8 C 99 H 18 130/61 92 07/21/24 00:05 37.2 C 80 16 119/57 L 94 07/20/24 23:29 73 O2 Del Method 07/21/24 07:52 Room Air 07/21/24 03:44 Room Air 07/21/24 00:05 Room Air 07/20/24 23:29 Lab & Micro Results (Past 24 Hours) RBC 3.10 M/uL (4.70-6.10) L 07/21/24 WBC 13.60 K/ul (4.8-10.8) H 07/21/24 Hgb 9.9 g/dl (14.0-18.0) L 07/21/24 Hct 29.1 % (42.0-52.0) L 07/21/24 MCV 93.9 fL (80.0-100.0) 07/21/24 MCH 31.9 pg (25.0-34.0) 07/21/24 MCHC 34.0 g/dL (32.0-36.0) 07/21/24 RDW Standard Deviation 44.2 fL (36.4-46.3) 07/21/24 RDW Coefficient of Variation 12.9 % (11.5-14.5) 07/21/24 Plt Count 395 K/uL (130-400) 07/21/24 MPV 9.0 fL (9.4-12.4) L 07/21/24 Na 137 mmol/L (136-145) 07/21/24 K 4.1 mmol/L (3.5-5.1) 07/21/24 Cl 105 mmol/L (98-107) 07/21/24 CO2 25 mmol/L (21-32) 07/21/24 Anion Gap 7 (3-11) 07/21/24 BUN 9 mg/dl (6-23) 07/21/24 Creatinine 0.42 mg/dl (0.6-1.4) L 07/21/24 BUN/Creatinine Ratio 21.4 (10-20) H 07/21/24 Glu 103 mg/dl (70-99(Fasting)) H 07/21/24 Ca 9.4 mg/dl (8.6-10.3) 07/21/24 Phosphorus Level 3.3 mg/dl (2.5-4.9) 07/21/24 Mg 1.7 mg/dl (1.7-2.4) 07/21/24 08:01 Calcium Level 9.4 mg/dl (8.6-10.3) 07/21/24 08:01 Microbiology 07/19/24 15:05 Aerobic Blood Culture - Preliminary Blood No growth in Aerobic bottle after 24 hours. Anaerobic Blood Culture - Preliminary No growth in Anaerobic bottle after 24 hours. 07/19/24 15:14 Aerobic Blood Culture - Preliminary Blood No growth in Aerobic bottle after 24 hours. Anaerobic Blood Culture - Preliminary No growth in Anaerobic bottle after 24 hours. I & O Totals 24 Hours 07/20/24 07/21/24 07/22/24 06:59 06:59 06:59 Intake Total 915 / 915 1350 / 1350 Output Total 77 / 77 Balance 838 / 838 1349 / 1349 Cumulative 07/19/24 14:30 thru 07/21/24 06:32 Intake Total 2265 Output Total 78 Balance 2187 RT Ventilator Mngmt (Last Documented) Ventilator Ordered Settings Respiratory Rate 18 07/21/24 07:52 Ventilator - PT Measurements Respiratory Rate 18 PG Care Time/CCT Total # of Minutes Spent Total Time Spent with Patient: Total time spent is greater than 50% in coordination of care (as documented) at patient's floor/unit and/or counseling patient: Coding Level of Care Code 86958 SUB INP/OBS CARE 3/50MIN Diagnoses Pleural effusion, right J90 Pleurisy R09.1 Right lower lobe pneumonia J18.9 Acute right flank pain R10.9 Interstitial lung disease J84.9
--- NOTE | 2024-07-21 09:00 | Procedure Note ---
Procedure Note Date of Service July 21, 2024 Procedure: 14 Martiniquais pigtail catheter placement Indication: Complicated parapneumonic effusion Consent risk and benefits were discussed with the patient. He agreed. Written consent was verified prior to commencement of the procedure. Meter Setter Dr. Brody Estimated blood loss: Less than 5 mL Anesthesia: 5 mL 1% lidocaine without epinephrine locally. Procedure: Patient has a parapneumonic complex effusion requiring drainage. I discussed risk and benefits of chest tube placement with the patient to include bleeding, damage to intrathoracic structures necessitating additional surgical procedure. He agreed to proceed. All questions were answered. The patient was placed in a upright seated position. Limited thoracic ultrasound was performed which revealed a complex multiseptated pleural effusion on the right with no significant effusion on the left. Skin and subcutaneous tissues were anesthetized with lidocaine. With the finder needle I was able to aspirate blood-tinged fluid. The finder needle was then withdrawn. A small skin shima was made with a scalpel. An 18-gauge needle was then advanced on a similar line until I was able to aspirate fluid. The syringe was removed leaving the needle in place. A wire was passed through the needle and then the needle was withdrawn leaving the wire in the pleural space. A 14 Martiniquais dilator was then passed over the wire to dilate the skin and soft tissues. This passed with ease. The dilator was removed leaving the wire in place. A 14 Martiniquais pigtail catheter was then loaded on a straightening catheter and advanced over the wire into the pleural space. The stiffening catheter and wire were removed leaving the pigtail catheter in place. The locking mechanism was secured. A three-way stopcock was attached. Total of 120 mL of bloody fluid was removed and sent for microbiologic and cytologic analysis. The tube was then attached to the Pleur-evac with an additional 40 cc of bloody fluid removed. No significant air leak was identified. Catheter was attached to suction at 20 cm of water. Post procedure chest x-ray is pending. The patient tolerated the procedure well. [facility] [place]Charges) Pulmonary/Thoracic Procedure 1: Pulmonary and Thoracic: 05998 Pleural drainage w/imaging Coding CPT Codes Pulmonary/Thoracic - Pulmonary and Thoracic: 51939 Pleural drainage w/imaging ([id number]) Additional Codes Date of Service (PG.SURGERY)
[2024-07-21 09:36] LABS: Total Protein Pleural Fluid 4.6 gm/dl
[2024-07-21] MEDS: ACETAMINOPHEN 325 MG TAB PO PRN (09:40)
--- NOTE | 2024-07-21 09:47 | XRay Report ---
XR chest 1V portable CLINICAL HISTORY: S/P Thoracentesis COMPARISON STUDY: Chest CT July 10, 2024. Chest radiograph July 19, 2024. FINDINGS: There is no pneumothorax following interval placement of a right basilar pleural catheter. The right pleural effusion has decreased in size. A few residual pleural effusion is present. Cardiom egaly is again noted. There are median sternotomy wires and mediastinal surgical clips. Interstitial thickening persists. The left pleural effusion is identified. IMPRESSION: 1. No pneumothorax following placement of a right basilar pleural catheter. Decrease in size of the r ight pleural effusion. 2. Cardiomegaly with stable mild interstitial thickening. ACT 112: Negative or not required by law. Electronically signed by: Donnie Biswas M.D. 07/21/2024 9:46 AM
--- NOTE | 2024-07-21 10:02 | Hospitalist Progress Note ---
Date of Service July 21, 2024 Assessment & Plan (1) Right lower lobe pneumonia: (2) Pleural effusion, right: Plan: Initial admission on 07/08/2024 with right lung pleurisy and right lower lobe pneumonia Treated with intravenous Unasyn and oral Doxy and was sent home on Augmentin on of this month Was evaluated by the back pad inspector during that time Continued to have fever at home and outpatient lab showed leukocytosis Repeat chest x-ray on admission showed increasing effusion and increasing consolidation Leukocytosis improving. Was 21K on admission, down to 13K today Currently on vanc, cefepime and flagyl Patient has empyema. S/p right chest tube placement this AM Daily CXR Will follow up fluid culture (3) Permanent atrial fibrillation: Plan: Rate is controlled Was on eliquis at home Eliquis currently on hold due to chest tube. Discussed with Pulm jesus Blum with hep or lovenox sq for DVT ppx for now while eliquis is on hold (4) CAD (coronary artery disease): Plan: No chest pain and/or palpitation (5) Hypertension: Plan: BP is controlled on current medications (6) Hyperlipidemia: Plan: Continue statin (7) Sleep apnea: Plan DVT ppx: lovenox sq while eliquis is on hold as above CODE STATUS- full I spent a total of 50 minutes coordinating, documenting and providing care for this patient excluding time spent in performance of separately billed services Admission and Anticipated Discharge Date Admission Date: July 19, 2024 Subjective Patient seen and examined Got chest tube place on right side this AM Reports some productive cough Reports mild pain at chest tube site Denied any other complaints on ROS Physical Exam Constitutional: + well hydrated; no acute distress Eyes: PERRL, conjunctivae normal, anicteric sclerae ENMT: external ear and nose normal, oropharynx normal Respiratory: On room air. Not in resp distress. Chest tube on right lateral chest wall. Diminished breath sounds RLL Cardiovascular: Rate/Rhythm: + irregularly irregular S1 S2 Gastrointestinal (Abdomen): normal bowel sounds, soft, nontender, no hepatosplenomegaly Musculoskeletal: No pedal edema Neurologic: PERRL, EOMI, accommodation nl, no face palsy, no dysarthria Psychiatric: A+Ox3, euthymic affect Results & Data Results & Data Vital Signs (Past 12 Hours) Vital Signs Temp Pulse Pulse Resp BP BP Pulse Ox 10/28/24 07:52 36.7 C 68 18 118/64 98 07/21/24 03:44 36.8 C 99 H 18 130/61 92 07/21/24 00:05 37.2 C 80 16 119/57 L 94 07/20/24 23:29 73 O2 Del Method 07/21/24 07:52 Room Air 07/21/24 03:44 Room Air 07/21/24 00:05 Room Air 07/20/24 23:29 Laboratory Results Abnormal lab results 07/21/24 Range/Units 08:01 WBC 13.60 H (4.8-10.8) K/ul RBC 3.10 L (4.70-6.10) M/uL Hgb 9.9 L (14.0-18.0) g/dl Hct 29.1 L (42.0-52.0) % MPV 9.0 L (9.4-12.4) fL Creatinine 0.42 L (0.6-1.4) mg/dl BUN/Creatinine Ratio 21.4 H (10-20) Glucose 103 H (70-99(Fasting)) mg/dl
[2024-07-21] MEDS: VANCOMYCIN 1,250mg in D5W 250mL (Use w/ NSS Shortage) IV SCH (10:23)
[2024-07-21] MEDS: ALTEPLASE, RECOMBINANT 10 MG in SYRINGE 50 ML IPL SCH (10:24)
[2024-07-21 10:29] LABS: Appearance Pleural Fluid Cloudy; Color Pleural Fluid Red; Eosinophils, Fluid 2 %; Lymphocytes, Fluid 70 %; Neutrophils, Fluid 28 %; RBC Pleural Fluid Auto 143000 /uL; Source Pleural Fluid Right Lung; WBC Pleural Fluid Auto 744 /uL
[2024-07-21] MEDS: DORNASE ALFA 5 ML in SYRINGE 25 ML IPL SCH (11:48)
--- NOTE | 2024-07-21 12:03 | Pharmacy Report ---
Pharmacy PK ABX Note - Date of Service July 21, 2024 - Assessment and Plan Assessment 07/21 * Based on the vanco level of 10.2, the predicted AUC24 is ~ 349mg/L.hr. Since it is below the desired goal range of 400-600mg/L.hr the vancomycin has been changed to 1250mg iv q 8 hours. * Flagyl also added to the cefepime and vancomycin--awaiting pleural fluid studies results (done 07/21) to de-escalate antibiotics. * Has been afebrile and WBC are trending down (13.6 K/ul today from 21.63 K/ul on initiation of abx) 07/20 * 79 year old M receiving cefepime and vancomycin for treatment of PNA and possible empyema. Anaerobic coverage may or may not be indicated - Dr. Wild to consider * Pertinent microbiologic data includes: Negative MRSA Nasal Swab, negative respiratory BioFire, blood cultures pending * SCr likely at baseline Plan Vancomycin * Vanco level of 10.2 today, predicted AUC24 is 349mg/L.hr * Maintenance dose: increased vancomycin to 1250 mg IV every 8 hours * New regimen is predicted to achieve target AUC/GREG of 400-600 mg/L.hr * Random level ordered for: 07/22 at 0930 Pharmacy will continue to follow and will adjust dose/frequency as necessary. Thank you. Pharmacy has transitioned to AUC monitoring for vancomycin. AUC/GREG is the preferred PK/PD target and is associated with decreased risk of nephrotoxicity compared to traditional trough targets.
[2024-07-21] MEDS: oxyCODONE HCL IR 5 MG TAB (IMMEDIATE RELEASE) PO PRN (13:49)
[2024-07-21] MEDS: ENOXAPARIN INJ 40 MG/0.4 ML SYR SQ SCH (13:50)
[2024-07-21] MEDS: MoRPHine SULFATE 2 MG/ML CARP IV STA (15:19)
[2024-07-22] MEDS: ONDANSETRON INJ 2 MG/ML 2 ML VIAL IV STA (06:13)
--- NOTE | 2024-07-22 07:11 | XRay Report ---
XR chest 1V portable CLINICAL HISTORY: Chest tube ? MIST 2 protocol COMPARISON STUDY: Chest radiograph July 21, 2024. FINDINGS: Right basilar pleural catheter remains in place. There is no pneumothorax. Small right pleu ral effusion has slightly decreased. Associated right basilar opacity. Cardiomegaly is again noted. I nterstitial thickening has slightly increased. IMPRESSION: 1. Right basilar pleural catheter in place. No pneumothorax. Small right pleural effusion, slightly d ecreased since prior exam. Associated right basilar opacity. 2. Cardiomegaly with increase in interstitial thickening. This may reflect pulmonary edema superimpos ed upon interstitial lung disease. ACT 112: Negative or not required by law. Electronically signed by: Donnie Biswas M.D. 07/22/2024 7:10 AM
[2024-07-22 07:23] LABS: Hematocrit (blood only) 31.9 % (42.0-52.0); Hemoglobin 10.8 g/dl (14.0-18.0); Mean Corpuscular Hemoglobin 32.1 pg (25.0-34.0); Mean Corpuscular Hgb Conc 33.9 g/dL (32.0-36.0); Mean Corpuscular Volume 94.9 fL (80.0-100.0); Platelet Count 398 K/uL (130-400); RDW Coefficient of Variation 12.8 % (11.5-14.5); RDW Standard Deviation 44.3 fL (36.4-46.3); Red Blood Count 3.36 M/uL (4.70-6.10); White Blood Count 13.61 K/ul (4.8-10.8)
[2024-07-22 07:48] LABS: BUN Creatinine Ratio 22.2 (10-20); Calcium 9.1 mg/dl (8.6-10.3); Creatinine Clr Calc Pharmacy 109.1 ml/min; Potassium 4.1 mmol/L (3.5-5.1)
--- NOTE | 2024-07-22 08:08 | Pulmonology Progress Note ---
Date of Service July 22, 2024 Assessment & Plan (1) Pleural effusion, right: (2) Pleurisy: (3) Right lower lobe pneumonia: (4) Acute right flank pain: (5) Interstitial lung disease: Plan Impression: 79-year-old male recently admitted with right lower lobe pneumonia and complex parapneumonic effusion status post pigtail catheter placement currently undergoing intrapleural fibrinolysis Recommendations: 1. Pneumonia: Day #2 Unasyn. The patient had been on Augmentin in the outpatient setting which may alter sensitivity of pleural fluid cultures. 2. Pleural effusion: Continue mist [address] on Toradol for analgesia. Tube will be continued until output is less than 200 cc/day and chest x-ray shows improvement. 3. Interstitial lung disease: Incidental finding. Correlation with outpatient CT scans and PFTs 4. Pulmonary nodule: The patient reports multiple prior CT scans performed through the [employer] system. Correlation with prior imaging will be required. If the nodule is demonstrated greater than 12 months of stability, no additional radiographic follow-up is needed. If the nodule is new, consideration for a follow-up CT scan in 3 months might be appropriate Will continue to follow with you Admission and Anticipated Discharge Date Admission Date: July 19, 2024 Subjective Patient seen and examined. EMR reviewed. The patient states he had a rough night. He had significant nausea and is now having chest discomfort related to the chest tube. It was unresponsive to the pain medications. He feels his breathing is about the same and overall he feels generally worse. He is coughing and expectorating small amounts of phlegm. No hemoptysis. Review of Systems Review of Systems: All systems reviewed & are unremarkable except as noted in Subjective Physical Exam Constitutional: WD/WN, vitals as above Neck: trachea midline, no thyromegaly Respiratory: no respiratory distress, no labored breathing, no cough and not tachypneic Auscultation: + diminished lung sounds; no crackles and no wheezes Cardiovascular: RRR, no murmur, no edema Gastrointestinal (Abdomen): normal bowel sounds, soft, nontender, no hepatosplenomegaly Musculoskeletal: Extremities: extremities normal to inspection Skin: no rashes, warm and dry Lymphatic: no cervical lymphadenopathy Results & Data Results & Data Vital Signs (Past 12 Hours) Vital Signs Temp Pulse Resp BP BP Pulse Ox O2 Del Method 07/22/24 07:59 37.1 C 82 18 131/71 94 Room Air 07/22/24 03:28 36.7 C 92 H 20 120/59 L 94 Room Air 07/22/24 00:02 37.1 C 102 H 20 122/61 93 Room Air 07/21/24 20:07 36.7 C 87 20 118/67 94 Room Air Laboratory Results Pleural fluid Gram stain, many white blood cells, no organisms. Pleural fluid studies: Differential: 28% neutrophils, 70% lymphocytes, 2% eosinophils Total protein 4.6 LDH 697 Glucose 78 Cytology pending Critical Care Results & Data Vital Signs (Past 12 Hours) Vital Signs Temp Pulse Resp BP BP Pulse Ox O2 Del Method 07/22/24 07:59 37.1 C 82 18 131/71 94 Room Air 07/22/24 03:28 36.7 C 92 H 20 120/59 L 94 Room Air 07/22/24 00:02 37.1 C 102 H 20 122/61 93 Room Air 07/21/24 20:07 36.7 C 87 20 118/67 94 Room Air Lab & Micro Results (Past 24 Hours) RBC 3.36 M/uL (4.70-6.10) L 07/22/24 WBC 13.61 K/ul (4.8-10.8) H 07/22/24 Hgb 10.8 g/dl (14.0-18.0) L 07/22/24 Hct 31.9 % (42.0-52.0) L 07/22/24 MCV 94.9 fL (80.0-100.0) 07/22/24 MCH 32.1 pg (25.0-34.0) 07/22/24 MCHC 33.9 g/dL (32.0-36.0) 07/22/24 RDW Standard Deviation 44.3 fL (36.4-46.3) 07/22/24 RDW Coefficient of Variation 12.8 % (11.5-14.5) 07/22/24 Plt Count 398 K/uL (130-400) 07/22/24 MPV 9.0 fL (9.4-12.4) L 07/22/24 Na 130 mmol/L (136-145) L 07/22/24 K 4.1 mmol/L (3.5-5.1) 07/22/24 Cl 101 mmol/L (98-107) 07/22/24 CO2 23 mmol/L (21-32) 07/22/24 Anion Gap 6 (3-11) 07/22/24 BUN 12 mg/dl (6-23) 07/22/24 Creatinine 0.54 mg/dl (0.6-1.4) L 07/22/24 BUN/Creatinine Ratio 22.2 (10-20) H 07/22/24 Glu 110 mg/dl (70-99(Fasting)) H 07/22/24 Ca 9.1 mg/dl (8.6-10.3) 07/22/24 Calcium Level 9.1 mg/dl (8.6-10.3) 07/22/24 06:50 Microbiology 07/19/24 15:05 Aerobic Blood Culture - Preliminary Blood No growth in Aerobic bottle after 48 hours. Anaerobic Blood Culture - Preliminary No growth in Anaerobic bottle after 48 hours. 07/19/24 15:14 Aerobic Blood Culture - Preliminary Blood No growth in Aerobic bottle after 48 hours. Anaerobic Blood Culture - Preliminary No growth in Anaerobic bottle after 48 hours. 07/21/24 08:30 Gram Stain - Final Pleural Fluid Diagnostic Findings (Past 24 Hours) Chest X-Ray 07/21/24 08:49 XR chest 1V portable CLINICAL HISTORY: S/P Thoracentesis COMPARISON STUDY: Chest CT July 10, 2024. Chest radiograph July 19, 2024. FINDINGS: There is no pneumothorax following interval placement of a right basilar pleural catheter. The right pleural effusion has decreased in size. A few residual pleural effusion is present. Cardiomegaly is again noted. There are median sternotomy wires and mediastinal surgical clips. Interstitial thickening persists. The left pleural effusion is identified. IMPRESSION: 1. No pneumothorax following placement of a right basilar pleural catheter. Decrease in size of the right pleural effusion. 2. Cardiomegaly with stable mild interstitial thickening. ACT 112: Negative or not required by law. Electronically signed by: Donnie Biswas M.D. 07/21/2024 9:46 AM Chest X-Ray 07/22/24 08:00 XR chest 1V portable CLINICAL HISTORY: Chest tube ? MIST 2 protocol COMPARISON STUDY: Chest radiograph July 21, 2024. FINDINGS: Right basilar pleural catheter remains in place. There is no pneumothorax. Small right pleural effusion has slightly decreased. Associated right basilar opacity. Cardiomegaly is again noted. Interstitial thickening has slightly increased. IMPRESSION: 1. Right basilar pleural catheter in place. No pneumothorax. Small right pleural effusion, slightly decreased since prior exam. Associated right basilar opacity. 2. Cardiomegaly with increase in interstitial thickening. This may reflect pulmonary edema superimposed upon interstitial lung disease. ACT 112: Negative or not required by law. Electronically signed by: Donnie Biswas M.D. 07/22/2024 7:10 AM I & O Totals 24 Hours 07/21/24 07/22/24 07/23/24 06:59 06:59 06:59 Intake Total 1350 / 1350 1365 / 1365 Output Total 1920 / 1920 Balance 1349 / 1349 -555 / -555 Cumulative 07/19/24 14:30 thru 07/22/24 06:49 Intake Total 3630 Output Total 1997 Balance 1632 RT Ventilator Mngmt (Last Documented) Ventilator Ordered Settings Respiratory Rate 18 07/22/24 07:59 Ventilator - PT Measurements Respiratory Rate 18 PG Care Time/CCT Total # of Minutes Spent Total Time Spent with Patient: Total time spent is greater than 50% in coordination of care (as documented) at patient's floor/unit and/or counseling patient: Coding Level of Care Code 04637 SUB INP/OBS CARE 2/35MIN Diagnoses Pleural effusion, right J90 Pleurisy R09.1 Right lower lobe pneumonia J18.9 Acute right flank pain R10.9 Interstitial lung disease J84.9
[2024-07-22] MEDS: KETOROLAC TROMETHAMINE 15 MG/ML VIAL IV PRN (08:55)
[2024-07-22] MEDS ORDERED: VANCOMYCIN LEVEL ONE (09:00)
[2024-07-22] MEDS: AMPICILLIN/SULBACTAM SOD 3,000 MG/100 ML BAG IV SCH (09:01)
--- NOTE | 2024-07-22 10:50 | Hospitalist Progress Note ---
Date of Service July 22, 2024 Assessment & Plan (1) Right lower lobe pneumonia: (2) Pleural effusion, right: Plan: Initial admission on 07/08/2024 with right lung pleurisy and right lower lobe pneumonia Treated with intravenous Unasyn and oral Doxy and was sent home on Augmentin on of this month Was evaluated by the entry level installation technician during that time Continued to have fever at home and outpatient lab showed leukocytosis Repeat chest x-ray on admission showed increasing effusion and increasing consolidation Leukocytosis improving. Was 21K on admission, down to 13K today Was initially on vanc, cefepime and flagyl, now deescalated to Unasyn Patient has empyema. S/p right chest tube placement on 07/21/24 Daily CXR while on Chest tube Follow up fluid culture Optimize pain control Increased oxycodone to 5mg q6h prn severe pain Continue Tylenol Pulm already added IV ketorolac prn (3) Permanent atrial fibrillation: Plan: Rate is controlled Was on eliquis at home Eliquis currently on hold due to chest tube. On 07/21/24, I discussed with jesus Burdick with hep or lovenox sq for DVT ppx for now while eliquis is on hold (4) CAD (coronary artery disease): Plan: No chest pain and/or palpitation (5) Hypertension: Plan: BP is controlled on current medications (6) Hyperlipidemia: Plan: Continue statin (7) Sleep apnea: Plan DVT ppx: lovenox sq while eliquis is on hold as above CODE STATUS- full I spent a total of 50 minutes coordinating, documenting and providing care for this patient excluding time spent in performance of separately billed services Admission and Anticipated Discharge Date Admission Date: July 19, 2024 Subjective Patient seen and examined Reports severe right sided pain at chest tube site Reports cough Denied SOB Denied other complaints on ROS Physical Exam Constitutional: + well hydrated; no acute distress Eyes: PERRL, conjunctivae normal, anicteric sclerae ENMT: external ear and nose normal, oropharynx normal Uses hearing aid Respiratory: On room air. Not in resp distress. Chest tube on right lateral chest wall. Diminished breath sounds RLL Cardiovascular: Rate/Rhythm: + irregularly irregular S1 S2 Gastrointestinal (Abdomen): normal bowel sounds, soft, nontender, no hepatosplenomegaly Neurologic: PERRL, EOMI, accommodation nl, no face palsy, no dysarthria Psychiatric: A+Ox3, euthymic affect Results & Data Results & Data Vital Signs (Past 12 Hours) Vital Signs Temp Pulse Resp BP BP Pulse Ox O2 Del Method 07/22/24 07:59 37.1 C 82 18 131/71 94 Room Air 07/22/24 03:28 36.7 C 92 H 20 120/59 L 94 Room Air 07/22/24 00:02 37.1 C 102 H 20 122/61 93 Room Air Laboratory Results Abnormal lab results 07/22/24 Range/Units 06:50 WBC 13.61 H (4.8-10.8) K/ul RBC 3.36 L (4.70-6.10) M/uL Hgb 10.8 L (14.0-18.0) g/dl Hct 31.9 L (42.0-52.0) % MPV 9.0 L (9.4-12.4) fL Sodium 130 L (136-145) mmol/L Creatinine 0.54 L (0.6-1.4) mg/dl BUN/Creatinine Ratio 22.2 H (10-20) Glucose 110 H (70-99(Fasting)) mg/dl
[2024-07-22] MEDS: oxyCODONE HCL IR 5 MG TAB (IMMEDIATE RELEASE) PO PRN (16:26)
[2024-07-22] MEDS ORDERED: SODIUM CHLORIDE 0.9% 500 ML IV ONE (23:52)
[2024-07-23] MEDS: SODIUM CHLORIDE 0.9% 250 ML IV ONE ×2 (00:23→01:44)
[2024-07-23 06:53] LABS: Hematocrit (blood only) 30.4 % (42.0-52.0); Hemoglobin 10.4 g/dl (14.0-18.0); Mean Corpuscular Hemoglobin 32.2 pg (25.0-34.0); Mean Corpuscular Hgb Conc 34.2 g/dL (32.0-36.0); Mean Corpuscular Volume 94.1 fL (80.0-100.0); Mean Platelet Volume 9.1 fL (9.4-12.4); Platelet Count 434 K/uL (130-400); RDW Coefficient of Variation 12.5 % (11.5-14.5); RDW Standard Deviation 43.2 fL (36.4-46.3); Red Blood Count 3.23 M/uL (4.70-6.10)
[2024-07-23 07:01] LABS: BUN Creatinine Ratio 24.1 (10-20); Creatinine Clr Calc Pharmacy 70.9 ml/min; Potassium 4.3 mmol/L (3.5-5.1)
--- NOTE | 2024-07-23 07:43 | XRay Report ---
SINGLE VIEW CHEST CLINICAL HISTORY: Chest tube FINDINGS: An AP, portable, upright chest radiograph is compared to study dated 07/22/2024 and correla akosua with chest CT dated 07/10/2024. The patient is status post midline sternotomy. The heart is enlar ged and noting atherosclerotic calcification of the thoracic aorta. There is pulmonary vascular conge stion. Bilateral opacities likely represent interstitial edema. Findings of chronic interstitial lung disease are similar to previous. A chest tube at the right lung base is unchanged. Small pleural eff usions persist. No pneumothorax is seen. The skeletal structures are osteopenic. The bony thorax is g rossly intact. IMPRESSION: 1. Cardiomegaly with evidence of congestive failure. 2. Bilateral airspace opacities favor pulmonary edema. Correlate clinically. 3. Right-sided chest tube is in place. No pneumothorax is clearly seen. 4. Trace pleural effusions persist. ACT 112: Negative or not required by law. Electronically signed by: Ken Palmer M.D. 07/23/2024 7:42 AM
--- NOTE | 2024-07-23 08:15 | Pulmonology Progress Note ---
Date of Service July 23, 2024 Assessment & Plan (1) Pleural effusion, right: (2) Pleurisy: (3) Right lower lobe pneumonia: (4) Acute right flank pain: (5) Interstitial lung disease: Plan Impression: 79-year-old male recently admitted with right lower lobe pneumonia and complex parapneumonic effusion status post pigtail catheter placement currently undergoing intrapleural fibrinolysis Recommendations: 1. Pneumonia: Day #3 Unasyn. The patient had been on Augmentin in the outpatient setting which may alter sensitivity of pleural fluid cultures. 2. Pleural effusion: Complete mist 2 protocol. Analgesia adequate with current regimen. Tube will be continued until output is less than 200 cc/day 3. Interstitial lung disease: Incidental finding. Correlation with outpatient CT scans and PFTs 4. Pulmonary nodule: The patient reports multiple prior CT scans performed through the [facility] system. Correlation with prior imaging will be required. If the nodule is demonstrated greater than 12 months of stability, no additional radiographic follow-up is needed. If the nodule is new, consideration for a follow-up CT scan in 3 months might be appropriate Will continue to follow with you Admission and Anticipated Discharge Date Admission Date: July 19, 2024 Subjective Patient seen and examined. EMR reviewed. The patient feels better this morning. His pain is adequately controlled. He is not experiencing nausea anymore. Continues to have high output from the chest drain. No fevers chills or night sweats overnight Review of Systems 2 Review of Systems: All systems reviewed & are unremarkable except as noted in Subjective Physical Exam 2 Constitutional: WD/WN, vitals as above Neck: trachea midline, no thyromegaly Respiratory: no respiratory distress, no labored breathing, no cough and not tachypneic Auscultation: + diminished lung sounds; no crackles and no wheezes Cardiovascular: RRR, no murmur, no edema Gastrointestinal (Abdomen): normal bowel sounds, soft, nontender, no hepatosplenomegaly Musculoskeletal: Extremities: extremities normal to inspection Skin: no rashes, warm and dry Lymphatic: no cervical lymphadenopathy Results & Data Results & Data Vital Signs (Past 12 Hours) Vital Signs Temp Pulse Pulse Resp BP BP Pulse Ox 07/23/24 02:27 36.2 C L 82 20 107/65 94 07/23/24 01:22 100 H 93/52 L 07/23/24 00:00 89 07/22/24 23:45 94 H 90/56 L 07/22/24 22:20 37.0 C 90 18 95/53 L 95 O2 Del Method 07/23/24 02:27 Room Air 07/23/24 01:22 07/23/24 00:00 07/22/24 23:45 07/22/24 22:20 Room Air Chest tube output 1700 cc last 24 hours Laboratory Results 07/23/24 06:00 07/23/24 06:00 Pleural fluid cytology negative Cultures no growth to date Diagnostic Findings Chest x-ray today was independently reviewed. Chest tube remains in good position. There appears to be significant improvement in the basilar airspace opacity compared to previous. Some linear atelectatic changes are identified PG Care Time/CCT Total # of Minutes Spent Total Time Spent with Patient: Total time spent is greater than 50% in coordination of care (as documented) at patient's floor/unit and/or counseling patient: Coding Level of Care Code 83854 SUB INP/OBS CARE 2/35MIN Diagnoses Pleural effusion, right J90 Pleurisy R09.1 Right lower lobe pneumonia J18.9 Acute right flank pain R10.9 Interstitial lung disease J84.9
--- NOTE | 2024-07-23 12:51 | Hospitalist Progress Note ---
Date of Service July 23, 2024 Assessment & Plan (1) Loculated pleural effusion: (2) Empyema of pleural space: (3) Permanent atrial fibrillation: (4) Interstitial lung disease: (5) Pleurisy: (6) Anxiety: Plan Patient with right empyema in the setting of recent right lower lobe pneumonia, still with significant output from chest tube Continue to monitor chest tube output, coordinate removal of chest tube with pulmonary Continue Unasyn Oral pain control Okay to MedSurg Resume Eliquis when chest tube removed for chronic anticoagulation for permanent atrial fibrillation Chest x-ray imaging showing some evidence of volume overload in the chest, 1 dose of oral Lasix Admission and Anticipated Discharge Date Admission Date: July 19, 2024 Subjective Patient reports that his pain is overall improved. Breathing is significantly improved. Nursing relates that anxiety seems to be contributing to some of his pain as well Physical Exam Physical Exam: Constitutional: Alert, nontoxic HEENT: Mucous membranes moist. Lungs: Chest tube right chest, decreased breath sounds in the right, prolonged expiratory phase, no wheezes, few fine crackles throughout CV: S1-S2, irregular Abdomen: Soft, nontender, nondistended Extremities: No significant edema Neuro: No focal deficits Psych: Cooperative, normal mood Results & Data Results & Data Vital Signs (Past 12 Hours) Vital Signs Temp Pulse Resp BP BP Pulse Ox O2 Del Method 07/23/24 08:14 36.8 C 93 H 16 97/61 L 95 Room Air 07/23/24 08:00 Room Air 07/23/24 02:27 36.2 C L 82 20 107/65 94 Room Air 07/23/24 01:22 100 H 93/52 L Diagnostic Findings Reviewed imaging, laboratory and diagnostic studies. Pertinent findings as below. Personally reviewed chest x-ray, some increasing congestion Greater than 1000 cc out of chest tube last 24 hours WBCs 14.7
[2024-07-23] MEDS ORDERED: DICLOFENAC SODIUM 25 MG TABDR PO PRN (13:04)
[2024-07-23] MEDS: FUROSEMIDE 40 MG TAB PO ONE (16:36)
[2024-07-23] MEDS ORDERED: POLYETHYLENE (MIRALAX) 17 GM PACK PO PRN (20:07)
[2024-07-23] MEDS: DOCUSATE SODIUM/SENNA 50/8.6MG TAB PO SCH (20:34)
[2024-07-23] MEDS: POLYETHYLENE (MIRALAX) 17 GM PACK PO STA (20:34)
[2024-07-24 07:10] LABS: BUN Creatinine Ratio 34.4 (10-20); Creatinine Clr Calc Pharmacy 91.9 ml/min; Potassium 4.5 mmol/L (3.5-5.1)
--- NOTE | 2024-07-24 07:45 | XRay Report ---
XR chest 1V portable CLINICAL HISTORY: Chest tube ? MIST 2 protocol COMPARISON STUDY: Chest radiograph July 23, 2024. FINDINGS: Right basilar pleural catheter remains in place. There may be a trace lateral pneumothorax. A small residual right pleural effusion is present. This has significantly improved from earlier exa ms. Minimal right basilar opacity is also improved. Cardiomegaly with mild interstitial pulmonary evie ma is unchanged. There are median sternotomy wires and mediastinal surgical clips. IMPRESSION: 1. Right basilar pleural catheter in place. Suspected trace lateral right pneumothorax. 2. Small residual right pleural effusion with minimal right basilar opacity, significantly improved f rom earlier exams. 3. Cardiomegaly with mild interstitial pulmonary edema, unchanged. ACT 112: Negative or not required by law. Electronically signed by: Donnie Biswas M.D. 07/24/2024 7:43 AM
--- NOTE | 2024-07-24 09:09 | Pulmonology Progress Note ---
Date of Service July 24, 2024 Assessment & Plan (1) Pleural effusion, right: (2) Pleurisy: (3) Right lower lobe pneumonia: (4) Acute right flank pain: (5) Interstitial lung disease: Plan Impression: 79-year-old male recently admitted with right lower lobe pneumonia and complex parapneumonic effusion status post pigtail catheter placement currently undergoing intrapleural fibrinolysis Recommendations: 1. Pneumonia: Day #4 Unasyn. Discontinue parenteral antibiotics and change to oral Augmentin. Will need an additional 2 weeks of therapy. 2. Pleural effusion: Complete mist 2 protocol. Analgesia adequate with current regimen. Tube will be continued until output is less than 200 cc/day 3. Interstitial lung disease: Incidental finding. Correlation with outpatient CT scans and PFTs 4. Pulmonary nodule: The patient reports multiple prior CT scans performed through the [facility] system. Correlation with prior imaging will be required. If the nodule is demonstrated greater than 12 months of stability, no additional radiographic follow-up is needed. If the nodule is new, consideration for a follow-up CT scan in 3 months might be appropriate Will continue to follow with you Admission and Anticipated Discharge Date Admission Date: July 19, 2024 Subjective Patient seen and examined. EMR reviewed. The patient is improving clinically. His pain is adequately controlled. He is not having any new respiratory issues currently. Review of Systems Review of Systems: All systems reviewed & are unremarkable except as noted in Subjective Physical Exam Constitutional: WD/WN, vitals as above Neck: trachea midline, no thyromegaly Respiratory: no respiratory distress, no labored breathing, no cough and not tachypneic Auscultation: + diminished lung sounds; no crackles and no wheezes Cardiovascular: RRR, no murmur, no edema Gastrointestinal (Abdomen): normal bowel sounds, soft, nontender, no hepatosplenomegaly Musculoskeletal: Extremities: extremities normal to inspection Skin: no rashes, warm and dry Lymphatic: no cervical lymphadenopathy Results & Data Results & Data Vital Signs (Past 12 Hours) Vital Signs Temp Pulse Pulse Pulse Resp BP Pulse Ox 07/24/24 08:13 07/24/24 07:53 36.5 C 78 18 127/77 95 07/24/24 03:57 36.4 C L 95 H 20 121/62 96 07/23/24 22:55 36.7 C 118 H 18 114/61 95 07/23/24 22:30 106 H O2 Del Method 07/24/24 08:13 Room Air 07/24/24 07:53 Room Air 07/24/24 03:57 Room Air 07/23/24 22:55 Room Air 07/23/24 22:30 Critical Care Results & Data Vital Signs (Past 12 Hours) Vital Signs Temp Pulse Pulse Pulse Resp BP Pulse Ox 07/24/24 08:13 07/24/24 07:53 36.5 C 78 18 127/77 95 07/24/24 03:57 36.4 C L 95 H 20 121/62 96 07/23/24 22:55 36.7 C 118 H 18 114/61 95 07/23/24 22:30 106 H O2 Del Method 07/24/24 08:13 Room Air 07/24/24 07:53 Room Air 07/24/24 03:57 Room Air 07/23/24 22:55 Room Air 07/23/24 22:30 Lab & Micro Results (Past 24 Hours) No Data to Display Na 134 mmol/L (136-145) L 07/24/24 K 4.5 mmol/L (3.5-5.1) 07/24/24 Cl 104 mmol/L (98-107) 07/24/24 CO2 23 mmol/L (21-32) 07/24/24 Anion Gap 7 (3-11) 07/24/24 BUN 22 mg/dl (6-23) 07/24/24 Creatinine 0.64 mg/dl (0.6-1.4) 07/24/24 BUN/Creatinine Ratio 34.4 (10-20) H 07/24/24 Glu 94 mg/dl (70-99(Fasting)) 07/24/24 Ca 9.0 mg/dl (8.6-10.3) 07/24/24 Calcium Level 9.0 mg/dl (8.6-10.3) 07/24/24 06:14 Microbiology 07/21/24 08:30 Gram Stain - Final Pleural Fluid Aerobic and Anaerobic Culture - Preliminary No growth to date. Diagnostic Findings (Past 24 Hours) Chest X-Ray 07/24/24 08:00 XR chest 1V portable CLINICAL HISTORY: Chest tube ? MIST 2 protocol COMPARISON STUDY: Chest radiograph July 23, 2024. FINDINGS: Right basilar pleural catheter remains in place. There may be a trace lateral pneumothorax. A small residual right pleural effusion is present. This has significantly improved from earlier exams. Minimal right basilar opacity is also improved. Cardiomegaly with mild interstitial pulmonary edema is unchanged. There are median sternotomy wires and mediastinal surgical clips. IMPRESSION: 1. Right basilar pleural catheter in place. Suspected trace lateral right pneumothorax. 2. Small residual right pleural effusion with minimal right basilar opacity, significantly improved from earlier exams. 3. Cardiomegaly with mild interstitial pulmonary edema, unchanged. ACT 112: Negative or not required by law. Electronically signed by: Donnie Biswas M.D. 07/24/2024 7:43 AM I & O Totals 24 Hours 07/23/24 07/24/24 07/25/24 06:59 06:59 06:59 Intake Total 1820 / 1820 900 / 900 Output Total 2330 / 2330 1166 / 1166 Balance -510 / -510 -266 / -266 Cumulative 07/19/24 14:30 thru 07/24/24 06:30 Intake Total 6350 Output Total 5494 Balance 856 RT Ventilator Mngmt (Last Documented) Ventilator Ordered Settings Respiratory Rate 18 07/24/24 07:53 Ventilator - PT Measurements Respiratory Rate 18 PG Care Time/CCT Total # of Minutes Spent Total Time Spent with Patient: Total time spent is greater than 50% in coordination of care (as documented) at patient's floor/unit and/or counseling patient: Coding Level of Care Code 52716 SUB INP/OBS CARE 2/35MIN Diagnoses Pleural effusion, right J90 Pleurisy R09.1 Right lower lobe pneumonia J18.9 Acute right flank pain R10.9 Interstitial lung disease J84.9
--- NOTE | 2024-07-24 12:17 | Hospitalist Progress Note ---
Date of Service July 24, 2024 Assessment & Plan (1) Loculated pleural effusion: (2) Empyema of pleural space: (3) Permanent atrial fibrillation: (4) Interstitial lung disease: (5) Pleurisy: (6) Anxiety: Plan Patient overall improving. Continue chest tube drainage, continue comanagement with pulmonary anticipate not removing chest tube until drainage significantly decreases. I reviewed pulmonary recommendations to transition to oral Augmentin, orders placed Monitor hemoglobin Continue to encourage incentive spirometry at bedside and updated Telemetry monitoring discontinued Continue to hold Eliquis while having significant output from chest tube Give additional dose of oral Lasix this afternoon based on chest x-ray findings. Admission and Anticipated Discharge Date Admission Date: July 19, 2024 Subjective Patient has no acute complaints overnight. Does feel the chest tube and a little bit of twinge in his chest when he takes a deep breath. Demonstrated good technique on incentive spirometry. Physical Exam Physical Exam: Constitutional: Alert, nontoxic HEENT: Mucous membranes moist. Lungs: Decreased breath sounds, no wheezes, dull right base, right sided chest tube CV: S1-S2, regular Abdomen: Soft, nontender, nondistended Extremities: No significant edema Neuro: No focal deficits Psych: Cooperative, normal mood Results & Data Results & Data Vital Signs (Past 12 Hours) Vital Signs Temp Pulse Pulse Pulse Resp BP Pulse Ox 07/24/24 11:23 36.4 C L 90 18 116/63 97 07/24/24 08:13 07/24/24 08:00 98 H 07/24/24 07:53 36.5 C 78 18 127/77 95 07/24/24 03:57 36.4 C L 95 H 20 121/62 96 O2 Del Method 07/24/24 11:23 Room Air 07/24/24 08:13 Room Air 07/24/24 08:00 07/24/24 07:53 Room Air 07/24/24 03:57 Room Air Diagnostic Findings Reviewed imaging, laboratory and diagnostic studies. Pertinent findings as below. Personally reviewed chest x-ray from today right pleural effusion improved, some mild pulmonary edema Electrolytes stable Output from chest tube greater than 1800 cc yesterday
[2024-07-24] MEDS: FUROSEMIDE 40 MG TAB PO ONE (15:30)
[2024-07-24] MEDS: AMOXICILLIN/CLAVULANATE 875 MG TAB PO SCH (17:55)
[2024-07-25 06:39] LABS: Hematocrit (blood only) 25.4 % (42.0-52.0); Hemoglobin 8.4 g/dl (14.0-18.0); Mean Corpuscular Hemoglobin 31.9 pg (25.0-34.0); Mean Corpuscular Hgb Conc 33.1 g/dL (32.0-36.0); Mean Corpuscular Volume 96.6 fL (80.0-100.0); Mean Platelet Volume 8.9 fL (9.4-12.4); Platelet Count 358 K/uL (130-400); RDW Coefficient of Variation 12.2 % (11.5-14.5); RDW Standard Deviation 42.6 fL (36.4-46.3); Red Blood Count 2.63 M/uL (4.70-6.10); White Blood Count 6.58 K/ul (4.8-10.8)
[2024-07-25 08:21] VITALS: RESP 16; O2SAT 97
--- NOTE | 2024-07-25 08:47 | XRay Report ---
XR chest 1V portable HISTORY: 79 years-old Male Chest tube ? MIST 2 protocol follow-up study in patient with right-sided chest tube COMPARISON: 07/24/2024 TECHNIQUE: AP view of the chest FINDINGS: Cardiomegaly with median sternotomy. Pulmonary vascular congestion with interstitial coarsening redem onstrated. Small pleural effusions. Unchanged positioning of the right basilar chest tube. Unchanged trace lateral right pneumothorax. Mild persistent bibasilar densities, most pronounced on the right. Bones appear grossly intact. IMPRESSION: 1. Cardiomegaly with unchanged pulmonary edema and small pleural effusions. 2. Stable positioning of the right-sided pleural catheter with unchanged trace lateral right-sided pn eumothorax. 3. Mild persistent right basilar predominant opacities. ACT 112: Negative or not required by law. The above report was generated using voice recognition software. It may contain grammatical, syntax o r spelling errors. Electronically signed by: Franco Shrestha M.D. 07/25/2024 8:15 AM
--- NOTE | 2024-07-25 08:59 | Pulmonology Progress Note ---
Date of Service July 25, 2024 Assessment & Plan (1) Pleural effusion, right: (2) Pleurisy: (3) Right lower lobe pneumonia: (4) Acute right flank pain: (5) Interstitial lung disease: Plan Impression: 79-year-old male recently admitted with right lower lobe pneumonia and complex parapneumonic effusion status post pigtail catheter placement he has completed a course of intrapleural fibrinolysis and drain output is less than 200 cc per 24 hours with improvement in the x-ray. Recommendations: 1. Pneumonia: Complete oral Augmentin 875 mg p.o. twice daily for an additional 10 days 2. Pleural effusion: Completed mist 2 protocol. Chest tube was removed today and a sterile dressing applied 3. Interstitial lung disease: Incidental finding. Correlation with outpatient CT scans and PFTs 4. Pulmonary nodule: The patient reports multiple prior CT scans performed through the [facility] system. Correlation with prior imaging will be required. If the nodule is demonstrated greater than 12 months of stability, no additional radiographic follow-up is needed. If the nodule is new, consideration for a follow-up CT scan in 3 months might be appropriate Patient can be dismissed from the hospital. He can follow-up with his [facility] providers or we would be happy to see him back in the pulmonary clinic in [facility] if needed. Feel free to contact us with questions or concerns Admission and Anticipated Discharge Date Admission Date: July 19, 2024 Subjective Patient seen and examined. EMR reviewed. The patient is doing well clinically. He feels fine. He is not having any pain. He is not coughing or wheezing. He feels like he wants to go home. He is tolerating a diet. Review of Systems 2 Review of Systems: All systems reviewed & are unremarkable except as noted in Subjective Physical Exam 2 Constitutional: WD/WN, vitals as above Neck: trachea midline, no thyromegaly Respiratory: no respiratory distress, no labored breathing, no cough and not tachypneic Auscultation: + diminished lung sounds; no crackles and no wheezes Cardiovascular: RRR, no murmur, no edema Gastrointestinal (Abdomen): normal bowel sounds, soft, nontender, no hepatosplenomegaly Musculoskeletal: Extremities: extremities normal to inspection Skin: no rashes, warm and dry Lymphatic: no cervical lymphadenopathy Results & Data Results & Data Vital Signs (Past 12 Hours) Vital Signs Temp Pulse Pulse Resp BP BP Pulse Ox 07/25/24 08:20 36.3 C L 89 16 124/64 97 07/25/24 08:15 07/25/24 07:47 74 07/25/24 00:25 71 07/24/24 23:54 36.8 C 81 18 102/47 L 96 O2 Del Method 07/25/24 08:20 Room Air 07/25/24 08:15 Room Air 07/25/24 07:47 07/25/24 00:25 07/24/24 23:54 Room Air Laboratory Results 07/25/24 06:12 07/24/24 06:14 Diagnostic Findings Chest x-ray from today was reviewed. Tubes in good position. No pneumothorax. Minimal residual basilar atelectasis/infiltrate with trivial amount of pleural fluid PG Care Time/CCT Total # of Minutes Spent Total Time Spent with Patient: Total time spent is greater than 50% in coordination of care (as documented) at patient's floor/unit and/or counseling patient: Coding Level of Care Code 49225 SUB INP/OBS CARE 3/50MIN Diagnoses Pleural effusion, right J90 Pleurisy R09.1 Right lower lobe pneumonia J18.9 Acute right flank pain R10.9 Interstitial lung disease J84.9
[2024-07-25 12:02] VITALS: BP 108/58; TEMP 97.9
--- NOTE | 2024-07-25 12:37 | Discharge Summary ---
Discharge Summary Date of Service July 25, 2024 Principal Dx & Hospital Course #1 = Principal Diagnosis (1) Loculated pleural effusion: (2) Empyema of pleural space: (3) Permanent atrial fibrillation: (4) Interstitial lung disease: (5) Pleurisy: (6) Anxiety: (7) Blood loss anemia: From chest tube placement. Plan Patient presented to the emergency room after being treated for significant right lower lobe pneumonia. However he continued to complain of fever, sweats and shortness of breath. In the outpatient setting his white blood cell count was still quite elevated and was sent for evaluation. In the emergency room imaging revealed an increasing right pleural effusion and consolidation. Patient was recommended for admission. Started on broad-spectrum IV antibiotics. Pulmonary consultation was obtained. Pulmonary initially did a ultrasound of the hemithorax which demonstrated a right pleural effusion of moderate size and multiseptated. This was consistent with an empyema. Patient 's Eliquis was held. And eventually underwent placement of a chest tube. Patient was continued on antibiotics intravenous. An patient's chest tube output was monitored on a daily basis. Through the course of this hospitalization the patient steadily improved. Within the last 24 hours drainage from the chest tube significantly decreased. Patient was titrated off oxygen. Chest tube was removed. Since chest tube being removed patient has been on room air. Has had no shortness of breath. No chest pain. Is transition to oral antibiotics. He can be discharged home to complete a course of antibiotics and follow-up with his outpatient provider and outpatient pulmonary. is at bedside at time of discharge and agreeable to the plan of care and discharge. Notes For Next Care Provider Recommend referral to outpatient pulmonary Consider repeat CT chest in approximately 3 months to evaluate if pulmonary nodule was infectious or some other pathology. Medication Changes From Visit Complete the course of Augmentin that was prescribed previously. Admission HPI Per Admitting Provider He is a 79-year-old male with significant past medical history of CAD status post CABG x 4, radiofrequency ablation, hypertension, hyperlipidemia, prediabetes, cerebellar ataxia, autoimmune cerebellar degeneration and also interstitial lung disease apparently was discharged from the hospital on of this month following an attack of right lower lobe pneumonia. He finished a course of Augmentin for 7 days and was seen by PCP and since that fever is continuing there is extended further 7 days. He has been complaining of fever with sweats associated with cough and more shortness of breath since Sunday. Outpatient lab work for cardiology follow-up showed white count to be elevated at 21,000 and she was advised to come to the emergency room. Denies any chest pain and/or palpitation, no abdominal pain nausea no vomiting, no increasing swelling of the legs and no neurological symptoms. In the ER chest x-ray did show increasing right pleural effusion and also increasing consolidation. He was started with intravenous vancomycin and cefepime and was advised for admission. Admission Exam Per Admitting Provider See H&P Discharge Exam Constitutional: Alert, sitting in chair, no acute distress HEENT: Mucous membranes moist. Lungs: Good air movement, improved in right lower lobe still somewhat decreased. No wheezes CV: S1-S2, irregular Abdomen: Soft, nontender, nondistended Extremities: No significant edema Neuro: No focal deficits Psych: Cooperative, normal mood Updated Medication List Medication Instructions Recorded Confirmed Type apixaban 5 mg tablet 5 mg PO BID 05/24/21 07/19/24 History atorvastatin 80 mg tablet 40 mg PO PM 05/24/21 07/19/24 History magnesium oxide 500 mg PO DAILY 05/24/21 07/19/24 History potassium chloride 20 mEq 20 meq PO QAM 05/24/21 07/19/24 History tablet,extended release aspirin 81 mg tablet,delayed 81 mg PO QAM 12/16/21 07/19/24 History release (Adult Aspirin Regimen) coenzyme Q10 200 mg capsule 200 mg PO DAILY 12/16/21 07/19/24 History cyanocobalamin (vitamin B-12) 500 500 mcg PO DAILY 12/16/21 07/19/24 History mcg tablet folic acid 0.8 mg capsule 0.8 mg PO DAILY 12/16/21 07/19/24 History furosemide 40 mg tablet 40 mg PO QAM 12/16/21 07/19/24 History losartan 50 mg tablet 100 mg PO QAM 12/16/21 07/19/24 History metoprolol succinate 25 mg 25 mg PO QAM 12/16/21 07/19/24 History tablet,extended release 24 hr nitroglycerin 0.4 mg sublingual 0.4 mg sublingual Q5M PRN Chest 12/16/21 07/19/24 History tablet Pain omeprazole 20 mg capsule,delayed 20 mg PO QAM 12/16/21 07/19/24 History release vit 168-iron 27 mg-folic 1 cap PO QAM 12/16/21 07/19/24 History acid 800 mcg-omega3 235 mg capsule (One-A-Day -1) vit C 250 mg-vit E 90 mg-zinc 40 1 tab PO DAILY 12/16/21 07/19/24 History mg-copper 1 ak-bboogl-ssdchp capsule (PreserVision AREDS-2) vitamin B complex (B 1 tab PO DAILY 12/21/21 07/19/24 History Complex-Vitamin B12 tablet) amlodipine 5 mg tablet 5 mg PO QAM 07/01/24 07/19/24 History evolocumab 140 mg/mL subcutaneous 140 mg subcut UD 07/01/24 07/19/24 History pen injector (Elizabeth Brown) hydralazine 25 mg tablet 25 mg PO TID 07/01/24 07/19/24 History amoxicillin 875 mg-potassium 1 tab PO BIDM #11 tabs 07/12/24 07/19/24 Rx clavulanate 125 mg tablet oxycodone 5 mg tablet 5 mg PO Q8H PRN severe pain (scale 07/12/24 07/19/24 Rx score 7-10) #10 tabs Hospital Stay Data Consultations 07/19/24 16:22 ED Decision to Admit Stat 07/19/24 17:35 Consult Pulmonology Routine Procedures Performed Chest tube placement and removal Diagnostic Imagining Performed Reviewed imaging, laboratory and diagnostic studies. Pertinent findings as below. Pleural fluid and blood cultures no specific growth WBCs 6.5 Hemoglobin 8.4 Platelets of 358 Electrolytes stable and within normal range Creatinine 0.64 Pending Results Patient Have Any Pending Studies at Discharge: No Discharge Instructions Given to Patient (Per Discharging Provider) Keep current dressing on your back in place until tomorrow. Then can remove and place a dry Band-Aid or sterile gauze bandage daily. Home Health Attestation I certify that this patient is under my care and that I, or a physicians assistant pastry chef working with me, had a face to-face encounter that meets the home health [facility] encounter requirements with this patient. The encounter with the patient was in whole, or in part, for the following medical condition, which is the primary reason for home health care (list medical condition): pneumonia-pleural effusion I certify that, based on my findings, the following services are medically necessary home health services: My clinical findings support the need for the above services because: OT Assess ADL Status and Restore Function w ADLs PT Assessment for Endurance / Balance / Strength PT Eval for Safety and Mobility PT Eval for Safety, Gait Training, Assistive Devices PT Gait and Balance Training, Strengthening and Safety Skilled Nsg Assessment Further, I certify that my clinical findings support that this patient is homebound (i.e. absences from home require considerable and taxing effort and are for medical reasons or latter day services or infrequently or of short duration when for other reasons) because: Transportation Assistance/Unable to Leave Home Unassisted Certification for Home Health Services: Based on the above findings, I certify that this patient is confined to the home and needs intermittent correction care, physical therapy and/or speech therapy or continues to need occupational therapy. The patient is under my care, and I have initiated the establishment of the plan of care. This patient will be followed by a physician who will periodically review the plan of care. Total Time Total Time Spent Total Time Spent (In Minutes): 40
[2024-07-25 13:31] VITALS: PULSE 95
== END 2024-07-25 14:36 | disposition home health service (06) | DRG 177 ==
LOC: ED 14:30 → SUATTDRO 17:15 → 2N 17:15